=== PATIENT | male | born 1950 | race Caucasian/White ===

== ENCOUNTER → 2017-12-30 17:07 | Outpatient (CLI) | payer MEDICARE, OTHER, SELFPAY ==
[2017-12-30 18:07] LABS: Add Manual Diff / Slide Review NO; Basophils Percent Auto 0.2 % (0-2); Hematocrit 44.8 % (41-53); Lymphocytes Percent Auto 6.5 % (25-40); Mean Corpuscular HGB Conc 33.5 % (30-36); Mean Corpuscular Hemoglobin 31.2 PG (26-34); Mean Corpuscular Volume 93.2 fL (80-100); Monocytes Percent Auto 12.7 % (3-14); Neutrophils Absolute Auto 4000 /uL (3000-5900); Neutrophils Percent Auto 80.6 % (50-75); Platelet Count 221 X10^3/uL (150-400); Red Blood Cell Count 4.81 X10^6/uL (4.5-5.9); Red Cell Distribution Width 14.9 % (11.6-14.8)
[2017-12-30 18:29] LABS: Alanine Aminotransferase 52 IU/L (21-72); Albumin 4.3 g/dL (3.5-5.0); Albumin Globulin Ratio 1.7 (1.0-2.8); Alkaline Phosphatase 117 U/L (38-126); Aspartate Aminotransferase 34 IU/L (17-59); Bilirubin Total 0.6 mg/dL (0.2-1.3); Blood Urea Nitrogen 10 mg/dL (9-20); Calcium 9.2 mg/dL (8.4-10.2); Carbon Dioxide 24 mmol/L (22-32); Chloride 102 mmol/L (98-107); Cholesterol 177 mg/dL (140-199); Estimated Glomerular Filt Rate > 60.0 mL/min (>60); Globulin 2.6 g/dL (1.7-4.1); Glucose 91 mg/dL (80-110); HDL Cholesterol 70 mg/dL (40-60); HEMOLYSIS 15 (0-50); LDL Cholesterol Calculated 86 mg/dL (<100); Potassium 4.2 mmol/L (3.4-5.1); Sodium 140 mmol/L (137-145); Total Protein 6.9 g/dL (6.3-8.2); Triglycerides 104 mg/dL (35-150)
[2017-12-30 18:46] LABS: Free T4, Direct Thyroxine 1.28 ng/dL (0.78-2.19)
[2017-12-30 18:59] LABS: Prostate Specific Antigen Scrn 4.08 ng/mL (0.1-4.0); Thyroid Stimulating Hormone < 0.02 uIU/mL (0.47-4.68)
== END ==
PROVIDERS: PCP Internal Medicine; Visit Provider Internal Medicine
DX: G35 Multiple sclerosis (principal); E78.2 Mixed hyperlipidemia; E03.9 Hypothyroidism, unspecified; Z12.5 Encounter for screening for malignant neoplasm of prostate
CPT/HCPCS: 36415; 80053; 80061; 84439; 84443; 85025; G0103

== ENCOUNTER → 2018-04-21 17:23 | Outpatient (CLI) | payer MEDICARE, OTHER, SELFPAY | PROVIDERS: Family Provider Internal Medicine; PCP Internal Medicine; Visit Provider Internal Medicine | DX: R97.20 Elevated prostate specific antigen [PSA] (principal) | CPT/HCPCS: 36415; 84153 ==

== ENCOUNTER → 2018-07-16 13:19 | Outpatient (CLI) | payer MEDICARE, OTHER, SELFPAY ==
[2018-07-16 14:22] LABS: Appearance Urine UA SL CLOUDY; Bilirubin Urine UA NEGATIVE (NEGATIVE); Color Urine UA YELLOW; Glucose Urine UA NEGATIVE (Negative); Ketones Urine UA NEGATIVE (NEGATIVE); Leukocyte Esterase Urine UA 1+ (NEGATIVE); Nitrite Urine UA POSITIVE (Negative); Occult Blood Urine UA 3+ (Negative); Protein Urine UA 2+ (Negative); Urobilinogen Urine UA 0.2 E.U./dL (0.2); pH Urine UA 8.5 (4.5-8.0)
[2018-07-16 14:46] LABS: RBC Urine 10-30/HPF (0-5/HPF); Triple Phosphate Crystal Urine Moderate; WBC Urine 30-100/HPF (0-5/HPF)
[2018-07-16 14:47] LABS: Bacteria Urine Many (>30); Culture Indicated Urine Specimen Cultured
== END ==
PROVIDERS: Family Provider Internal Medicine; PCP Internal Medicine; Visit Provider Student in an Organized Health Care Education/Training Program
DX: N30.01 Acute cystitis with hematuria (principal)
CPT/HCPCS: 81001; 87077; 87086; 87186

== ENCOUNTER → 2018-07-23 12:21 | Outpatient (CLI) | payer MEDICARE, OTHER, SELFPAY | PROVIDERS: Family Provider Internal Medicine; PCP Internal Medicine; Visit Provider Internal Medicine | DX: N39.0 Urinary tract infection, site not specified (principal) | CPT/HCPCS: 87077; 87086 ==

== ENCOUNTER → 2018-08-11 16:02 | Outpatient (CLI) | payer MEDICARE, OTHER, SELFPAY | PROVIDERS: PCP Internal Medicine; Visit Provider Internal Medicine | DX: N39.0 Urinary tract infection, site not specified (principal) | CPT/HCPCS: 87077; 87086; 87186 ==

== ENCOUNTER → 2018-11-07 13:23 | Outpatient (CLI) | payer MEDICARE, OTHER, SELFPAY ==
[2018-11-07 14:42] LABS: Add Manual Diff / Slide Review NO; Basophils Absolute Auto 0 /uL (0-100); Basophils Percent Auto 0.1 % (0-2); Eosinophils Absolute Auto 0 /uL (0-450); Hematocrit 46.4 % (41-53); Hemoglobin 15.2 g/dL (13.5-17.5); Lymphocytes Absolute Auto 300 /uL (1100-4500); Lymphocytes Percent Auto 8.1 % (25-40); Mean Corpuscular HGB Conc 32.7 % (30-36); Mean Corpuscular Volume 94.6 fL (80-100); Monocytes Absolute Auto 500 /uL (0-900); Monocytes Percent Auto 13.7 % (3-14); Neutrophils Absolute Auto 3100 /uL (1500-7000); Neutrophils Percent Auto 78.1 % (50-75); Platelet Count 196 X10^3/uL (150-400); Red Cell Distribution Width 15.5 % (11.6-14.8); White Blood Cell Count 3.9 X10^3/uL (4.5-11.0)
[2018-11-07 16:08] LABS: Alanine Aminotransferase 74 IU/L (21-72); Albumin 4.3 g/dL (3.5-5.0); Albumin Globulin Ratio 1.4 (1.0-2.8); Alkaline Phosphatase 143 U/L (38-126); Aspartate Aminotransferase 50 IU/L (17-59); Bilirubin Total 0.5 mg/dL (0.2-1.3); Blood Urea Nitrogen 9 mg/dL (9-20); Calcium 9.1 mg/dL (8.4-10.2); Carbon Dioxide 29 mmol/L (22-32); Chloride 100 mmol/L (98-107); Cholesterol 196 mg/dL (140-199); Estimated Glomerular Filt Rate > 60.0 mL/min (>60); Globulin 3.1 g/dL (1.7-4.1); Glucose 81 mg/dL (80-110); HDL Cholesterol 63 mg/dL (40-60); HEMOLYSIS < 15 (0-50); LDL Cholesterol Calculated 111 mg/dL (<100); Potassium 3.7 mmol/L (3.4-5.1); Sodium 140 mmol/L (137-145); Total Protein 7.4 g/dL (6.3-8.2); Triglycerides 109 mg/dL (35-150)
[2018-11-07 16:39] LABS: Prostate Specific Antigen 3.75 ng/mL (0.10-4.00)
[2018-11-07 16:41] LABS: Thyroid Stimulating Hormone < 0.02 uIU/mL (0.47-4.68)
[2018-11-07 16:57] LABS: Vitamin B12 474 pg/mL (239-931)
[2018-11-11 15:26] LABS: Carbamazepine Tegretol Level 11.5 mg/L (4.0-12.0)
== END ==
PROVIDERS: PCP Internal Medicine
DX: G50.0 Trigeminal neuralgia (principal); E03.9 Hypothyroidism, unspecified; E53.8 Deficiency of other specified B group vitamins; E78.2 Mixed hyperlipidemia; R94.5 Abnormal results of liver function studies; R97.20 Elevated prostate specific antigen [PSA]
CPT/HCPCS: 36415; 80053; 80061; 80156; 82607; 84153; 84439; 84443; 85025

== ENCOUNTER → 2019-01-29 11:01 | Outpatient (CLI) | payer MEDICARE, OTHER, SELFPAY ==
[2019-01-29 12:15] LABS: Appearance Urine UA SL CLOUDY; Bilirubin Urine UA NEGATIVE (NEGATIVE); Color Urine UA YELLOW; Glucose Urine UA NEGATIVE (Negative); Ketones Urine UA NEGATIVE (NEGATIVE); Leukocyte Esterase Urine UA 1+ (NEGATIVE); Nitrite Urine UA POSITIVE (Negative); Occult Blood Urine UA NEGATIVE (Negative); Protein Urine UA NEGATIVE (Negative); Specific Gravity Urine UA 1.015 (1.000-1.035); Urobilinogen Urine UA 0.2 E.U./dL (0.2); pH Urine UA 5.5 (4.5-8.0)
[2019-01-29 12:42] LABS: RBC Urine 0-1/HPF (0-5/HPF)
[2019-01-29 12:43] LABS: Amorphous Sediment Urine 2+; Bacteria Urine Many (>30); Culture Indicated Urine Specimen Cultured; Squamous Epithelial Cell Urine 0-1 /HPF (0-5/HPF); WBC Urine 1-5/HPF (0-5/HPF)
== END ==
PROVIDERS: PCP Internal Medicine; Visit Provider Internal Medicine
DX: R82.90 Unspecified abnormal findings in urine (principal); Z87.440 Personal history of urinary (tract) infections
CPT/HCPCS: 81003; 81015; 87077; 87086

== ENCOUNTER → 2019-02-10 15:00 | Outpatient (CLI) | payer MEDICARE, OTHER, SELFPAY | PROVIDERS: PCP Internal Medicine; Visit Provider Internal Medicine | DX: R30.0 Dysuria (principal) | CPT/HCPCS: 87077; 87086 ==

== ENCOUNTER 2019-03-01 14:43 | Observation (INO) | payer MEDICARE, OTHER, SELFPAY ==
[2019-03-01] VITALS (7 sets, daily range): BP systolic 127–185; BP diastolic 58–82; PULSE 78–107; RESP 14–18; TEMP 37.4–37.9; O2SAT 81–100; BMI 30.3
--- NOTE | 2019-03-01 14:52 | DI.RAD.S_ITS ---
PROCEDURE: XR CHEST 1V INDICATIONS: weakness confusion, hypoxia TECHNIQUE: One view of the chest was acquired. COMPARISON: [facility], , CHEST 1 VIEW, 04/25/2016, 13:10. FINDINGS: Surgical changes and devices: None. Lungs and pleura: There are low lung volumes, which may be related to shallow inspiration. Slight increased attenuation at the bilateral lung bases is oriented in a somewhat horizontal fashion. No large area of consolidation is present. No effusion or pneumothorax is appreciated. Mediastinum: Mediastinal contours appear normal. Heart size is normal. Bones and chest wall: No suspicious bony lesions. Overlying soft tissues appear unremarkable. IMPRESSION: Mild basilar atelectasis. No definite pneumonia. Dictated by: Uriel Arellano M.D. on 03/01/2019 at 14:30 Approved by: Uriel Arellano M.D. on 03/01/2019 at 14:31
--- NOTE | 2019-03-01 14:55 | ED_ITS ---
HPI - Altered Mental Status General Chief Complaint: Neuro Symptoms/Deficit Stated Complaint: Altered mental state Time Seen by Provider: 03/01/19 14:51 Source: EMS History of Present Illness HPI narrative: Patient is a 69-year-old male with history of MS presenting with decreasing mental status. He actually is found to be hypoxic he is not typically on oxygen but has a room air sat of 79% with good waveform. He is very slow to respond and warm to touch. He appears to be bed bound. Patient is at bedside now. She states his mental status actually declining yesterday. He normally is awake alert and oriented she is able to communicate with her easily. He texted her yesterday and said he was taking some of his medication. 2 pill bottles were right next to each other she thinks that he may have taken more oxycodone than he normally takes. Today he noticed that he was a little off an extra sleepy. She was unable to wake him up this afternoon.. At which point EMS was called. He is quite somnolent is in very difficult to arouse. He also has a history of subdural hematoma with recurrent bleed. Related Data Home Medications Medication Instructions Recorded Confirmed Gilenya 0.5 mg PO QDAY #0 04/25/16 03/01/19 carbamazepine ER 400 mg 400 mg PO BID 11/04/18 03/01/19 tablet,extended release,12 hr levothyroxine 150 mcg PO QAM 03/01/19 03/01/19 methylphenidate HCl 5 mg PO DAILY 03/01/19 03/01/19 Previous Rx's Medication Instructions Recorded [BACLOFEN INTRATHECAL] #0 03/29/16 liothyronine [Cytomel] 5 mcg PO BID #180 tab 02/28/18 amitriptyline 10 mg PO HS #90 tab 03/03/18 atorvastatin 10 mg tablet 10 mg PO HS #90 tab 07/21/18 venlafaxine ER 75 mg 75 mg PO TID #270 tab 11/07/18 capsule,extended release 24 hr gabapentin 300 mg capsule See Rx Instructions .ROUTE 12/29/18 .COMPLEX #990 cap oxycodone 20 mg tablet 10 - 40 mg PO Q4H PRN #540 tab 12/29/18 Allergies Allergy/AdvReac Type Severity Reaction Status Date / Time ciprofloxacin [CIPROFLOXACIN] Allergy Intermediate diarrhea Verified 03/01/19 15:00 (AFTER ONE TAB?!) codeine [CODEINE] AdvReac Mild MAKES HIM Verified 03/01/19 15:00 ILL morphine [MORPHINE] AdvReac Unknown NAUSEA / Verified 03/01/19 15:00 VOMITING Review of Systems Review of Systems ROS Unobtainable: Unobtainable due to medical condition Exam Initial Vital Signs Initial Vital Signs: Vital Signs Temperature 100.3 F H 03/01/19 14:42 Pulse Rate 86 03/01/19 14:42 Respiratory Rate 14 03/01/19 14:42 Blood Pressure 150/79 H 03/01/19 14:42 Pulse Oximetry 81 L 03/01/19 14:42 Gen.: Decreased mental status arousable to pain only HEENT: Head is atraumatic face symmetric Neck: Supple Lungs: Clear bilaterally no wheezes rales or rhonchi decreased respiratory rate Cardiac: Regular rate and rhythm no murmur Abdomen: Soft multiple scars noted Extremities: Lower legs are swollen feet are edematous no gross bony deformity Neurologic: Arousable to painful stimuli, Scores GCS [place] coma scale eye opening: To pressure [place] coma scale verbal response: Confused Fausto coma scale motor response: Localising [place] coma scale total score: 11 Course Orders Ordered: ED Orders 03/01/19 14:52 XR chest 1V Stat 03/01/19 14:53 EKG-12 Lead Stat 03/01/19 15:30 CT head/brain wo con Stat 03/01/19 15:43 B Type Natriuretic Peptide Stat Complete Blood Count AUTO DIFF Stat Comprehensive Metabolic Panel Stat Lactate (Lactic Acid) Stat Procalcitonin Stat Troponin & CK Cardiac Panel Stat 03/01/19 16:04 Acetaminophen Stat Ammonia (NH3) Stat Blood Culture Stat Ethanol (ETOH) Stat Salicylate Stat 03/01/19 16:11 Urine Drug Screen, Rapid Stat 03/01/19 16:41 Arterial Blood Gas Stat 03/01/19 17:06 CT abdomen pelvis w con Stat CT angio chest PE protocol Stat Discontinued Medications Acetaminophen (Tylenol) 650 mg ME NOW ONE Stop: 03/01/19 15:26 Last Admin: 03/01/19 16:36 Dose: 650 mg Sodium Chloride (Normal Saline 0.9%) 3,300 mls @ 1,100 mls/hr 30 ml/kg infuse over 3 hr (3300 ml) IV NOW ONE Stop: 03/01/19 18:24 Last Infusion: 03/01/19 19:15 Dose: 0 mls/hr Admin: 03/01/19 16:09 Dose: 1,100 mls/hr Naloxone HCl (Narcan) 2 mg IV NOW ONE Stop: 03/01/19 16:57 Last Admin: 03/01/19 17:00 Dose: 2 mg Vital Signs - 8 hr 03/01/19 14:42 03/01/19 16:00 03/01/19 16:30 Temperature 100.3 F H Pulse Rate 86 78 85 Respiratory Rate 14 16 Blood Pressure 150/79 H Blood Pressure [Left Arm] 127/58 L 170/71 H Pulse Oximetry 81 L 100 100 03/01/19 17:48 03/01/19 19:10 Temperature 99.3 F Pulse Rate 92 H 84 Respiratory Rate 17 Blood Pressure 164/82 H Blood Pressure [Left Arm] 185/77 H Pulse Oximetry 92 96 MDM - Altered Mental Status Lab Data Attestation: I reviewed the patient's lab results. Result diagrams: 03/01/19 15:43 03/01/19 15:43 Lab Results 03/01/19 03/01/19 03/01/19 Range/Units 15:43 15:43 15:43 WBC 6.1 (4.5-11.0) X10^3/uL RBC 4.56 (4.5-5.9) X10^6/uL Hgb 14.4 (13.5-17.5) g/dL Hct 43.7 (41-53) % MCV 95.6 (80-100) fL MCH 31.5 (26-34) PG MCHC 32.9 (30-36) % RDW 15.4 H (11.6-14.8) % Plt Count 208 (150-400) X10^3/uL Neut % (Auto) 80.5 H (50-75) % Lymph % (Auto) 5.4 L (25-40) % [place] % (Auto) 13.8 (3-14) % Eos % (Auto) 0.1 L (2-4) % Baso % (Auto) 0.2 (0-2) % Neut # (Auto) 4900 (5837-2121) /uL Lymph # (Auto) 300 L (0905-9111) /uL [place] # (Auto) 800 (0-900) /uL Eos # (Auto) 0 (0-450) /uL Baso # (Auto) 0 (0-100) /uL ABG pH (7.35-7.45) ABG pCO2 (35-45) mmHg ABG pO2 (80-100) mmHg ABG HCO3 (22-26) mmol/L ABG Total CO2 (21-31) mmol/L ABG O2 Saturation (95-100) % ABG Base Excess (-2-2) mmol/L FiO2 Sodium 140 (137-145) mmol/L Potassium 4.2 (3.4-5.1) mmol/L Chloride 104 (98-107) mmol/L Carbon Dioxide 27 (22-32) mmol/L BUN 14 (9-20) mg/dL Creatinine 0.60 L (0.66-1.25) mg/dL Estimated GFR > 60.0 (>60) mL/min BUN/Creatinine Ratio 23.3 H (6-22) Glucose 106 (80-110) mg/dL Lactate (0.7-2.1) mmol/L Calcium 9.2 (8.4-10.2) mg/dL Total Bilirubin 0.7 (0.2-1.3) mg/dL AST 42 (17-59) IU/L ALT 38 (21-72) IU/L Alkaline Phosphatase 112 (38-126) U/L Ammonia (9-30) umol/L Total Creatine Kinase (55-170) U/L CK-MB (CK-2) (<2.37) ng/mL CK-MB (CK-2) Rel Index (1.5-5.0) % Troponin I (0.01-0.034) ng/mL B-Natriuretic Peptide (<100) Total Protein 7.1 (6.3-8.2) g/dL Albumin 4.2 (3.5-5.0) g/dL Globulin 2.9 (1.7-4.1) g/dL Albumin/Globulin Ratio 1.4 (1.0-2.8) Procalcitonin < 0.05 (<0.5) ng/mL Salicylates (<20) mg/dL Urine Opiates Screen (Negative) Ur Oxycodone Screen (Negative) Urine Methadone Screen (Negative) Acetaminophen (10-30) ug/mL Ur Barbiturates Screen (Negative) U Tricyclic Antidepress (Negative) Ur Phencyclidine Scrn (Negative) Ur Amphetamines Screen (Negative) U Methamphetamines Scrn (Negative) Ur MDMA Scrn (Ecstasy) (Negative) U Benzodiazepines Scrn (Negative) Urine Cocaine Screen (Negative) U Marijuana (THC) Screen (Negative) Ethyl Alcohol ( - 10) mg/dL 03/01/19 03/01/19 03/01/19 Range/Units 15:43 15:43 15:43 WBC (4.5-11.0) X10^3/uL RBC (4.5-5.9) X10^6/uL Hgb (13.5-17.5) g/dL Hct (41-53) % MCV (80-100) fL MCH (26-34) PG MCHC (30-36) % RDW (11.6-14.8) % Plt Count (150-400) X10^3/uL Neut % (Auto) (50-75) % Lymph % (Auto) (25-40) % [place] % (Auto) (3-14) % Eos % (Auto) (2-4) % Baso % (Auto) (0-2) % Neut # (Auto) (2844-4341) /uL Lymph # (Auto) (3863-1761) /uL [place] # (Auto) (0-900) /uL Eos # (Auto) (0-450) /uL Baso # (Auto) (0-100) /uL ABG pH (7.35-7.45) ABG pCO2 (35-45) mmHg ABG pO2 (80-100) mmHg ABG HCO3 (22-26) mmol/L ABG Total CO2 (21-31) mmol/L ABG O2 Saturation (95-100) % ABG Base Excess (-2-2) mmol/L FiO2 Sodium (137-145) mmol/L Potassium (3.4-5.1) mmol/L Chloride (98-107) mmol/L Carbon Dioxide (22-32) mmol/L BUN (9-20) mg/dL Creatinine (0.66-1.25) mg/dL Estimated GFR (>60) mL/min BUN/Creatinine Ratio (6-22) Glucose (80-110) mg/dL Lactate 1.2 (0.7-2.1) mmol/L Calcium (8.4-10.2) mg/dL Total Bilirubin (0.2-1.3) mg/dL AST (17-59) IU/L ALT (21-72) IU/L Alkaline Phosphatase (38-126) U/L Ammonia (9-30) umol/L Total Creatine Kinase 141 (55-170) U/L CK-MB (CK-2) 2.64 H (<2.37) ng/mL CK-MB (CK-2) Rel Index 1.9 (1.5-5.0) % Troponin I < 0.012 (0.01-0.034) ng/mL B-Natriuretic Peptide < 100 (<100) Total Protein (6.3-8.2) g/dL Albumin (3.5-5.0) g/dL Globulin (1.7-4.1) g/dL Albumin/Globulin Ratio (1.0-2.8) Procalcitonin (<0.5) ng/mL Salicylates (<20) mg/dL Urine Opiates Screen (Negative) Ur Oxycodone Screen (Negative) Urine Methadone Screen (Negative) Acetaminophen (10-30) ug/mL Ur Barbiturates Screen (Negative) U Tricyclic Antidepress (Negative) Ur Phencyclidine Scrn (Negative) Ur Amphetamines Screen (Negative) U Methamphetamines Scrn (Negative) Ur MDMA Scrn (Ecstasy) (Negative) U Benzodiazepines Scrn (Negative) Urine Cocaine Screen (Negative) U Marijuana (THC) Screen (Negative) Ethyl Alcohol ( - 10) mg/dL 03/01/19 03/01/19 03/01/19 Range/Units 16:04 16:04 16:11 WBC (4.5-11.0) X10^3/uL RBC (4.5-5.9) X10^6/uL Hgb (13.5-17.5) g/dL Hct (41-53) % MCV (80-100) fL MCH (26-34) PG MCHC (30-36) % RDW (11.6-14.8) % Plt Count (150-400) X10^3/uL Neut % (Auto) (50-75) % Lymph % (Auto) (25-40) % [place] % (Auto) (3-14) % Eos % (Auto) (2-4) % Baso % (Auto) (0-2) % Neut # (Auto) (8302-9283) /uL Lymph # (Auto) (6608-4775) /uL [place] # (Auto) (0-900) /uL Eos # (Auto) (0-450) /uL Baso # (Auto) (0-100) /uL ABG pH (7.35-7.45) ABG pCO2 (35-45) mmHg ABG pO2 (80-100) mmHg ABG HCO3 (22-26) mmol/L ABG Total CO2 (21-31) mmol/L ABG O2 Saturation (95-100) % ABG Base Excess (-2-2) mmol/L FiO2 Sodium (137-145) mmol/L Potassium (3.4-5.1) mmol/L Chloride (98-107) mmol/L Carbon Dioxide (22-32) mmol/L BUN (9-20) mg/dL Creatinine (0.66-1.25) mg/dL Estimated GFR (>60) mL/min BUN/Creatinine Ratio (6-22) Glucose (80-110) mg/dL Lactate (0.7-2.1) mmol/L Calcium (8.4-10.2) mg/dL Total Bilirubin (0.2-1.3) mg/dL AST (17-59) IU/L ALT (21-72) IU/L Alkaline Phosphatase (38-126) U/L Ammonia 22.0 (9-30) umol/L Total Creatine Kinase (55-170) U/L CK-MB (CK-2) (<2.37) ng/mL CK-MB (CK-2) Rel Index (1.5-5.0) % Troponin I (0.01-0.034) ng/mL B-Natriuretic Peptide (<100) Total Protein (6.3-8.2) g/dL Albumin (3.5-5.0) g/dL Globulin (1.7-4.1) g/dL Albumin/Globulin Ratio (1.0-2.8) Procalcitonin (<0.5) ng/mL Salicylates < 1.0 (<20) mg/dL Urine Opiates Screen Negative (Negative) Ur Oxycodone Screen Positive H (Negative) Urine Methadone Screen Negative (Negative) Acetaminophen < 10 L (10-30) ug/mL Ur Barbiturates Screen Negative (Negative) U Tricyclic Antidepress Positive H (Negative) Ur Phencyclidine Scrn Negative (Negative) Ur Amphetamines Screen Negative (Negative) U Methamphetamines Scrn Negative (Negative) Ur MDMA Scrn (Ecstasy) Negative (Negative) U Benzodiazepines Scrn Negative (Negative) Urine Cocaine Screen Negative (Negative) U Marijuana (THC) Screen Negative (Negative) Ethyl Alcohol < 10 ( - 10) mg/dL 03/01/19 Range/Units 16:41 WBC (4.5-11.0) X10^3/uL RBC (4.5-5.9) X10^6/uL Hgb (13.5-17.5) g/dL Hct (41-53) % MCV (80-100) fL MCH (26-34) PG MCHC (30-36) % RDW (11.6-14.8) % Plt Count (150-400) X10^3/uL Neut % (Auto) (50-75) % Lymph % (Auto) (25-40) % [place] % (Auto) (3-14) % Eos % (Auto) (2-4) % Baso % (Auto) (0-2) % Neut # (Auto) (1906-7495) /uL Lymph # (Auto) (7264-4944) /uL [place] # (Auto) (0-900) /uL Eos # (Auto) (0-450) /uL Baso # (Auto) (0-100) /uL ABG pH 7.25 L* (7.35-7.45) ABG pCO2 64.7 H* (35-45) mmHg ABG pO2 98 (80-100) mmHg ABG HCO3 29 H (22-26) mmol/L ABG Total CO2 30 (21-31) mmol/L ABG O2 Saturation 96 (95-100) % ABG Base Excess 1.0 (-2-2) mmol/L FiO2 44 Sodium (137-145) mmol/L Potassium (3.4-5.1) mmol/L Chloride (98-107) mmol/L Carbon Dioxide (22-32) mmol/L BUN (9-20) mg/dL Creatinine (0.66-1.25) mg/dL Estimated GFR (>60) mL/min BUN/Creatinine Ratio (6-22) Glucose (80-110) mg/dL Lactate (0.7-2.1) mmol/L Calcium (8.4-10.2) mg/dL Total Bilirubin (0.2-1.3) mg/dL AST (17-59) IU/L ALT (21-72) IU/L Alkaline Phosphatase (38-126) U/L Ammonia (9-30) umol/L Total Creatine Kinase (55-170) U/L CK-MB (CK-2) (<2.37) ng/mL CK-MB (CK-2) Rel Index (1.5-5.0) % Troponin I (0.01-0.034) ng/mL B-Natriuretic Peptide (<100) Total Protein (6.3-8.2) g/dL Albumin (3.5-5.0) g/dL Globulin (1.7-4.1) g/dL Albumin/Globulin Ratio (1.0-2.8) Procalcitonin (<0.5) ng/mL Salicylates (<20) mg/dL Urine Opiates Screen (Negative) Ur Oxycodone Screen (Negative) Urine Methadone Screen (Negative) Acetaminophen (10-30) ug/mL Ur Barbiturates Screen (Negative) U Tricyclic Antidepress (Negative) Ur Phencyclidine Scrn (Negative) Ur Amphetamines Screen (Negative) U Methamphetamines Scrn (Negative) Ur MDMA Scrn (Ecstasy) (Negative) U Benzodiazepines Scrn (Negative) Urine Cocaine Screen (Negative) U Marijuana (THC) Screen (Negative) Ethyl Alcohol ( - 10) mg/dL Urine Dip Bedside Urine Glucose Negative Bedside Urine Bilirubin - Negative Bedside Urine Ketone - Negative Urine Specific Fox 1.015 Bedside Urine Occult Blood - Negative Bedside Urine pH 6.0 Bedside Urine Protein +/- 15 Bedside Urine Urobilinogen - Negative Bedside Urine Nitrite - Negative Bedside Urine Leukocytes - Negative Esterase Imaging Data Chest x-ray: Radiologist's impression: PROCEDURE: XR CHEST 1V INDICATIONS: weakness confusion, hypoxia TECHNIQUE: One view of the chest was acquired. COMPARISON: [facility], CHEST 1 VIEW, 04/25/2016, 13:10. FINDINGS: Surgical changes and devices: None. Lungs and pleura: There are low lung volumes, which may be related to shallow inspiration. Slight increased attenuation at the bilateral lung bases is oriented in a somewhat horizontal fashion. No large area of consolidation is present. No effusion or pneumothorax is appreciated. Mediastinum: Mediastinal contours appear normal. Heart size is normal. Bones and chest wall: No suspicious bony lesions. Overlying soft tissues appear unremarkable. IMPRESSION: Mild basilar atelectasis. No definite pneumonia. Dictated by: Uriel Arellano M.D. on 03/01/2019 at 14:30 CT scan - head: Radiologist's impression: PROCEDURE: CT HEAD/BRAIN WO CON INDICATIONS: altered mental status TECHNIQUE: Noncontrast 4.5 mm thick angled axial sections acquired from the foramen magnum to the vertex, with coronal and sagittal reformats. For radiation dose reduction, the following was used: automated exposure control, adjustment of mA and/or kV according to patient size. COMPARISON: [facility], CT, HEAD WITHOUT CONTRAST, 01/30/2015, 16:51. [facility], MR, BRAIN W&WO CONTRAST, 04/26/2016, 15:10. [facility], CT, HEAD WITHOUT CONTRAST, 04/25/2016, 20:30. [facility], CT, HEAD WITHOUT CONTRAST, 04/25/2016, 13:22. [facility], CT, HEAD WITHOUT CONTRAST, 03/22/2016, 18:41. [facility],, HEAD WITHOUT CONTRAST, 12/26/2012, 19:29. FINDINGS: Image quality: Excellent. CSF spaces: Basal cisterns are patent. The ventricles are symmetric in size and shape. Brain: Within the subdural space, deep to the craniotomy changes, there is a rind of hyperdense material seen that measures 4 mm in thickness. This is similar to 2016. No significant mass effect is seen. There is minimal, stable midline shift of 2 mm. Volume loss encephalomalacia can be seen involving right cerebral hemisphere, particularly involving the anterior temporal lobe. There is cerebral volume loss for age, with resultant ventricular and sulcal prominence. There are periventricular and deep white matter chronic small vessel ischemic changes. There is intracranial internal carotid artery atherosclerosis. Skull and face: Right sided craniotomy changes are seen. Calvarium and visualized facial bones appear intact, without suspicious lesions. Sinuses: Visualized sinuses and mastoids are clear. IMPRESSION: Deep to the right sided craniotomy change, there is a 4 mm rind of hyperdense material seen, which is similar to 2016. Differential diagnosis includes recurrent subdural hemorrhage and stable postoperative change. Please correlate with known patient history. If clinically appropriate, please consider short-term followup noncontrast head CT. Note: Findings and recommendations discussed by telephone with Dr. Ramirez at 4:50 PM [place] time on the day of dictation. Dictated by: Bubba Lozada M.D. on 03/01/2019 at 15:42 CT scan - chest: Radiologist's impression: PROCEDURE: CT ANGIO CHEST PE PROTOCOL INDICATIONS: hypoxia TECHNIQUE: After the administration of intravenous contrast, 2 mm thick sections acquired from the pulmonary apices to the posterior costophrenic angles. 3-dimensional maximum intensity projection (MIP) coronal and sagittal reformats were then acquired through the thorax. For radiation dose reduction, the following was used: automated exposure control, adjustment of mA and/or kV according to patient size. COMPARISON: [facility], CT, CT HEAD/BRAIN WO [facility], 03/01/2019, 16:07. [facility], CT, T-SPINE WITHOUT CONTRAST, 11/09/2014, 14:23. [facility], CT, L-SPINE WITHOUT CONTRAST, 11/09/2014, 14:23. [facility], CT, CT ABDOMEN PELVIS W CON, 03/01/2019, 17:22. FINDINGS: Image quality: Excellent. Pulmonary arteries: Pulmonary arteries are normal in size, and demonstrate no intraluminal filling defects to suggest central pulmonary embolism. Lungs and pleura: Mild dependent enhancing density is seen, which has the appearance of atelectasis. No pleural effusions or pneumothorax. Central and peripheral airways are patent. Mediastinum: Heart size is normal, without pericardial effusion. No mediastinal or hilar adenopathy. Thoracic aorta is normal in caliber and enhancement. Mild dextroconvex scoliotic curvature is seen. Esophagus is normal in caliber, without hiatal hernia. Bones and chest wall: No suspicious bony lesions. Relatively prominent bony degenerative changes are seen. Ribs and thoracic spine appear intact throughout. Thyroid gland is not well-seen on this study. No axillary or supraclavicular adenopathy. A thoracic spine catheter is seen. Abdomen: Gallstones can be seen within the gallbladder. The visualized portions of the upper abdominal structures are otherwise unremarkable for imaging technique. IMPRESSION: Negative for pulmonary embolism. Incidental note is made of: Mild dependent atelectasis Gallstones Thoracic spine pain catheter Relatively prominent bony degenerative change Mild dextroconvex scoliotic curvature Dictated by: Bubba Lozada M.D. on 03/01/2019 at 17:07 CT scan - abdomen: Radiologist's impression: PROCEDURE: CT ABDOMEN PELVIS W CON INDICATIONS: pain TECHNIQUE: After the administration of intravenous contrast, 5 mm thick sections acquired from the diaphragm to the symphysis. 5 mm coronal and sagittal reformats were acquired. For radiation dose reduction, the following was used: automated exposure control, adjustment of mA and/or kV according to patient size. COMPARISON: [facility], CT, L-SPINE WITHOUT CONTRAST, 11/09/2014, 14:23. [facility], CT, CT ANGIO CHEST PE PROTOCOL, 03/01/2019, 17:22. [facility], CT, CT HEAD/BRAIN WO CON, 03/01/2019, 16:07. FINDINGS: Image quality: There is streak artifact seen through the upper abdomen ABDOMEN: Lung bases: Mild dependent atelectasis is seen. Heart size is normal. Solid organs: Liver is normal in size and enhancement. Gallbladder contains gallstones within its lumen. Biliary system is non dilated. Pancreas enhances normally. Spleen is normal in size and enhancement. No adrenal nodules. Kidneys demonstrate normal size and enhancement, without hydronephrosis. Peritoneum and bowel: There is a moderate amount of stool seen within the rectum. Bowel loops demonstrate normal wall thickness and caliber. No free fluid or air. No appendix (either normal or abnormal) is identified on this study. Diverticulosis is seen, without findings of active diverticulitis. Nodes and vessels: No retroperitoneal or mesenteric adenopathy by size criteri a. Aorta and inferior vena cava are normal in size. An IVC filter is seen. Miscellaneous: No ventral hernias. PELVIS: Genitourinary: There are bladder is decompressed by a Camargo catheter. Miscellaneous: Mild bilateral fat containing inguinal hernias are seen. No enlarged inguinal lymph nodes are seen. There is a thoracic spine catheter seen. Bones: No suspicious bony lesions. No vertebral body compression fractures. Mild dextroconvex scoliotic curvature is seen. Relatively prominent bony degenerative changes are seen. IMPRESSION: No definite, acute abnormality is seen. A moderate amount of stool can be seen within the rectum. Incidental note is made of: Thoracic spine catheter Gallstones Dependent atelectasis Diverticulosis is seen, without findings of active diverticulitis. Camargo catheter A fat-containing bilateral inguinal hernias IVC filter Dextroconvex scoliotic curvature Dictated by: Bubba Lozada M.D. on 03/01/2019 at 17:11 ECG Data Attestation: I personally reviewed and interpreted this ECG as follows: Prior ECG tracings: available for review Interpretation: Normal sinus rhythm rate 84 p.r. interval 144 Q-wave noted in lead [address] elevations no T-wave inversion MDM Narrative Medical decision making narrative: Patient very difficult to arouse. Hypoxic requiring a significant amount of oxygen. Head CT does show questionable bleeding versus scar tissue. Imaging was sent down to [facility] were patient's last CT was done Dr. Bojorquez, neurosurgery at [facility] has reviewed today CT and compared to previous. It looks very similar no acute bleeding. Patient was given 2 mg of Narcan and he became more awake, but still needing oxygen. Confused about why he is here. He actually does not have any vomiting or diarrhea. ABG consistent with hypercapnia and possible opiate overdose. Patient initially febrile 100.3 sepsis workup is negative. No pneumonia no uti. Lactic acid within normal limits procalcitonin is negative. At this time only source of decreasing mental status is opiates. The patient still requiring oxygen and will need to be monitored closely. Dr. Olivares updated on patient's symptoms and test results agrees with observation she will come into the patient. Opiod form filled out Discharge Plan Departure Patient Disposition: Admitted as Observation Clinical Impression: Acute metabolic encephalopathy Opioid overdose Qualifiers: Encounter type: initial encounter Injury intent: accidental or unintentional Qualified Code(s): T40.2X1A - Poisoning by other opioids, accidental (unintentional), initial encounter Discharge Date/Time: 03/01/19 19:18 Interventions: ED Discharge Assessment Last Done: 03/01/19 19:10 Admit Date/Time: 03/01/19 18:57 Admit Provider: Joi Olivares
--- NOTE | 2019-03-01 15:30 | DI.CT.S_ITS ---
PROCEDURE: CT HEAD/BRAIN WO CON INDICATIONS: altered mental status TECHNIQUE: Noncontrast 4.5 mm thick angled axial sections acquired from the foramen magnum to the vertex, with coronal and sagittal reformats. For radiation dose reduction, the following was used: automated exposure control, adjustment of mA and/or kV according to patient size. COMPARISON: [facility], CT, HEAD WITHOUT CONTRAST, 01/30/2015, 16:51. [facility], MR, BRAIN W&WO CONTRAST, 04/26/2016, 15:10. [facility], CT, HEAD WITHOUT CONTRAST, 04/25/2016, 20:30. [facility], CT, HEAD WITHOUT CONTRAST, 04/25/2016, 13:22. [facility], CT, HEAD WITHOUT CONTRAST, 03/22/2016, 18:41. [facility],, HEAD WITHOUT CONTRAST, 12/26/2012, 19:29. FINDINGS: Image quality: Excellent. CSF spaces: Basal cisterns are patent. The ventricles are symmetric in size and shape. Brain: Within the subdural space, deep to the craniotomy changes, there is a rind of hyperdense material seen that measures 4 mm in thickness. This is similar to 2016. No significant mass effect is seen. There is minimal, stable midline shift of 2 mm. Volume loss encephalomalacia can be seen involving right cerebral hemisphere, particularly involving the anterior temporal lobe. There is cerebral volume loss for age, with resultant ventricular and sulcal prominence. There are periventricular and deep white matter chronic small vessel ischemic changes. There is intracranial internal carotid artery atherosclerosis. Skull and face: Right sided craniotomy changes are seen. Calvarium and visualized facial bones appear intact, without suspicious lesions. Sinuses: Visualized sinuses and mastoids are clear. IMPRESSION: Deep to the right sided craniotomy change, there is a 4 mm rind of hyperdense material seen, which is similar to 2016. Differential diagnosis includes recurrent subdural hemorrhage and stable postoperative change. Please correlate with known patient history. If clinically appropriate, please consider short-term followup noncontrast head CT. Note: Findings and recommendations discussed by telephone with Dr. Ramirez at 4:50 PM [place] time on the day of dictation. Dictated by: Bubba Lozada M.D. on 03/01/2019 at 15:42 Approved by: Bubba Lozada M.D. on 03/01/2019 at 15:52
[2019-03-01 16:05] LABS: Add Manual Diff / Slide Review NO; Basophils Absolute Auto 0 /uL (0-100); Basophils Percent Auto 0.2 % (0-2); Eosinophils Absolute Auto 0 /uL (0-450); Eosinophils Percent Auto 0.1 % (2-4); Hematocrit 43.7 % (41-53); Hemoglobin 14.4 g/dL (13.5-17.5); Lymphocytes Absolute Auto 300 /uL (1100-4500); Lymphocytes Percent Auto 5.4 % (25-40); Mean Corpuscular HGB Conc 32.9 % (30-36); Mean Corpuscular Hemoglobin 31.5 PG (26-34); Mean Corpuscular Volume 95.6 fL (80-100); Monocytes Absolute Auto 800 /uL (0-900); Monocytes Percent Auto 13.8 % (3-14); Neutrophils Absolute Auto 4900 /uL (1500-7000); Neutrophils Percent Auto 80.5 % (50-75); Platelet Count 208 X10^3/uL (150-400); Red Blood Cell Count 4.56 X10^6/uL (4.5-5.9); Red Cell Distribution Width 15.4 % (11.6-14.8); White Blood Cell Count 6.1 X10^3/uL (4.5-11.0)
[2019-03-01 16:09] LABS: Creatine Kinase 141 U/L (55-170)
[2019-03-01] MEDS: SODIUM CHLORIDE 0.9% 3,300 ML 1100 ML IV (16:09)
[2019-03-01 16:10] LABS: Lactate (Lactic Acid) 1.2 mmol/L (0.7-2.1)
[2019-03-01 16:22] LABS: Troponin I < 0.012 ng/mL (0.01-0.034)
[2019-03-01 16:25] LABS: CKMB % Relative Index 1.9 % (1.5-5.0); Creatine Kinase MB 2.64 ng/mL (<2.37)
[2019-03-01 16:26] LABS: Procalcitonin < 0.05 ng/mL (<0.5)
[2019-03-01 16:28] LABS: Alanine Aminotransferase 38 IU/L (21-72); Albumin 4.2 g/dL (3.5-5.0); Albumin Globulin Ratio 1.4 (1.0-2.8); Alkaline Phosphatase 112 U/L (38-126); Aspartate Aminotransferase 42 IU/L (17-59); BUN Creatinine Ratio 23.3 (6-22); Bilirubin Total 0.7 mg/dL (0.2-1.3); Blood Urea Nitrogen 14 mg/dL (9-20); Calcium 9.2 mg/dL (8.4-10.2); Carbon Dioxide 27 mmol/L (22-32); Chloride 104 mmol/L (98-107); Estimated Glomerular Filt Rate > 60.0 mL/min (>60); Globulin 2.9 g/dL (1.7-4.1); Glucose 106 mg/dL (80-110); HEMOLYSIS 49 (0-50); Sodium 140 mmol/L (137-145); Total Protein 7.1 g/dL (6.3-8.2)
--- NOTE | 2019-03-01 16:28 | PC.NURSE ---
Patient with AMS since last night. states she thought patient was just different because of his medications maybe he took an extra oxycodone. Today patient is resonding with yes to everything he's asked and is not able to do his normal ADL. Pt with hx of MS and states he's not his usual normal. Hx of CVA with craniotomy.
[2019-03-01 16:30] LABS: Potassium 4.2 mmol/L (3.4-5.1)
[2019-03-01 16:32] LABS: B Type Natriuretic Peptide < 100 (<100)
[2019-03-01] MEDS: ACETAMINOPHEN 650 MG SUPP PR (16:36)
[2019-03-01 16:37] LABS: Urine Amphetamines Negative (Negative); Urine Barbiturates Negative (Negative); Urine Benzodiazepines Negative (Negative); Urine Cocaine Negative (Negative); Urine MDMA Negative (Negative); Urine Methadone Negative (Negative); Urine Methamphetamines Negative (Negative); Urine Morphine/Opi cutoff 2000 Negative (Negative); Urine Oxycodone Positive (Negative); Urine Phencyclidine Negative (Negative); Urine Tetrahydrocannabinol Negative (Negative); Urine Tricyclic Antidepressant Positive (Negative)
[2019-03-01 16:57] LABS: Fractionated Inspired Oxygen 44; HCO3 ABG 29 mmol/L (22-26); Oxygen Saturation ABG 96 % (95-100); PCO2 ABG 64.7 mmHg (35-45); PO2 ABG 98 mmHg (80-100); TCO2 ABG 30 mmol/L (21-31)
[2019-03-01 16:58] LABS: pH ABG 7.25 (7.35-7.45)
[2019-03-01] MEDS: NALOXONE 1 MG/ML SYRINGE 2 MG IV (17:00)
--- NOTE | 2019-03-01 17:06 | DI.CT.S_ITS ---
PROCEDURE: CT ANGIO CHEST PE PROTOCOL INDICATIONS: hypoxia TECHNIQUE: After the administration of intravenous contrast, 2 mm thick sections acquired from the pulmonary apices to the posterior costophrenic angles. 3-dimensional maximum intensity projection (MIP) coronal and sagittal reformats were then acquired through the thorax. For radiation dose reduction, the following was used: automated exposure control, adjustment of mA and/or kV according to patient size. COMPARISON: [facility], CT, CT HEAD/BRAIN WO CON, 03/01/2019, 16:07. [facility], CT, T-SPINE WITHOUT CONTRAST, 11/09/2014, 14:23. [facility], CT, L-SPINE WITHOUT CONTRAST, 11/09/2014, 14:23. [facility], CT, CT ABDOMEN PELVIS W CON, 03/01/2019, 17:22. FINDINGS: Image quality: Excellent. Pulmonary arteries: Pulmonary arteries are normal in size, and demonstrate no intraluminal filling defects to suggest central pulmonary embolism. Lungs and pleura: Mild dependent enhancing density is seen, which has the appearance of atelectasis. No pleural effusions or pneumothorax. Central and peripheral airways are patent. Mediastinum: Heart size is normal, without pericardial effusion. No mediastinal or hilar adenopathy. Thoracic aorta is normal in caliber and enhancement. Mild dextroconvex scoliotic curvature is seen. Esophagus is normal in caliber, without hiatal hernia. Bones and chest wall: No suspicious bony lesions. Relatively prominent bony degenerative changes are seen. Ribs and thoracic spine appear intact throughout. Thyroid gland is not well-seen on this study. No axillary or supraclavicular adenopathy. A thoracic spine catheter is seen. Abdomen: Gallstones can be seen within the gallbladder. The visualized portions of the upper abdominal structures are otherwise unremarkable for imaging technique. IMPRESSION: Negative for pulmonary embolism. Incidental note is made of: Mild dependent atelectasis Gallstones Thoracic spine pain catheter Relatively prominent bony degenerative change Mild dextroconvex scoliotic curvature Dictated by: Bubba Lozada M.D. on 03/01/2019 at 17:07 Approved by: Bubba Lozada M.D. on 03/01/2019 at 17:11
--- NOTE | 2019-03-01 17:06 | DI.CT.S_ITS ---
PROCEDURE: CT ABDOMEN PELVIS W CON INDICATIONS: pain TECHNIQUE: After the administration of intravenous contrast, 5 mm thick sections acquired from the diaphragm to the symphysis. 5 mm coronal and sagittal reformats were acquired. For radiation dose reduction, the following was used: automated exposure control, adjustment of mA and/or kV according to patient size. COMPARISON: [facility], CT, L-SPINE WITHOUT CONTRAST, 11/09/2014, 14:23. [facility], CT, CT ANGIO CHEST PE PROTOCOL, 03/01/2019, 17:22. [facility], CT, CT HEAD/BRAIN WO CON, 03/01/2019, 16:07. FINDINGS: Image quality: There is streak artifact seen through the upper abdomen ABDOMEN: Lung bases: Mild dependent atelectasis is seen. Heart size is normal. Solid organs: Liver is normal in size and enhancement. Gallbladder contains gallstones within its lumen. Biliary system is non dilated. Pancreas enhances normally. Spleen is normal in size and enhancement. No adrenal nodules. Kidneys demonstrate normal size and enhancement, without hydronephrosis. Peritoneum and bowel: There is a moderate amount of stool seen within the rectum. Bowel loops demonstrate normal wall thickness and caliber. No free fluid or air. No appendix (either normal or abnormal) is identified on this study. Diverticulosis is seen, without findings of active diverticulitis. Nodes and vessels: No retroperitoneal or mesenteric adenopathy by size criteria. Aorta and inferior vena cava are normal in size. An IVC filter is seen. Miscellaneous: No ventral hernias. PELVIS: Genitourinary: There are bladder is decompressed by a Camargo catheter. Miscellaneous: Mild bilateral fat containing inguinal hernias are seen. No enlarged inguinal lymph nodes are seen. There is a thoracic spine catheter seen. Bones: No suspicious bony lesions. No vertebral body compression fractures. Mild dextroconvex scoliotic curvature is seen. Relatively prominent bony degenerative changes are seen. IMPRESSION: No definite, acute abnormality is seen. A moderate amount of stool can be seen within the rectum. Incidental note is made of: Thoracic spine catheter Gallstones Dependent atelectasis Diverticulosis is seen, without findings of active diverticulitis. Camargo catheter A fat-containing bilateral inguinal hernias IVC filter Dextroconvex scoliotic curvature Dictated by: Bubba Lozada M.D. on 03/01/2019 at 17:11 Approved by: Bubba Lozada M.D. on 03/01/2019 at 17:15
[2019-03-01 17:58] LABS: Acetaminophen < 10 ug/mL (10-30); Ethanol (ETOH) < 10 mg/dL; Salicylate < 1.0 mg/dL (<20)
--- NOTE | 2019-03-01 19:16 | PC.NURSE ---
at time of transfer to floor 1914 total NS infused 2000ml, not 3300 as indicated for this time in emar, discussed this is Jayla OLSON
[2019-03-01] MEDS: GABAPENTIN 300 MG CAPSULE 900 MG PO (20:44)
[2019-03-01] MEDS: VENLAFAXINE ER 75 MG CAP PO (20:45)
[2019-03-01] MEDS: carBAMazepine 200 MG TABLET 400 MG PO (20:45)
--- NOTE | 2019-03-01 20:45 | PM.HP.1 ---
History of Present Illness Date Patient Seen: 03/01/19 Time Patient Seen: 20:45 Chief complaint: Altered mental state Narrative: Patient is a 69-year-old male with progressive MS, paraplegia here tonight with at bedside after being unarousable earlier today at home. He also has a history of a subdural hematoma which has been stable for some time. Had an extensive workup in the emergency department and finally responded to naloxone 2 mg. He is on the floor now and is alert but slower to respond than normal. reports that he is slow at baseline. He is still requiring supplemental oxygen. He had a temperature to 100.3 in the emergency department but has been afebrile since he has been on the floor. He has no acute complaints of pain at this time. He does not feel short of breath. In discussions with it seems possible that he may have taken pain medication yesterday afternoon instead of his afternoon meds. 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) Adenomatous polyp of colon (Chronic 03/14/11) Family history of coronary arteriosclerosis (Chronic) Pulmonary embolism (Resolved) Surgical History S/P insertion of intrathecal pump (Inactive) S/P craniotomy (Inactive) Family History Unknown Family history of coronary arteriosclerosis Social History Smoking Status: Former smoker Family & Social History Family History Unknown Family history of coronary arteriosclerosis Social History: household members spouse,caregiver Prior Living Arrangements House Safety & Behavioral: Feels Safe in Current Yes Environment Been Physically Hurt or No Threatened By a Person Suicidal Ideation Description None Tobacco & Substance use: Smoking Status Former smoker alcohol intake former Meds Home Medications Medication Instructions Recorded Confirmed Type Gilenya 0.5 mg PO 0700 #0 04/25/16 03/01/19 History oxycodone 20 mg tablet 10 - 40 mg PO Q4H PRN #540 tab 12/29/18 03/01/19 Rx [BACLOFEN INTRATHECAL] CONTINUOUS INTRATHECAL INFUSION 03/01/19 History amitriptyline 10 mg PO 1900 03/01/19 03/01/19 History atorvastatin [Lipitor] 10 mg PO 1900 03/01/19 03/01/19 History baclofen 03/01/19 History carbamazepine 400 mg PO 0700,1900 03/01/19 03/01/19 History cholecalciferol (vitamin D3) 1,000 unit PO 1400 03/01/19 03/01/19 History [Vitamin D3] gabapentin 1,200 mg PO 0700,1400 03/01/19 03/01/19 History gabapentin 900 mg PO 1900 03/01/19 03/01/19 History levothyroxine 150 mcg PO 0700 03/01/19 03/01/19 History liothyronine [Cytomel] 5 mcg PO 0700,1900 03/01/19 03/01/19 History methylphenidate HCl 5 mg PO 0700 03/01/19 03/01/19 History venlafaxine [Effexor XR] 75 mg PO 0700,1400,1900 03/01/19 03/01/19 History Allergies Allergy/AdvReac Type Severity Reaction Status Date / Time ciprofloxacin [CIPROFLOXACIN] Allergy Intermediate diarrhea Verified 03/01/19 15:00 (AFTER ONE TAB?!) codeine [CODEINE] AdvReac Mild MAKES HIM Verified 03/01/19 15:00 ILL morphine [MORPHINE] AdvReac Unknown NAUSEA / Verified 03/01/19 15:00 VOMITING Review of Systems Review of Systems All systems reviewed & are unremarkable except as noted in HPI and below Exam Vital Signs (past 8 hours): - 03/01/19 14:42 03/01/19 16:00 03/01/19 16:30 Temperature 100.3 F H Pulse Rate 86 78 85 Respiratory Rate 14 16 Blood Pressure 150/79 H Blood Pressure [Left Arm] 127/58 L 170/71 H Pulse Oximetry 81 L 100 100 03/01/19 17:48 03/01/19 19:10 03/01/19 19:54 Temperature 99.3 F 99.5 F Pulse Rate 92 H 84 107 H Respiratory Rate 17 18 Blood Pressure 164/82 H 144/65 H Blood Pressure [Left Arm] 185/77 H Pulse Oximetry 92 96 94 Oxygen Delivery Method Nasal Cannula Oxygen Flow Rate 2 Narrative Exam Narrative: General: Well-developed, well-nourished, male, no acute distress. Heart: Regular rate and rhythm, no obvious murmurs appreciated Lungs: Clear to auscultation bilaterally, no wheezes, rales or rhonchi Extremities: Warm and well perfused, bilateral 2+ pitting edema to his feet only, he has straps around his ankles with leads to enable him to move his feet on his home Objective Labs Result Diagrams: 03/01/19 15:43 03/01/19 15:43 Labs: Laboratory Results - last 24 hr 03/01/19 03/01/19 03/01/19 15:43 15:43 15:43 WBC 6.1 RBC 4.56 Hgb 14.4 Hct 43.7 MCV 95.6 MCH 31.5 MCHC 32.9 RDW 15.4 H Plt Count 208 Neut % (Auto) 80.5 H Lymph % (Auto) 5.4 L [place] % (Auto) 13.8 Eos % (Auto) 0.1 L Baso % (Auto) 0.2 Neut # (Auto) 4900 Lymph # (Auto) 300 L [place] # (Auto) 800 Eos # (Auto) 0 Baso # (Auto) 0 ABG pH ABG pCO2 ABG pO2 ABG HCO3 ABG Total CO2 ABG O2 Saturation ABG Base Excess FiO2 Sodium 140 Potassium 4.2 Chloride 104 Carbon Dioxide 27 BUN 14 Creatinine 0.60 L Estimated GFR > 60.0 BUN/Creatinine Ratio 23.3 H Glucose 106 Lactate Calcium 9.2 Total Bilirubin 0.7 AST 42 ALT 38 Alkaline Phosphatase 112 Ammonia Total Creatine Kinase CK-MB (CK-2) CK-MB (CK-2) Rel Index Troponin I B-Natriuretic Peptide Total Protein 7.1 Albumin 4.2 Globulin 2.9 Albumin/Globulin Ratio 1.4 Procalcitonin < 0.05 Salicylates Urine Opiates Screen Ur Oxycodone Screen Urine Methadone Screen Acetaminophen Ur Barbiturates Screen U Tricyclic Antidepress Ur Phencyclidine Scrn Ur Amphetamines Screen U Methamphetamines Scrn Ur MDMA Scrn (Ecstasy) U Benzodiazepines Scrn Urine Cocaine Screen U Marijuana (THC) Screen Ethyl Alcohol 03/01/19 03/01/19 03/01/19 15:43 15:43 15:43 WBC RBC Hgb Hct MCV MCH MCHC RDW Plt Count Neut % (Auto) Lymph % (Auto) [place] % (Auto) Eos % (Auto) Baso % (Auto) Neut # (Auto) Lymph # (Auto) [place] # (Auto) Eos # (Auto) Baso # (Auto) ABG pH ABG pCO2 ABG pO2 ABG HCO3 ABG Total CO2 ABG O2 Saturation ABG Base Excess FiO2 Sodium Potassium Chloride Carbon Dioxide BUN Creatinine Estimated GFR BUN/Creatinine Ratio Glucose Lactate 1.2 Calcium Total Bilirubin AST ALT Alkaline Phosphatase Ammonia Total Creatine Kinase 141 CK-MB (CK-2) 2.64 H CK-MB (CK-2) Rel Index 1.9 Troponin I < 0.012 B-Natriuretic Peptide < 100 Total Protein Albumin Globulin Albumin/Globulin Ratio Procalcitonin Salicylates Urine Opiates Screen Ur Oxycodone Screen Urine Methadone Screen Acetaminophen Ur Barbiturates Screen U Tricyclic Antidepress Ur Phencyclidine Scrn Ur Amphetamines Screen U Methamphetamines Scrn Ur MDMA Scrn (Ecstasy) U Benzodiazepines Scrn Urine Cocaine Screen U Marijuana (THC) Screen Ethyl Alcohol 03/01/19 03/01/19 03/01/19 16:04 16:04 16:11 WBC RBC Hgb Hct MCV MCH MCHC RDW Plt Count Neut % (Auto) Lymph % (Auto) [place] % (Auto) Eos % (Auto) Baso % (Auto) Neut # (Auto) Lymph # (Auto) [place] # (Auto) Eos # (Auto) Baso # (Auto) ABG pH ABG pCO2 ABG pO2 ABG HCO3 ABG Total CO2 ABG O2 Saturation ABG Base Excess FiO2 Sodium Potassium Chloride Carbon Dioxide BUN Creatinine Estimated GFR BUN/Creatinine Ratio Glucose Lactate Calcium Total Bilirubin AST ALT Alkaline Phosphatase Ammonia 22.0 Total Creatine Kinase CK-MB (CK-2) CK-MB (CK-2) Rel Index Troponin I B-Natriuretic Peptide Total Protein Albumin Globulin Albumin/Globulin Ratio Procalcitonin Salicylates < 1.0 Urine Opiates Screen Negative Ur Oxycodone Screen Positive H Urine Methadone Screen Negative Acetaminophen < 10 L Ur Barbiturates Screen Negative U Tricyclic Antidepress Positive H Ur Phencyclidine Scrn Negative Ur Amphetamines Screen Negative U Methamphetamines Scrn Negative Ur MDMA Scrn (Ecstasy) Negative U Benzodiazepines Scrn Negative Urine Cocaine Screen Negative U Marijuana (THC) Screen Negative Ethyl Alcohol < 10 03/01/19 16:41 WBC RBC Hgb Hct MCV MCH MCHC RDW Plt Count Neut % (Auto) Lymph % (Auto) [place] % (Auto) Eos % (Auto) Baso % (Auto) Neut # (Auto) Lymph # (Auto) [place] # (Auto) Eos # (Auto) Baso # (Auto) ABG pH 7.25 L* ABG pCO2 64.7 H* ABG pO2 98 ABG HCO3 29 H ABG Total CO2 30 ABG O2 Saturation 96 ABG Base Excess 1.0 FiO2 44 Sodium Potassium Chloride Carbon Dioxide BUN Creatinine Estimated GFR BUN/Creatinine Ratio Glucose Lactate Calcium Total Bilirubin AST ALT Alkaline Phosphatase Ammonia Total Creatine Kinase CK-MB (CK-2) CK-MB (CK-2) Rel Index Troponin I B-Natriuretic Peptide Total Protein Albumin Globulin Albumin/Globulin Ratio Procalcitonin Salicylates Urine Opiates Screen Ur Oxycodone Screen Urine Methadone Screen Acetaminophen Ur Barbiturates Screen U Tricyclic Antidepress Ur Phencyclidine Scrn Ur Amphetamines Screen U Methamphetamines Scrn Ur MDMA Scrn (Ecstasy) U Benzodiazepines Scrn Urine Cocaine Screen U Marijuana (THC) Screen Ethyl Alcohol Assessment & Plan Assessment & Plan narrative: 69-year-old male with acute respiratory failure secondary to metabolic encephalopathy from possible unintentional opiate overdose. -he has a history of a subdural hematoma and his CT scan was reviewed by [facility] showing no changes since his last CT scan there. -negative sepsis workup -responded to naloxone Plan: Continuous pulse ox for respiratory monitoring. Naloxone available should he require additional doses. Continue his home medications of venlafaxine, carbamazepine and gabapentin. will bring in his MS medication to be given tomorrow morning. Consider MRI if he does not continue to improve overnight DVT prophylaxis: not ambulatory at baseline, SCD's Code Statuss: full code Disposition: Anticipate that he will be able to return home with his wants his mental status has cleared totally. Hopefully this will be in the morning. Greater than 70 minutes was spent evaluating the patient on the floor, including examining the patient, discussing clinical course with clinical and nursing staff, reviewing clinical course in the computer, reviewing outpatient clinic notes and emergency department admission notes, preparing documentation and writing orders for management of care, discussing status with family as appropriate, reviewing plans for the next 24 hours with both patient, family and nursing staff as appropriate. Scores [facility] [place] coma scale eye opening: Spontaneous Fausto coma scale verbal response: Confused [place] coma scale motor response: Obey commands [place] coma scale total score: 14
--- NOTE | 2019-03-01 21:21 | PC.NURSE ---
Addendum entered by Susanne Correa R.N. 03/01/19 22:38: 2130 - Pt brought in home med, labeled and tube to pharmacy requesting a.m. dose dispensing. Pt also states that pt only has BM once or twice a week. unsure of last BM. Pt able to take all meds whole with water. Pt , [place]iz[place], requesting call from Dr. Alberts when he rounds in a.m. Communication note left for a.m. RN as well as verbal report to current shift RN. Original Note: 1924 - Pt to room from ER. Transfer to bed via slider board. Pt drowsy with slow verbal responses. Pt with NC 2L, 95%. Denies feeling SOB. Bilateral LE with cuffs around ankles connected with a strap. Pt reports pt uses device to reposition LE. Pt is chronic chair bound with shona life. Pt to bring in home sling. Pt denies pain, however pt reports chronic right knee pain and right facial trigeminal neuralgia. Pt also with a healing blood blister to left 3rd toe. intact. Pt with intrathecal baclofen pump located on the LUQ. Pt assisted with admission question. Dr. Olivares at bedside. Reviewed home meds. Notified only 2L of IVF from sepsis protocol given. Pt oriented to room and routine, needs reinforcement. Call light in reach. Bed alarm on.
[2019-03-02] VITALS (8 sets, daily range): BP systolic 115–158; BP diastolic 71–98; PULSE 71–102; RESP 8–20; TEMP 36.6–37.7; O2SAT 87–97; BMI 30.5
--- NOTE | 2019-03-02 06:41 | PC.NURSE ---
Sleep most of the shift, awake but still very drowsy declined drink to even some water. Will report to day RN.
--- NOTE | 2019-03-02 08:30 | PM.PN.1 ---
Subjective Date Patient Seen: 03/02/19 Time Patient Seen: 08:30 Interval history: Patient's care and admission status discussed with Dr. Olivares This morning he still seems to be a bit altered to me. He can Pedro Luis and seemingly be back to normal self but seems to be a bit slow in his processing if you will. No specific complaints that I can get out of him. I turned off his oxygen and his oxygen saturation remained at 95% it went up on its own and went down some as well. Exam Vital Signs (past 8 hours): - 03/02/19 04:15 03/02/19 07:00 Temperature 97.9 F 99.9 F H Pulse Rate 72 85 Respiratory Rate 18 8 L Blood Pressure 134/79 152/82 H Pulse Oximetry 97 96 Oxygen Delivery Method Nasal Cannula Oxygen Flow Rate 2 Narrative Exam Narrative: Unremarkable Objective Labs Result Diagrams: 03/01/19 15:43 03/01/19 15:43 Labs: Laboratory Results - last 24 hr 03/01/19 03/01/19 03/01/19 15:43 15:43 15:43 WBC 6.1 RBC 4.56 Hgb 14.4 Hct 43.7 MCV 95.6 MCH 31.5 MCHC 32.9 RDW 15.4 H Plt Count 208 Neut % (Auto) 80.5 H Lymph % (Auto) 5.4 L [place] % (Auto) 13.8 Eos % (Auto) 0.1 L Baso % (Auto) 0.2 Neut # (Auto) 4900 Lymph # (Auto) 300 L [place] # (Auto) 800 Eos # (Auto) 0 Baso # (Auto) 0 ABG pH ABG pCO2 ABG pO2 ABG HCO3 ABG Total CO2 ABG O2 Saturation ABG Base Excess FiO2 Sodium 140 Potassium 4.2 Chloride 104 Carbon Dioxide 27 BUN 14 Creatinine 0.60 L Estimated GFR > 60.0 BUN/Creatinine Ratio 23.3 H Glucose 106 Lactate Calcium 9.2 Total Bilirubin 0.7 AST 42 ALT 38 Alkaline Phosphatase 112 Ammonia Total Creatine Kinase CK-MB (CK-2) CK-MB (CK-2) Rel Index Troponin I B-Natriuretic Peptide Total Protein 7.1 Albumin 4.2 Globulin 2.9 Albumin/Globulin Ratio 1.4 Procalcitonin < 0.05 Salicylates Urine Opiates Screen Ur Oxycodone Screen Urine Methadone Screen Acetaminophen Ur Barbiturates Screen U Tricyclic Antidepress Ur Phencyclidine Scrn Ur Amphetamines Screen U Methamphetamines Scrn Ur MDMA Scrn (Ecstasy) U Benzodiazepines Scrn Urine Cocaine Screen U Marijuana (THC) Screen Ethyl Alcohol 03/01/19 03/01/19 03/01/19 15:43 15:43 15:43 WBC RBC Hgb Hct MCV MCH MCHC RDW Plt Count Neut % (Auto) Lymph % (Auto) [place] % (Auto) Eos % (Auto) Baso % (Auto) Neut # (Auto) Lymph # (Auto) [place] # (Auto) Eos # (Auto) Baso # (Auto) ABG pH ABG pCO2 ABG pO2 ABG HCO3 ABG Total CO2 ABG O2 Saturation ABG Base Excess FiO2 Sodium Potassium Chloride Carbon Dioxide BUN Creatinine Estimated GFR BUN/Creatinine Ratio Glucose Lactate 1.2 Calcium Total Bilirubin AST ALT Alkaline Phosphatase Ammonia Total Creatine Kinase 141 CK-MB (CK-2) 2.64 H CK-MB (CK-2) Rel Index 1.9 Troponin I < 0.012 B-Natriuretic Peptide < 100 Total Protein Albumin Globulin Albumin/Globulin Ratio Procalcitonin Salicylates Urine Opiates Screen Ur Oxycodone Screen Urine Methadone Screen Acetaminophen Ur Barbiturates Screen U Tricyclic Antidepress Ur Phencyclidine Scrn Ur Amphetamines Screen U Methamphetamines Scrn Ur MDMA Scrn (Ecstasy) U Benzodiazepines Scrn Urine Cocaine Screen U Marijuana (THC) Screen Ethyl Alcohol 03/01/19 03/01/19 03/01/19 16:04 16:04 16:11 WBC RBC Hgb Hct MCV MCH MCHC RDW Plt Count Neut % (Auto) Lymph % (Auto) [place] % (Auto) Eos % (Auto) Baso % (Auto) Neut # (Auto) Lymph # (Auto) [place] # (Auto) Eos # (Auto) Baso # (Auto) ABG pH ABG pCO2 ABG pO2 ABG HCO3 ABG Total CO2 ABG O2 Saturation ABG Base Excess FiO2 Sodium Potassium Chloride Carbon Dioxide BUN Creatinine Estimated GFR BUN/Creatinine Ratio Glucose Lactate Calcium Total Bilirubin AST ALT Alkaline Phosphatase Ammonia 22.0 Total Creatine Kinase CK-MB (CK-2) CK-MB (CK-2) Rel Index Troponin I B-Natriuretic Peptide Total Protein Albumin Globulin Albumin/Globulin Ratio Procalcitonin Salicylates < 1.0 Urine Opiates Screen Negative Ur Oxycodone Screen Positive H Urine Methadone Screen Negative Acetaminophen < 10 L Ur Barbiturates Screen Negative U Tricyclic Antidepress Positive H Ur Phencyclidine Scrn Negative Ur Amphetamines Screen Negative U Methamphetamines Scrn Negative Ur MDMA Scrn (Ecstasy) Negative U Benzodiazepines Scrn Negative Urine Cocaine Screen Negative U Marijuana (THC) Screen Negative Ethyl Alcohol < 10 03/01/19 16:41 WBC RBC Hgb Hct MCV MCH MCHC RDW Plt Count Neut % (Auto) Lymph % (Auto) [place] % (Auto) Eos % (Auto) Baso % (Auto) Neut # (Auto) Lymph # (Auto) [place] # (Auto) Eos # (Auto) Baso # (Auto) ABG pH 7.25 L* ABG pCO2 64.7 H* ABG pO2 98 ABG HCO3 29 H ABG Total CO2 30 ABG O2 Saturation 96 ABG Base Excess 1.0 FiO2 44 Sodium Potassium Chloride Carbon Dioxide BUN Creatinine Estimated GFR BUN/Creatinine Ratio Glucose Lactate Calcium Total Bilirubin AST ALT Alkaline Phosphatase Ammonia Total Creatine Kinase CK-MB (CK-2) CK-MB (CK-2) Rel Index Troponin I B-Natriuretic Peptide Total Protein Albumin Globulin Albumin/Globulin Ratio Procalcitonin Salicylates Urine Opiates Screen Ur Oxycodone Screen Urine Methadone Screen Acetaminophen Ur Barbiturates Screen U Tricyclic Antidepress Ur Phencyclidine Scrn Ur Amphetamines Screen U Methamphetamines Scrn Ur MDMA Scrn (Ecstasy) U Benzodiazepines Scrn Urine Cocaine Screen U Marijuana (THC) Screen Ethyl Alcohol Assessment & Plan Assessment & Plan narrative: 1. Altered mental status-at this point medication expansion seems to be the most likely culprit. Patient almost certainly took excessive doses of oxycodone and his dosing is relatively high. However I would expect it to be wearing off for have worn off by now. Patient has multiple other medications that could have had an impact including his venlafaxine, his Tegretol, his gabapentin, even perhaps his tricyclic antidepressant. Patient also uses Ritalin is not had that yet this morning perhaps as part of what I am seeing. At this point no clear evidence of an infectious etiology. No focal findings on neuro exam either upon admission or this morning to suggest a new MILITARY SOURCE OPERATIONS OFFICER event. Imaging of the head seems stable Therefore continue to monitor. His oxygenation appears to be normal at this point. He does not appear to be hypoxic any longer. That was almost certainly related to relative hypopnea secondary to his opiate overdose. 2. Patient's other medical problems including his multiple sclerosis is hypothyroidism his chronic paraplegic status his trigeminal neuralgia etc all appear to be stable. Continue usual medications but holding off on any MILITARY SOURCE OPERATIONS OFFICER affecting medications such as this tricyclic antidepressant and his oxycodone. Continue with his other meds including his Ritalin. Hopefully patient's baseline will reimburse over the next several hours and it will be appropriate to send him home Note: Greater than 45 minutes was spent evaluating the patient on the floor, including examining the patient, discussing clinical course with clinical and nursing staff, reviewing clinical course in the computer, preparing documentation and writing orders for continued management of care, discussing status with family as appropriate, reviewing plans for the next 24 hours with both patient/family and nursing staff as appropriate.
--- NOTE | 2019-03-02 08:34 | P.PN_ITS ---
Subjective Date Patient Seen: 03/02/19 Time Patient Seen: 08:30 Interval history: Patient's care and admission status discussed with Dr. Olivares This morning he still seems to be a bit altered to me. He can Pedro Luis and seemingly be back to normal self but seems to be a bit slow in his processing if you will. No specific complaints that I can get out of him. I turned off his oxygen and his oxygen saturation remained at 95% it went up on its own and went down some as well. Exam Vital Signs (past 8 hours): - 03/02/19 04:15 03/02/19 07:00 Temperature 97.9 F 99.9 F H Pulse Rate 72 85 Respiratory Rate 18 8 L Blood Pressure 134/79 152/82 H Pulse Oximetry 97 96 Oxygen Delivery Method Nasal Cannula Oxygen Flow Rate 2 Narrative Exam Narrative: Unremarkable Objective Labs Result Diagrams: 03/01/19 15:43 03/01/19 15:43 Labs: Laboratory Results - last 24 hr 03/01/19 03/01/19 03/01/19 15:43 15:43 15:43 WBC 6.1 RBC 4.56 Hgb 14.4 Hct 43.7 MCV 95.6 MCH 31.5 MCHC 32.9 RDW 15.4 H Plt Count 208 Neut % (Auto) 80.5 H Lymph % (Auto) 5.4 L [place] % (Auto) 13.8 Eos % (Auto) 0.1 L Baso % (Auto) 0.2 Neut # (Auto) 4900 Lymph # (Auto) 300 L [place] # (Auto) 800 Eos # (Auto) 0 Baso # (Auto) 0 ABG pH ABG pCO2 ABG pO2 ABG HCO3 ABG Total CO2 ABG O2 Saturation ABG Base Excess FiO2 Sodium 140 Potassium 4.2 Chloride 104 Carbon Dioxide 27 BUN 14 Creatinine 0.60 L Estimated GFR > 60.0 BUN/Creatinine Ratio 23.3 H Glucose 106 Lactate Calcium 9.2 Total Bilirubin 0.7 AST 42 ALT 38 Alkaline Phosphatase 112 Ammonia Total Creatine Kinase CK-MB (CK-2) CK-MB (CK-2) Rel Index Troponin I B-Natriuretic Peptide Total Protein 7.1 Albumin 4.2 Globulin 2.9 Albumin/Globulin Ratio 1.4 Procalcitonin < 0.05 Salicylates Urine Opiates Screen Ur Oxycodone Screen Urine Methadone Screen Acetaminophen Ur Barbiturates Screen U Tricyclic Antidepress Ur Phencyclidine Scrn Ur Amphetamines Screen U Methamphetamines Scrn Ur MDMA Scrn (Ecstasy) U Benzodiazepines Scrn Urine Cocaine Screen U Marijuana (THC) Screen Ethyl Alcohol 03/01/19 03/01/19 03/01/19 15:43 15:43 15:43 WBC RBC Hgb Hct MCV MCH MCHC RDW Plt Count Neut % (Auto) Lymph % (Auto) [place] % (Auto) Eos % (Auto) Baso % (Auto) Neut # (Auto) Lymph # (Auto) [place] # (Auto) Eos # (Auto) Baso # (Auto) ABG pH ABG pCO2 ABG pO2 ABG HCO3 ABG Total CO2 ABG O2 Saturation ABG Base Excess FiO2 Sodium Potassium Chloride Carbon Dioxide BUN Creatinine Estimated GFR BUN/Creatinine Ratio Glucose Lactate 1.2 Calcium Total Bilirubin AST ALT Alkaline Phosphatase Ammonia Total Creatine Kinase 141 CK-MB (CK-2) 2.64 H CK-MB (CK-2) Rel Index 1.9 Troponin I < 0.012 B-Natriuretic Peptide < 100 Total Protein Albumin Globulin Albumin/Globulin Ratio Procalcitonin Salicylates Urine Opiates Screen Ur Oxycodone Screen Urine Methadone Screen Acetaminophen Ur Barbiturates Screen U Tricyclic Antidepress Ur Phencyclidine Scrn Ur Amphetamines Screen U Methamphetamines Scrn Ur MDMA Scrn (Ecstasy) U Benzodiazepines Scrn Urine Cocaine Screen U Marijuana (THC) Screen Ethyl Alcohol 03/01/19 03/01/19 03/01/19 16:04 16:04 16:11 WBC RBC Hgb Hct MCV MCH MCHC RDW Plt Count Neut % (Auto) Lymph % (Auto) [place] % (Auto) Eos % (Auto) Baso % (Auto) Neut # (Auto) Lymph # (Auto) [place] # (Auto) Eos # (Auto) Baso # (Auto) ABG pH ABG pCO2 ABG pO2 ABG HCO3 ABG Total CO2 ABG O2 Saturation ABG Base Excess FiO2 Sodium Potassium Chloride Carbon Dioxide BUN Creatinine Estimated GFR BUN/Creatinine Ratio Glucose Lactate Calcium Total Bilirubin AST ALT Alkaline Phosphatase Ammonia 22.0 Total Creatine Kinase CK-MB (CK-2) CK-MB (CK-2) Rel Index Troponin I B-Natriuretic Peptide Total Protein Albumin Globulin Albumin/Globulin Ratio Procalcitonin Salicylates < 1.0 Urine Opiates Screen Negative Ur Oxycodone Screen Positive H Urine Methadone Screen Negative Acetaminophen < 10 L Ur Barbiturates Screen Negative U Tricyclic Antidepress Positive H Ur Phencyclidine Scrn Negative Ur Amphetamines Screen Negative U Methamphetamines Scrn Negative Ur MDMA Scrn (Ecstasy) Negative U Benzodiazepines Scrn Negative Urine Cocaine Screen Negative U Marijuana (THC) Screen Negative Ethyl Alcohol < 10 03/01/19 16:41 WBC RBC Hgb Hct MCV MCH MCHC RDW Plt Count Neut % (Auto) Lymph % (Auto) [place] % (Auto) Eos % (Auto) Baso % (Auto) Neut # (Auto) Lymph # (Auto) [place] # (Auto) Eos # (Auto) Baso # (Auto) ABG pH 7.25 L* ABG pCO2 64.7 H* ABG pO2 98 ABG HCO3 29 H ABG Total CO2 30 ABG O2 Saturation 96 ABG Base Excess 1.0 FiO2 44 Sodium Potassium Chloride Carbon Dioxide BUN Creatinine Estimated GFR BUN/Creatinine Ratio Glucose Lactate Calcium Total Bilirubin AST ALT Alkaline Phosphatase Ammonia Total Creatine Kinase CK-MB (CK-2) CK-MB (CK-2) Rel Index Troponin I B-Natriuretic Peptide Total Protein Albumin Globulin Albumin/Globulin Ratio Procalcitonin Salicylates Urine Opiates Screen Ur Oxycodone Screen Urine Methadone Screen Acetaminophen Ur Barbiturates Screen U Tricyclic Antidepress Ur Phencyclidine Scrn Ur Amphetamines Screen U Methamphetamines Scrn Ur MDMA Scrn (Ecstasy) U Benzodiazepines Scrn Urine Cocaine Screen U Marijuana (THC) Screen Ethyl Alcohol Assessment & Plan Assessment & Plan narrative: 1. Altered mental status-at this point medication expansion seems to be the most likely culprit. Patient almost certainly took excessive doses of oxycodone and his dosing is relatively high. However I would expect it to be wearing off for have worn off by now. Patient has multiple other medications that could have had an impact including his venlafaxine, his Tegretol, his gabapentin, even perhaps his tricyclic antidepressant. Patient also uses Ritalin is not had that yet this morning perhaps as part of what I am seeing. At this point no clear evidence of an infectious etiology. No focal findings on neuro exam either upon admission or this morning to suggest a new IRRIGATIONIST event. Imaging of the head seems stable Therefore continue to monitor. His oxygenation appears to be normal at this point. He does not appear to be hypoxic any longer. That was almost certainly related to relative hypopnea secondary to his opiate overdose. 2. Patient's other medical problems including his multiple sclerosis is hypothyroidism his chronic paraplegic status his trigeminal neuralgia etc all appear to be stable. Continue usual medications but holding off on any IRRIGATIONIST affecting medications such as this tricyclic antidepressant and his oxycodone. Continue with his other meds including his Ritalin. Hopefully patient's baseline will reimburse over the next several hours and it will be appropriate to send him home Note: Greater than 45 minutes was spent evaluating the patient on the floor, including examining the patient, discussing clinical course with clinical and nursing staff, reviewing clinical course in the computer, preparing documentation and writing orders for continued management of care, discussing status with family as appropriate, reviewing plans for the next 24 hours with both patient/family and nursing staff as appropriate.
[2019-03-02] MEDS: FINGOLIMOD 0.5 MG 0.5 EACH PO (08:45)
[2019-03-02] MEDS: carBAMazepine 200 MG TABLET 400 MG PO (08:45)
[2019-03-02] MEDS: LIOTHYRONINE 5 MCG TABLET PO (08:46)
[2019-03-02] MEDS: LEVOTHYROXINE 150 MCG TABLET PO (08:46)
[2019-03-02] MEDS: VENLAFAXINE ER 75 MG CAP PO ×2 (08:47→14:08)
[2019-03-02] MEDS: GABAPENTIN 600 MG TABLET 1200 MG PO ×2 (08:53→14:08)
[2019-03-02] MEDS: METHYLPHENIDATE 5 MG TABLET PO (08:54)
[2019-03-02] MEDS: SODIUM CHLORIDE 0.9% FLUSH 10 ML IV (08:54)
--- NOTE | 2019-03-02 09:57 | PC.NURSE ---
Addendum entered by Sanam Jovel R.N. 03/02/19 14:04: UA - contacted re bacteria in urine, he has reviewed and he will be over later afternoon to see pt/spouse. Addendum entered by Sanam Jovel R.N. 03/02/19 13:28: RESP - pt able to use IS to 1000 when cued, RA trial during lunch, maintaining 92-94%. Addendum entered by Sanam Jovel R.N. 03/02/19 11:13: NEURO - speech pattern does remain delayed, clear, pt repeats statement several times, cam follow basic directions with cues, repositioned. Pt req that the scd be turned off as they were bothering his legs. Original Note: AM NOTE - pt eyes are open, does not focus well when addressed, does respond to voice, speech is clear, delayed and pt searches for words, linnea pedal edema, 2l96%, ra trial mid 80's and RT replaced at 1l w/IS instruction, spouse arrives and pt becomes more alert and responds to her questions, still delayed and slow speech pattern, states not hungry, spouse did assist with breakfast and ate some, moans at times, meds admin w/water, pt positioned for comfort and towel neck roll placed, farr w/conc urine.
[2019-03-02 09:59] LABS: Appearance Urine UA SL CLOUDY; Bilirubin Urine UA NEGATIVE (NEGATIVE); Color Urine UA YELLOW; Glucose Urine UA NEGATIVE (Negative); Ketones Urine UA 2+ (NEGATIVE); Leukocyte Esterase Urine UA TRACE (NEGATIVE); Nitrite Urine UA NEGATIVE (Negative); Occult Blood Urine UA 3+ (Negative); Protein Urine UA 1+ (Negative); Urobilinogen Urine UA 0.2 E.U./dL (0.2)
[2019-03-02 10:23] LABS: Bacteria Urine Many (>30); Mucus Urine 1+ (Negative); RBC Urine 10-30/HPF (0-5/HPF); Squamous Epithelial Cell Urine 0-1 /HPF (0-5/HPF); WBC Urine 10-30/HPF (0-5/HPF)
[2019-03-02 10:24] LABS: Culture Indicated Urine Specimen Cultured
--- NOTE | 2019-03-02 11:00 | DIET.PN ---
Dietary Progress Note Assessment: 69y M c progressive MS, paraplegia, suspected unintentional overmedication referred to nutrition re: MNA 10 (at risk for malnutrition). Met c pt and spouse at bedside. Spouse recently got new 9-5 job, working out new home routine as pt home alone from 9am-1pm when emergency medical dispatcher visits. Usual Day: wakes 7am c alarm to take meds c water, waits 1 hr (per thyroid med) before breakfast B: 2 oatmeal craisin cookies c coffee L: hb egg, deli meat, pro bars, snacks D: home made, eats c - grass fed burgers c veg or salad, yoruba Discussed having cooler bag near pt during day to increase variety of food options- focus on PRO and healthy fats to reduce inflammation HT: 182.8cm WT: 102kg (125% IBW) BMI: 30.5 Nutrition Diagnosis: undesirable food choices r/t immobility while works during day aeb reliance on packaged snack bars, BMI 30.5, moves c shona at home. Interventions: chronic constipation (bm 1-2x/w) likely r/t neurological and reduced mobility Discussed adequate PRO and inclusion of healthy fats to support health, moderating refined carbs r/t BMI 30.5 c paraplegia Recc ONS Ensure Enlive 1x/d c breakfast until appetite increases, current POs at 25%. EERs: 2,000kcal, 100g PRO (1g/kg), 3L fluids Monitoring/Evaluations: I&Os
[2019-03-02] MEDS: CHOLECALCIFEROL (VITAMIN D3) 1,000 UNIT TABLET 1000 UNIT PO (14:08)
--- NOTE | 2019-03-02 14:10 | CM.DANOTE ---
DCP/Assessment: Reviewed chart. Patient is a 69yr old male admitted to [facility] with altered mental status. Primary payor is 1)Medicare 2)[employer]. PCP is Dr. Alberts. Met with patient and spouse/Marizol at bedside explained role. Patient is bed bound at baseline. Patient with h/o progressive MS and paraplegia. It is anticipated that patient went into acute respiratory failure from possible unintentional opiate overdose. Patient asked by [facility] if overdose was intentional? Patient adamantly denies suicide ideation. Patient reports that he may have taken his medications twice? Actual overdose explanation given by patient unclear? Spouse reports that she is primary caregiver however, she does leave the residence to work and leaves patient's medications out for him to take at certain times. Patient has caregivers 2x per week through [employer]. Spouse reports that they help get patient in/out of bed and provide her with respite time. Patient's residence was built in 1999 and is completely handicapped assessable. Spouse confirms that she believes that this was a accidental overdose. Spouse comfortable taking patient home and does not anticipate any d/c planning needs. Spouse can transport via w/c van but most likely will need assistance from [facility] staff. P: Anticipate home when stable. CM team to follow closely for needs. Patient hopes to d/c home today. ROBIN Tavares
--- NOTE | 2019-03-02 17:10 | P.DS_ITS ---
History of Present Illness Date Patient Seen: 03/02/19 Time Patient Seen: 17:11 Chief complaint: Altered mental state Narrative: Patient is a 69-year-old male with progressive MS, paraplegia here tonight with at bedside after being unarousable earlier today at home. He also has a history of a subdural hematoma which has been stable for some time. Had an extensive workup in the emergency department and finally responded to naloxone 2 mg. He is on the floor now and is alert but slower to respond than normal. reports that he is slow at baseline. He is still requiring supple mental oxygen. He had a temperature to 100.3 in the emergency department but has been afebrile since he has been on the floor. He has no acute complaints of pain at this time. He does not feel short of breath. In discussions with it seems possible that he may have taken pain medication yesterday afternoon instead of his afternoon meds. {From Dr. Olivares's H&P} Discharge Providers Date of admission: 03/01/19 18:57 Discharge Date: 03/02/19 Primary care physician: Bala Alberts MD Consults: 03/01/19 20:02 Consult to Dietitian, Adult Routine Comment: Reason For Exam: Assessed as high risk 03/01/19 20:20 Consult to Dietitian, Adult Routine Comment: Reason For Exam: assess at high risk Discharge provider: Bala Alberts MD Summary Discharge Diagnosis: 1. Metabolic encephalopathy due to medication mismanagement 2. Hypopnea with hypoxia, resolved 3. Opiate overdose, inadvertent 4. Multiple sclerosis 5. Acquired hypothyroidism 6. Paraplegia due to multiple sclerosis Hospital Course: Patient was admitted to the hospital after extensive workup in the emergency department. He was found to be minimally hypoxic and with an altered mental status. This fell from his history and lack of findings in the ER workup that the most likely etiology for his presenting symptoms and problems were some medication mismanagement home specifically a significantly increased single dose of oxycodone. Patient was monitored in the hospital were slowly over the course of several hours (12-20) patient improved went back to baseline. His mild hypoxia also resolved at time of discharge she was saturating 98% on room air Patient was awake and alert just prior to discharge asking appropriate questions and talking about his presentation and events of the night before in the [facility] Patient's other medical problems were stable not specifically addressed other than continuing his usual treatments and medications Status at Discharge Cognitive/behavioral status at discharge: at baseline, oriented Functional status at discharge: wheelchair bound Overall status at discharge: patient is back to baseline Time Spent with Patient Greater than 30 minutes Exam Vital Signs (past 8 hours): - 03/02/19 09:20 03/02/19 09:25 03/02/19 11:00 Temperature 99.4 F Pulse Rate 98 H Respiratory Rate 10 L Blood Pressure 153/85 H Pulse Oximetry 87 L 94 95 03/02/19 13:30 03/02/19 15:45 Temperature 99.4 F Pulse Rate 102 H Respiratory Rate 18 Blood Pressure 158/98 H Pulse Oximetry 94 94 Oxygen Delivery Method Room Air Oxygen Flow Rate 1 Objective Labs Result Diagrams: 03/01/19 15:43 03/01/19 15:43 Labs: Laboratory Results - last 24 hr 03/01/19 03/02/19 16:04 09:45 Urine Color Yellow Urine Appearance Sl cloudy Urine pH 5.0 Ur Specific [place] 1.020 Urine Protein 1+ H Urine Glucose (UA) Negative Urine Ketones 2+ H Urine Occult Blood 3+ H Urine Nitrate Negative Urine Bilirubin Negative Urine Urobilinogen 0.2 Ur Leukocyte Esterase Trace H Urine RBC 10-30/hpf H Urine WBC 10-30/hpf H Ur Squamous Epith Cells 0-1 /hpf Urine Bacteria Many (>30) H Urine Mucus 1+ H Ur Culture Indicated? Specimen cultured Salicylates < 1.0 Acetaminophen < 10 L Ethyl Alcohol < 10 Discharge Plan Discharge Plan Patient Disposition: Home Discharge Med Rec/Prescriptions Prescriptions: Continued Gilenya 0.5 MG capsule 0.5 mg PO 0700 Qty: 0 RF: 0 oxycodone 20 mg tablet 10 - 40 mg PO Q4H PRN (Reason: pain) Qty: 540 RF: 0 methylphenidate HCl 5 mg tablet 5 mg PO 0700 RF: 0 levothyroxine 150 mcg tablet 150 mcg PO 0700 RF: 0 carbamazepine 200 mg Tablet 400 mg PO 0700,1900 RF: 0 gabapentin 300 mg Capsule 1,200 mg PO 0700,1400 RF: 0 gabapentin 300 mg Capsule 900 mg PO 1900 RF: 0 baclofen 1 dose PO PRN PRN (Reason: if intrathecal pump fails) RF: 0 venlafaxine [Effexor XR] 75 mg capsule,extended release 24hr 75 mg PO 0700,1400,1900 RF: 0 atorvastatin [Lipitor] 10 mg tablet 10 mg PO 1900 RF: 0 liothyronine [Cytomel] 5 mcg tablet 5 mcg PO 0700,1900 RF: 0 amitriptyline 10 mg tablet 10 mg PO 1900 RF: 0 [BACLOFEN INTRATHECAL] 1 dose continuous intrathecal infusion DAILY RF: 0 cholecalciferol (vitamin D3) [Vitamin D3] 1,000 unit Capsule 1,000 unit PO 1400 RF: 0 Follow up/Referrals: Bala Alberts MD [Primary Care Provider] - 2 Weeks Provider Discharge Instructions Diet: Diet as Tolerated Discharge Data Primary Care Provider: Bala Alberts Attending Provider: Bala Alberts Admit Date/Time: 03/01/19 18:57
== END 2019-03-02 18:00 | disposition home or self-care (01) ==
LOC: ED 18:55 → AC 18:59
PROVIDERS: Admitting Provider Family Medicine; Emergency Provider Emergency Medicine; PCP Internal Medicine; Visit Provider Internal Medicine
DX: T40.2X1A Poisoning by other opioids, accidental (unintentional), initial encounter (principal); G92 Toxic encephalopathy; G35 Multiple sclerosis; G82.20 Paraplegia, unspecified; R40.2352 Coma scale, best motor response, localizes pain, at arrival to emergency department; R40.2122 Coma scale, eyes open, to pain, at arrival to emergency department; R40.2242 Coma scale, best verbal response, confused conversation, at arrival to emergency department; R09.02 Hypoxemia; G50.0 Trigeminal neuralgia; S06.5X9D Traumatic subdural hemorrhage with loss of consciousness of unspecified duration, subsequent encounter; Z99.3 Dependence on wheelchair; Y92.9 Unspecified place or not applicable
CPT/HCPCS: 36415; 36591; 36600; 70450; 71045; 71275; 74177; 80053; 80305; 80320; 80329; 81001; 81003; 82140; 82550; 82553; 82805; 83605; 83880; 84145; 84484; 85025; 87040; 87086; 93005; 94762; 96361; 96374; 99217; 99220; 99284; 99285; G0378; G0480; J2310; Q9967

== ENCOUNTER → 2019-05-20 16:08 | Outpatient (CLI) | payer MEDICARE, OTHER, SELFPAY ==
[2019-03-01 20:08] VITALS: BMI 30.3
[2019-05-20 17:19] LABS: Add Manual Diff / Slide Review NO; Basophils Absolute Auto 0 /uL (0-100); Basophils Percent Auto 0.1 % (0-2); Eosinophils Absolute Auto 0 /uL (0-450); Hematocrit 45.5 % (41-53); Hemoglobin 15.2 g/dL (13.5-17.5); Lymphocytes Absolute Auto 400 /uL (1100-4500); Lymphocytes Percent Auto 11.1 % (25-40); Mean Corpuscular HGB Conc 33.5 % (30-36); Mean Corpuscular Hemoglobin 32.2 PG (26-34); Mean Corpuscular Volume 96.2 fL (80-100); Monocytes Absolute Auto 600 /uL (0-900); Monocytes Percent Auto 16.6 % (3-14); Neutrophils Absolute Auto 2400 /uL (1500-7000); Neutrophils Percent Auto 72.2 % (50-75); Platelet Count 208 X10^3/uL (150-400); Red Blood Cell Count 4.73 X10^6/uL (4.5-5.9); Red Cell Distribution Width 15.3 % (11.6-14.8); White Blood Cell Count 3.4 X10^3/uL (4.5-11.0)
[2019-05-20 17:34] LABS: Alanine Aminotransferase 37 IU/L (<50); Albumin 4.6 g/dL (3.5-5.0); Albumin Globulin Ratio 1.5 (1.0-2.8); Alkaline Phosphatase 140 U/L (38-126); Aspartate Aminotransferase 38 IU/L (17-59); Bilirubin Total 0.5 mg/dL (0.2-1.3); Bilirubin Unconjugated 0.3 mg/dL (0.0-1.1); Blood Urea Nitrogen 15 mg/dL (9-20); Calcium 9.4 mg/dL (8.4-10.2); Carbon Dioxide 31 mmol/L (22-32); Chloride 101 mmol/L (98-107); Estimated Glomerular Filt Rate > 60.0 mL/min (>60); Globulin 3.1 g/dL (1.7-4.1); Glucose 89 mg/dL (80-110); HEMOLYSIS < 15 (0-50); Potassium 4.2 mmol/L (3.4-5.1); Sodium 141 mmol/L (137-145); Total Protein 7.7 g/dL (6.3-8.2)
[2019-05-20 19:23] LABS: Appearance Urine UA CLOUDY; Bilirubin Urine UA NEGATIVE (NEGATIVE); Color Urine UA YELLOW; Glucose Urine UA NEGATIVE (Negative); Ketones Urine UA NEGATIVE (NEGATIVE); Leukocyte Esterase Urine UA 1+ (NEGATIVE); Nitrite Urine UA NEGATIVE (Negative); Occult Blood Urine UA NEGATIVE (Negative); Protein Urine UA NEGATIVE (Negative); Specific Gravity Urine UA 1.025 (1.000-1.035); Urobilinogen Urine UA 0.2 E.U./dL (0.2); pH Urine UA 5.5 (4.5-8.0)
[2019-05-20 20:14] LABS: RBC Urine 0-1/HPF (0-5/HPF); Squamous Epithelial Cell Urine 0-1 /HPF (0-5/HPF); WBC Urine 5-10/HPF (0-5/HPF)
[2019-05-20 20:15] LABS: Amorphous Sediment Urine 3+; Bacteria Urine Few (2-10); Culture Indicated Urine Specimen Cultured
== END ==
PROVIDERS: Family Provider Internal Medicine; PCP Internal Medicine; Visit Provider Nurse Practitioner Adult Health
DX: G35 Multiple sclerosis (principal); R30.0 Dysuria
CPT/HCPCS: 36415; 80053; 80076; 81003; 81015; 85025; 87077; 87086; 87185; 87186

== ENCOUNTER → 2020-03-02 15:45 | Outpatient (CLI) | payer MEDICARE, OTHER, SELFPAY ==
[2019-03-01 20:08] VITALS: BMI 30.3
[2020-03-02 17:02] LABS: Add Manual Diff / Slide Review NO; Basophils Absolute Auto 0 /uL (0-100); Basophils Percent Auto 0.2 % (0-2); Eosinophils Absolute Auto 0 /uL (0-450); Hematocrit 44.7 % (41-53); Lymphocytes Absolute Auto 300 /uL (1100-4500); Lymphocytes Percent Auto 10.2 % (25-40); Mean Corpuscular HGB Conc 33.5 % (30-36); Mean Corpuscular Hemoglobin 32.2 PG (26-34); Mean Corpuscular Volume 96.2 fL (80-100); Monocytes Absolute Auto 500 /uL (0-900); Monocytes Percent Auto 16.1 % (3-14); Neutrophils Absolute Auto 2200 /uL (1500-7000); Neutrophils Percent Auto 73.5 % (50-75); Platelet Count 233 X10^3/uL (150-400); Red Blood Cell Count 4.65 X10^6/uL (4.5-5.9); Red Cell Distribution Width 15.6 % (11.6-14.8)
[2020-03-02 17:25] LABS: Alanine Aminotransferase 35 IU/L (<50); Albumin 4.2 g/dL (3.5-5.0); Albumin Globulin Ratio 1.4 (1.0-2.8); Alkaline Phosphatase 115 U/L (38-126); Aspartate Aminotransferase 33 IU/L (17-59); BUN Creatinine Ratio 20.5 (6-22); Bilirubin Total 0.5 mg/dL (0.2-1.3); Blood Urea Nitrogen 9 mg/dL (9-20); Calcium 9.4 mg/dL (8.4-10.2); Carbon Dioxide 28 mmol/L (22-32); Chloride 102 mmol/L (98-107); Estimated Glomerular Filt Rate > 60.0 mL/min (>60); Globulin 2.9 g/dL (1.7-4.1); Glucose 91 mg/dL (80-110); HEMOLYSIS < 15 (0-50); Potassium 4.3 mmol/L (3.4-5.1); Sodium 138 mmol/L (137-145); Total Protein 7.1 g/dL (6.3-8.2)
[2020-03-02 18:27] LABS: Thyroid Stimulating Hormone < 0.015 uIU/mL (0.47-4.68)
== END ==
PROVIDERS: Family Provider Internal Medicine; PCP Internal Medicine; Referring Provider Internal Medicine; Visit Provider Internal Medicine
DX: E03.9 Hypothyroidism, unspecified (principal); G50.0 Trigeminal neuralgia; I10 Essential (primary) hypertension
CPT/HCPCS: 36415; 80053; 84439; 84443; 85025

== ENCOUNTER → 2020-07-15 16:06 | Outpatient (CLI) | payer MEDICARE, OTHER, SELFPAY ==
[2019-03-01 20:08] VITALS: BMI 30.3
[2020-07-15 16:30] LABS: RBC Urine None Seen (0-5/HPF)
[2020-07-15 18:07] LABS: Appearance Urine UA CLOUDY; Bilirubin Urine UA NEGATIVE (NEGATIVE); Color Urine UA YELLOW; Glucose Urine UA NEGATIVE (Negative); Ketones Urine UA NEGATIVE (NEGATIVE); Leukocyte Esterase Urine UA 2+ (NEGATIVE); Nitrite Urine UA POSITIVE (Negative); Occult Blood Urine UA NEGATIVE (Negative); Protein Urine UA NEGATIVE (Negative); Specific Gravity Urine UA 1.015 (1.000-1.035); Urobilinogen Urine UA 0.2 E.U./dL (0.2); pH Urine UA 6.5 (4.5-8.0)
[2020-07-15 18:27] LABS: Bacteria Urine Many (>30); Culture Indicated Urine Specimen Cultured; WBC Urine 5-10/HPF (0-5/HPF)
== END ==
PROVIDERS: Family Provider Internal Medicine; PCP Internal Medicine; Referring Provider Internal Medicine; Visit Provider Internal Medicine
DX: R30.0 Dysuria (principal)
CPT/HCPCS: 81001; 87086

== ENCOUNTER → 2020-08-11 14:23 | Outpatient (CLI) | payer MEDICARE, OTHER, SELFPAY ==
[2019-03-01 20:08] VITALS: BMI 30.3
== END ==
PROVIDERS: Family Provider Internal Medicine; PCP Internal Medicine; Referring Provider Internal Medicine; Visit Provider Internal Medicine
DX: N39.0 Urinary tract infection, site not specified (principal)
CPT/HCPCS: 87086

== ENCOUNTER 2020-08-28 00:37 | Emergency (ER) | payer MEDICARE, OTHER, SELFPAY ==
[2019-03-01 20:08] VITALS: BMI 30.3
[2020-08-28] VITALS (26 sets, daily range): BP systolic 108–179; BP diastolic 57–81; PULSE 54–69; RESP 10–27; TEMP 36.4; O2SAT 91–99; BMI 25.5
--- NOTE | 2020-08-28 01:11 | DI.CT.S_ITS ---
PROCEDURE: CT HEAD/BRAIN WO CON INDICATIONS: ? increased weakness L leg, hx MS, hx of subdural TECHNIQUE: Noncontrast 4.5 mm thick angled axial sections acquired from the foramen magnum to the vertex, with coronal and sagittal reformats. For radiation dose reduction, the following was used: automated exposure control, adjustment of mA and/or kV according to patient size. COMPARISON: [facility], CR, XR CHEST 1V, 08/28/2020, 1:19. [facility], CT, CT HEAD/BRAIN WO CON, 03/01/2019, 16:07. FINDINGS: Image quality: Excellent. CSF spaces: Basal cisterns are patent. No extra-axial fluid collections. The ventricles are symmetric in size and shape. Brain: Right temporal lobe encephalomalacia is seen, as before. No intracranial bleeds or masses. There is cerebral volume loss for age, with resultant ventricular and sulcal prominence. There are periventricular and deep white matter chronic small vessel ischemic changes. There is intracranial internal carotid artery atherosclerosis. Skull and face: Right craniotomy changes are seen. Stable hyperdensity is seen just deep to the craniotomy change, which is attributed to postsurgical change. Calvarium and visualized facial bones appear intact, without suspicious lesions. Sinuses: Visualized sinuses and mastoids are clear. IMPRESSION: No acute intracranial hemorrhage is seen. Hyperdense material can be seen deep to the craniotomy change, which is stable compared to the prior. Prior right craniotomy changes. Stable right temporal lobe encephalomalacia. Note: This case (including differences between this final report and the preliminary report) discussed by telephone with Dr. Mcclellan at 7:04 a.m. [place] time on August 28, 2020. Dictated by: Bubba Lozada M.D. on 08/28/2020 at 7:01 Approved by: Bubba Lozada M.D. on 08/28/2020 at 7:06
--- NOTE | 2020-08-28 01:11 | ED_ITS ---
HPI - Weakness General Chief complaint: Weakness Stated complaint: Left side weakness Time Seen by Provider: 08/28/20 00:53 Source: patient, family () and EMS Mode of arrival: EMS History of Present Illness HPI Narrative: This is a 70-year-old male with history of MS who comes to the emergency department with increased left-sided weakness according to patient's . Patient can tell me his name, he is able to give some details but is repetitive at times. noticed new weakness in his left upper extremity in the last 24 hours as well as some cognitive decrease. She realized he has been repetitive, he also has had decreased hearing which she states he normally has some mild but is significantly worse last 24 hours. He has some difficulty using his upper extremity on the left side but it is his stronger side in comparison to his right and she has noticed that he has had trouble using spoons or forks to eat food as well as get the food or when he is drinking fluids he is missing his mouth which is atypical. He does not have use of his lower extremities. He is not currently on any anticoagulants although she states that he did receive an aspirin today for headache, but does not take any anticoagulants regularly. He has had a recent UTI and was completing a course of amoxicillin. He has had some increased urinary incontinence over the last several weeks. Patient does have a history of subdural hematoma in 2013 while he was taking Coumadin. Patient has not had any recent trauma or falls. Related Data Home Medications Medication Instructions Recorded Confirmed Gilenya 0.5 mg PO 0700 #0 04/25/16 07/14/20 [BACLOFEN INTRATHECAL] 1 dose CONTINUOUS INTRATHECAL 03/01/19 07/14/20 INFUSION DAILY cholecalciferol (vitamin D3) 25 2,000 unit PO BID cap 06/15/19 07/14/20 mcg (1,000 unit) capsule d-mannose 500 ea PO BID g 07/14/20 07/14/20 Previous Rx's Medication Instructions Recorded lidocaine 5 % topical patch 1 patch TOP DAILY #30 each 07/07/19 baclofen 10 mg tablet 10 mg PO TID PRN #30 tab 10/14/19 oxycodone 20 mg tablet 10 - 40 mg PO Q4H PRN #540 tab 01/21/20 amitriptyline 10 mg tablet See Rx Instructions .ROUTE 03/17/20 .COMPLEX #90 tablet carbamazepine 200 mg tablet 600 mg PO 0700,1900 #360 tab 03/17/20 levothyroxine 150 mcg tablet 150 mcg PO 0700 #90 tab 03/17/20 liothyronine 5 mcg tablet 5 mcg PO 0700,1900 #180 tab 03/17/20 venlafaxine 75 mg capsule,extended 75 mg PO TID #270 cap 04/07/20 release 24 hr methylphenidate HCl 5 mg tablet 5 mg PO 0700 #30 tab 07/07/20 amlodipine 10 mg tablet 10 mg PO DAILY #90 tab 07/14/20 atorvastatin 10 mg tablet 10 mg PO DAILY #90 tab 07/14/20 gabapentin 300 mg capsule See Rx Instructions .ROUTE 07/14/20 .COMPLEX #990 cap amoxicillin 250 mg capsule 250 mg PO TID #30 cap 08/12/20 Allergies Allergy/AdvReac Type Severity Reaction Status Date / Time ciprofloxacin [CIPROFLOXACIN] Allergy Intermediate diarrhea Verified 08/11/19 15:43 (AFTER ONE TAB?!) codeine [CODEINE] AdvReac Mild MAKES HIM Verified 08/11/19 15:43 ILL morphine [MORPHINE] AdvReac Unknown NAUSEA / Verified 08/11/19 15:43 VOMITING Review of Systems Review of Systems ROS Unobtainable: All systems reviewed & are unremarkable except as noted in HPI and below Patient History Medical History Abnormal liver function tests (05/19/15) Acquired hypothyroidism (07/14/13) Adenomatous polyp of colon (03/14/11) Elevated PSA (~12/2017) Essential hypertension (~06/15/19) Family history of coronary arteriosclerosis [place] filter in place (05/22/13) 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) Mixed hyperlipidemia (03/14/11) Multiple sclerosis (04/22/15) Paraplegia Pulmonary embolism Trigeminal neuralgia (03/14/11) Venous stasis (03/14/11) Vitamin B 12 deficiency Surgical History S/P craniotomy S/P insertion of intrathecal pump Status post gamma knife treatment (04/06/20) Family History Unknown Family history of coronary arteriosclerosis Social History household members: spouse and caregiver Smoking Status: Former smoker alcohol intake: former Smoking Status: Former smoker Exam Narrative Exam Narrative: GEN: Obese, pale male, alert and oriented to self, patient is aware he is at the hospital but does seem confused about some of the particulars of his current situation and able to answer others appropriately, patient appears to be in mild distress. HEENT: Atraumatic, pupils are equal round reactive to light, extraocular movements are intact, nares are clear, TMs are clear with no fluid, there is no conjunctival pallor. Throat is clear without any exudates, erythema, tonsillar enlargement or uvular deviation, no facial droop appreciated. HEART: Regular rate and rhythm without murmur, clicks, rubs. Pulses are equal in upper extremities LUNGS:Lungs clear to auscultation, no wheezes, rales, crackles, chest moves symmetrically, no tachypnea. ABD:bowel sounds normal, soft the exception of scar tissue that is midline lower abdomen, non-tender, no guarding, rebound, rigidity, no masses noted, no hepatosplenomegaly :No CVA tenderness MSCL: Non-tender, patient does not have movement or use of his bilateral lower extremities no deformity or changes appreciated. Patient's upper extremities he has some movement on the left, minimal opening closing of the hand, patient has minimal movement on the right and does not open or close his hand for me. NEURO:CN 2-12 intact, patient is unable to perform heel-nunes. SKIN: No rash, erythema or petechiae appreciated. Initial Vital Signs Initial Vital Signs: Vital Signs Pulse Rate 68 08/28/20 00:54 Blood Pressure 162/76 H 08/28/20 00:54 Pulse Oximetry 95 08/28/20 00:54 Scores GCS Fausto coma scale eye opening: Spontaneous [place] coma scale verbal response: Confused [place] coma scale motor response: Obey commands Fausto coma scale total score: 14 Course Orders Ordered: ED Orders 08/28/20 01:11 CT head/brain wo con Stat XR chest 1V Stat Urinalysis and Microscopic Stat Urine Drug Screen, Rapid Stat EKG-12 Lead Stat 08/28/20 02:00 Complete Blood Count AUTO DIFF Stat Comprehensive Metabolic Panel Stat Partial Thromboplastin Time Stat Prothrombin Time INR Stat Thyroid Stimulating Hormone Stat Troponin & CK Cardiac Panel Stat 08/28/20 04:44 COVID19 Stat Sodium Chloride (Normal Saline 0.9%) 1,000 mls @ 150 mls/hr IV CONT TSERING Last Admin: 08/28/20 02:14 Dose: 150 mls/hr Documented by: ANNABELLE Discontinued Medications Labetalol HCl (Labetalol 20 Mg/4 Ml Syringe) 5 mg IV NOW ONE Stop: 08/28/20 06:48 Last Admin: 08/28/20 06:51 Dose: 5 mg Documented by: Reevaluation(s) Reevaluation #1: Patient and updated at bedside. Patient is understandably upset with his current diagnosis but has not had changes in mentation since arrival. Time: 04:44 Consultations Consultation #1: Dr. Avelar at [facility] accepts for transfer to [facility] ER. Time: 04:37 Vital Signs Vital signs: Vital Signs - 8 hr 08/28/20 00:54 08/28/20 01:00 08/28/20 01:01 Temperature Pulse Rate 68 69 68 Respiratory Rate Blood Pressure 162/76 H 140/70 Pulse Oximetry 95 95 96 08/28/20 01:12 08/28/20 01:30 08/28/20 02:01 Temperature 97.5 F L Pulse Rate 68 65 64 Respiratory Rate 17 18 Blood Pressure 162/76 H 151/68 H 126/62 Pulse Oximetry 95 95 93 08/28/20 02:31 08/28/20 02:46 08/28/20 03:00 Temperature Pulse Rate 63 63 59 L Respiratory Rate 16 12 Blood Pressure 164/73 H 158/72 H 140/69 Pulse Oximetry 97 98 99 08/28/20 03:30 08/28/20 04:00 08/28/20 04:30 Temperature Pulse Rate 57 L 55 L 56 L Respiratory Rate 12 10 L 10 L Blood Pressure 119/62 108/57 L 113/62 Pulse Oximetry 98 98 99 08/28/20 05:01 08/28/20 05:31 08/28/20 06:00 Temperature Pulse Rate 67 68 66 Respiratory Rate 20 22 27 H Blood Pressure 162/74 H 177/81 H 179/78 H Pulse Oximetry 91 95 93 08/28/20 06:31 Temperature Pulse Rate 65 Respiratory Rate 18 Blood Pressure 161/67 H Pulse Oximetry 94 MDM - Weakness Lab Data Attestation: I reviewed the patient's lab results. Result diagrams: 08/28/20 02:00 08/28/20 02:00 Labs: Lab Results 08/28/20 08/28/20 08/28/20 Range/Units 02:00 02:00 02:00 WBC 4.2 L (4.5-11.0) X10^3/uL RBC 3.79 L (4.5-5.9) X10^6/uL Hgb 12.1 L (13.5-17.5) g/dL Hct 36.9 L (41-53) % MCV 97.3 (80-100) fL MCH 31.9 (26-34) PG MCHC 32.8 (30-36) % RDW 15.3 H (11.6-14.8) % Plt Count 202 (150-400) X10^3/uL Neut % (Auto) 74.4 (50-75) % Lymph % (Auto) 6.2 L (25-40) % [place] % (Auto) 19.2 H (3-14) % Eos % (Auto) 0.0 L (2-4) % Baso % (Auto) 0.2 (0-2) % Neut # (Auto) 3200 (0997-4320) /uL Lymph # (Auto) 300 L (5048-4145) /uL [place] # (Auto) 800 (0-900) /uL Eos # (Auto) 0 (0-450) /uL Baso # (Auto) 0 (0-100) /uL PT 10.3 (10.1-12.7) SECONDS INR 0.9 (0.9-1.3) APTT 36 (26.4-36.2) SECONDS Sodium 142 (137-145) mmol/L Potassium 3.1 L (3.4-5.1) mmol/L Chloride 105 (98-107) mmol/L Carbon Dioxide 35 H (22-32) mmol/L BUN 28 H (9-20) mg/dL Creatinine 1.25 (0.66-1.25) mg/dL Estimated GFR 57.3 L (>60) mL/min BUN/Creatinine Ratio 22.4 H (6-22) Glucose 95 (80-110) mg/dL Calcium 8.3 L (8.4-10.2) mg/dL Total Bilirubin 0.3 (0.2-1.3) mg/dL AST 51 (17-59) IU/L ALT 49 (<50) IU/L Alkaline Phosphatase 133 H (38-126) U/L Total Creatine Kinase 76 (55-170) U/L CK-MB (CK-2) TNP CK-MB (CK-2) Rel Index TNP Troponin I < 0.012 (0.01-0.034) ng/mL Total Protein 6.3 (6.3-8.2) g/dL Albumin 3.6 (3.5-5.0) g/dL Globulin 2.7 (1.7-4.1) g/dL Albumin/Globulin Ratio 1.3 (1.0-2.8) TSH (0.47-4.68) uIU/mL SARS-CoV-2 (PCR) (Negative) 08/28/20 08/28/20 Range/Units 02:00 04:44 WBC (4.5-11.0) X10^3/uL RBC (4.5-5.9) X10^6/uL Hgb (13.5-17.5) g/dL Hct (41-53) % MCV (80-100) fL MCH (26-34) PG MCHC (30-36) % RDW (11.6-14.8) % Plt Count (150-400) X10^3/uL Neut % (Auto) (50-75) % Lymph % (Auto) (25-40) % [place] % (Auto) (3-14) % Eos % (Auto) (2-4) % Baso % (Auto) (0-2) % Neut # (Auto) (1065-3174) /uL Lymph # (Auto) (6741-3219) /uL [place] # (Auto) (0-900) /uL Eos # (Auto) (0-450) /uL Baso # (Auto) (0-100) /uL PT (10.1-12.7) SECONDS INR (0.9-1.3) APTT (26.4-36.2) SECONDS Sodium (137-145) mmol/L Potassium (3.4-5.1) mmol/L Chloride (98-107) mmol/L Carbon Dioxide (22-32) mmol/L BUN (9-20) mg/dL Creatinine (0.66-1.25) mg/dL Estimated GFR (>60) mL/min BUN/Creatinine Ratio (6-22) Glucose (80-110) mg/dL Calcium (8.4-10.2) mg/dL Total Bilirubin (0.2-1.3) mg/dL AST (17-59) IU/L ALT (<50) IU/L Alkaline Phosphatase (38-126) U/L Total Creatine Kinase (55-170) U/L CK-MB (CK-2) CK-MB (CK-2) Rel Index Troponin I (0.01-0.034) ng/mL Total Protein (6.3-8.2) g/dL Albumin (3.5-5.0) g/dL Globulin (1.7-4.1) g/dL Albumin/Globulin Ratio (1.0-2.8) TSH < 0.015 L (0.47-4.68) uIU/mL SARS-CoV-2 (PCR) Negative (Negative) Imaging Data CT scan - head: Radiologist Impression: Small right acute subdural hematoma without mass effect that is 5 mm in thickness with previous right craniotomy. Mild atrophy with nonspecific white matter changes. No hydrocephalus or mass effect. Encephalomalacia in the right temporal lobe. Chest x-ray: Radiologist Impression: Small area of atelectasis or mild consolidation medial left lung. ECG Data Attestation: I personally reviewed and interpreted this ECG as follows: Prior ECG tracings: available for review Interpretation: Sinus rhythm incomplete right bundle branch. Nonspecific T-wave changes. Ventricular rate of 66 P are 196 QRS of 106 and QTC of 448. Patient has prior EKG from 03/22/2016 which appears similar in 3 and AVF but different in lateral leads. MDM Narrative Medical decision making narrative: This is a 70-year-old male who comes in with new weakness in his left upper extremity appreciated by his in the last 24 hours. She is also appreciated some cognitive changes with repetitive answers, decrease in hearing as well as some mild confusion. Patient has a prior history of spontaneous subdural bleed while on Coumadin. He is no longer regularly anticoagulated. He did receive an aspirin today. Patient's head CT does show a small right subdural and although patient's neurologic exam is difficult to fully obtain according to his he does have a significant change in his extremity use. She states that they would pursue aggressive interventions including craniotomy if this was felt to be appropriate. Spoke with Dr. Avelar the accepting physician at [facility] who accepts for transfer. Initially plan to airlift but secondary to weather and safety changed to ALS ground. Patient pressure has been moving upwards to 160's range. Given dose of Labetolol 5mg IV and recheck BP. Patient has not had any major changes otherwise in department. Signed out to Dr. Mcclellan while awaiting transport. Critical Care Time Critical Care Time Critical Care Time: Yes Total Critical Care Time: 90 Attestation: The high probability of a clinically significant, sudden or life threatening deterioration of the [neurologic, cardiac] system(s) required my full and direct attention, intervention and personal management. The aggregate critical care time was [90] minutes. This time is in addition to time spent performing reported procedures but includes the following: [x] Data Review and interpretation [x] Patient assessment and monitoring of vital signs [x] Documentation [x] Medication orders and management Discharge Plan Departure Patient Disposition: [facility] Clinical Impression: Acute subdural hematoma, Acute left-sided weakness Prescriptions: No Action Gilenya 0.5 MG capsule 0.5 mg PO 0700 Qty: 0 RF: 0 lidocaine 5 % adhesive patch,medicated 1 patch TOP DAILY Qty: 30 RF: 0 baclofen 10 mg tablet 10 mg PO TID PRN (Reason: muscle spasm) Qty: 30 RF: 0 venlafaxine 75 mg capsule,extended release 24hr 75 mg PO TID Qty: 270 RF: 3 methylphenidate HCl 5 mg tablet 5 mg PO 0700 Qty: 30 RF: 0 amoxicillin 250 mg capsule 250 mg PO TID Qty: 30 RF: 0 levothyroxine 150 mcg tablet 150 mcg PO 0700 Qty: 90 RF: 3 carbamazepine 200 mg tablet 600 mg PO 0700,1900 Qty: 360 RF: 3 liothyronine [Cytomel] 5 mcg tablet 5 mcg PO 0700,1900 Qty: 180 RF: 3 amitriptyline 10 mg tablet See Rx Instructions .ROUTE .COMPLEX Qty: 90 RF: 3 oxycodone 20 mg tablet 10 - 40 mg PO Q4H PRN (Reason: pain) Qty: 540 RF: 0 atorvastatin [Lipitor] 10 mg tablet 10 mg PO DAILY Qty: 90 RF: 3 gabapentin 300 mg capsule See Rx Instructions .ROUTE .COMPLEX Qty: 990 RF: 3 amlodipine 10 mg tablet 10 mg PO DAILY Qty: 90 RF: 3 d-mannose Powder 500 ea PO BID RF: 0 [BACLOFEN INTRATHECAL] 1 dose continuous intrathecal infusion DAILY RF: 0 cholecalciferol (vitamin D3) [Vitamin D3] 1,000 unit capsule 2,000 unit PO BID RF: 0 Referrals: Bala Alberts MD [Primary Care Provider] -
--- NOTE | 2020-08-28 01:11 | DI.RAD.S_ITS ---
PROCEDURE: XR CHEST 1V INDICATIONS: weakness TECHNIQUE: One view of the chest was acquired. COMPARISON: [facility], CT, CT ANGIO CHEST PE PROTOCOL, 03/01/2019, 17:22. [facility], CT, CT HEAD/BRAIN WO CON, 08/28/2020, 2:30. [facility], CR, XR CHEST 1V, 03/01/2019, 14:58. FINDINGS: Surgical changes and devices: None. Lungs and pleura: An incomplete inspiratory result is noted, causing a crowded appearance to the lung markings. Minimal streaky consolidation can be seen at the left lung base. No pneumothorax or significant pleural effusions are seen. Elevation of the right hemidiaphragm can be seen. Mediastinum: Mediastinal contours appear normal. Heart size is normal. Bones and chest wall: No suspicious bony lesions. Mild dextroconvex scoliotic curvature is seen. Age-appropriate bony degenerative changes are seen. Overlying soft tissues appear unremarkable. IMPRESSION: Presumed atelectasis is seen at the left lung base. Differential diagnosis includes minimal/early infiltrate, yet this is considered to be less likely. Note: No significant discrepancy from the preliminary report. Dictated by: Bubba Lozada M.D. on 08/28/2020 at 7:11 Approved by: Bubba Lozada M.D. on 08/28/2020 at 7:12
[2020-08-28 02:07] LABS: Add Manual Diff / Slide Review NO; Basophils Absolute Auto 0 /uL (0-100); Basophils Percent Auto 0.2 % (0-2); Eosinophils Absolute Auto 0 /uL (0-450); Hematocrit 36.9 % (41-53); Hemoglobin 12.1 g/dL (13.5-17.5); Lymphocytes Absolute Auto 300 /uL (1100-4500); Lymphocytes Percent Auto 6.2 % (25-40); Mean Corpuscular HGB Conc 32.8 % (30-36); Mean Corpuscular Hemoglobin 31.9 PG (26-34); Mean Corpuscular Volume 97.3 fL (80-100); Monocytes Absolute Auto 800 /uL (0-900); Monocytes Percent Auto 19.2 % (3-14); Neutrophils Absolute Auto 3200 /uL (1500-7000); Neutrophils Percent Auto 74.4 % (50-75); Platelet Count 202 X10^3/uL (150-400); Red Blood Cell Count 3.79 X10^6/uL (4.5-5.9); Red Cell Distribution Width 15.3 % (11.6-14.8); White Blood Cell Count 4.2 X10^3/uL (4.5-11.0)
[2020-08-28] MEDS: SODIUM CHLORIDE 0.9% 1,000 ML 150 ML IV (02:14)
[2020-08-28 02:15] LABS: INR 0.9 (0.9-1.3); Prothrombin Time 10.3 SECONDS (10.1-12.7)
[2020-08-28 02:18] LABS: PTT Partial Thromboplastin Tim 36 SECONDS (26.4-36.2)
[2020-08-28 02:19] LABS: Alanine Aminotransferase 49 IU/L (<50); Albumin 3.6 g/dL (3.5-5.0); Albumin Globulin Ratio 1.3 (1.0-2.8); Alkaline Phosphatase 133 U/L (38-126); Aspartate Aminotransferase 51 IU/L (17-59); BUN Creatinine Ratio 22.4 (6-22); Bilirubin Total 0.3 mg/dL (0.2-1.3); Blood Urea Nitrogen 28 mg/dL (9-20); Calcium 8.3 mg/dL (8.4-10.2); Carbon Dioxide 35 mmol/L (22-32); Chloride 105 mmol/L (98-107); Creatine Kinase 76 U/L (55-170); Estimated Glomerular Filt Rate 57.3 mL/min (>60); Globulin 2.7 g/dL (1.7-4.1); Glucose 95 mg/dL (80-110); HEMOLYSIS < 15 (0-50); Potassium 3.1 mmol/L (3.4-5.1); Sodium 142 mmol/L (137-145); Total Protein 6.3 g/dL (6.3-8.2)
[2020-08-28 02:30] LABS: Troponin I < 0.012 ng/mL (0.01-0.034)
[2020-08-28 02:55] LABS: Thyroid Stimulating Hormone < 0.015 uIU/mL (0.47-4.68)
[2020-08-28 05:12] LABS: COVID19 -Nasal RAPID Negative (Negative)
[2020-08-28] MEDS: LABETALOL 20 MG/4 ML SYRINGE 5 MG IV (06:51)
--- NOTE | 2020-08-28 07:23 | PC.NURSE ---
Patients went home to get his specific medication Gilenya, and walked in the room and gave him his morning meds with some water on her own. This morning at 0700 he took: 600mg carbamazepine, Gilenya 0.5mg, gabapentin 900mg, levothyroxine 150mcg, liothyronine 5mcg, venlafaxine 75mg
== END 2020-08-28 14:04 | disposition short-term general hospital (02) ==
PROVIDERS: Emergency Provider Emergency Medicine; Family Provider Internal Medicine; PCP Internal Medicine
DX: I62.01 Nontraumatic acute subdural hemorrhage (principal); R53.1 Weakness; G35 Multiple sclerosis; R32 Unspecified urinary incontinence; E66.9 Obesity, unspecified; Z68.25 Body mass index [BMI] 25.0-25.9, adult; Z20.822 Contact with and (suspected) exposure to COVID-19
CPT/HCPCS: 36415; 70450; 71045; 80053; 82550; 84443; 84484; 85025; 85610; 85730; 87635; 93005; 93010; 96361; 96374; 99283; 99291; 99292; C9803

== ENCOUNTER → 2020-10-03 11:46 | Outpatient (CLI) | payer MEDICARE, OTHER, SELFPAY ==
[2020-10-03 10:50] VITALS: BMI 30.3
== END ==
PROVIDERS: Family Provider Internal Medicine; PCP Internal Medicine; Visit Provider Specialist
DX: N39.0 Urinary tract infection, site not specified (principal); R33.9 Retention of urine, unspecified
CPT/HCPCS: 51702; 51798; 87077; 87086; 87186

== ENCOUNTER → 2020-10-24 14:45 | Outpatient (ROUT) | payer MEDICARE, OTHER, SELFPAY ==
[2020-10-03 10:50] VITALS: BMI 30.3
[2020-10-24 14:47] LABS: Bacteria Urine None Seen; RBC Urine None Seen (0-5/HPF)
[2020-10-24 15:02] LABS: Appearance Urine UA CLEAR; Bilirubin Urine UA NEGATIVE (NEGATIVE); Color Urine UA YELLOW; Glucose Urine UA NEGATIVE (Negative); Ketones Urine UA NEGATIVE (NEGATIVE); Leukocyte Esterase Urine UA 2+ (NEGATIVE); Nitrite Urine UA NEGATIVE (Negative); Occult Blood Urine UA 3+ (Negative); Protein Urine UA NEGATIVE (Negative); Specific Gravity Urine UA <=1.005 (1.000-1.035); Urobilinogen Urine UA 0.2 E.U./dL (0.2); pH Urine UA 6.5 (4.5-8.0)
[2020-10-24 15:12] LABS: Culture Indicated Urine Cult Not Indicated; Squamous Epithelial Cell Urine 5-10 /HPF (0-5/HPF); WBC Urine 5-10/HPF (0-5/HPF)
== END ==
PROVIDERS: Family Provider Internal Medicine; PCP Internal Medicine; Visit Provider Specialist
DX: N39.0 Urinary tract infection, site not specified (principal)
CPT/HCPCS: 81001

== ENCOUNTER → 2020-10-26 16:19 | Outpatient (CLI) | payer MEDICARE, OTHER, SELFPAY ==
[2020-10-03 10:50] VITALS: BMI 30.3
[2020-10-26 17:22] LABS: BUN Creatinine Ratio 11.9 (6-22); Blood Urea Nitrogen 5 mg/dL (9-20); Calcium 7.3 mg/dL (8.4-10.2); Carbon Dioxide 28 mmol/L (22-32); Chloride 101 mmol/L (98-107); Estimated Glomerular Filt Rate > 60.0 mL/min (>60); Glucose 84 mg/dL (80-110); HEMOLYSIS < 15 (0-50); Sodium 138 mmol/L (137-145)
[2020-10-26 17:37] LABS: Potassium 5.4 mmol/L (3.4-5.1)
[2020-10-26 17:58] LABS: Free T4, Direct Thyroxine 1.27 ng/dL (0.78-2.19)
[2020-10-26 18:16] LABS: Thyroid Stimulating Hormone < 0.015 uIU/mL (0.47-4.68)
== END ==
PROVIDERS: Family Provider Internal Medicine; PCP Internal Medicine; Referring Provider Internal Medicine; Visit Provider Internal Medicine
DX: E03.9 Hypothyroidism, unspecified (principal); I10 Essential (primary) hypertension
CPT/HCPCS: 36415; 80048; 84439; 84443

== ENCOUNTER → 2020-11-15 15:00 | Outpatient (ROUT) | payer MEDICARE, OTHER, SELFPAY ==
[2020-10-03 10:50] VITALS: BMI 30.3
[2020-11-15 15:02] LABS: Bacteria Urine None Seen; WBC Urine None Seen (0-5/HPF)
[2020-11-15 16:36] LABS: Appearance Urine UA Clear; Color Urine UA PINK; Protein Urine UA 3+ (Negative); pH Urine UA 7.5 (4.5-8.0)
[2020-11-15 16:37] LABS: Bilirubin Urine UA NEGATIVE (NEGATIVE); Glucose Urine UA TRACE g/dL (Negative); Ketones Urine UA NEGATIVE (NEGATIVE); Leukocyte Esterase Urine UA NEGATIVE (NEGATIVE); Nitrite Urine UA NEGATIVE (Negative); Occult Blood Urine UA 3+ (Negative); Urobilinogen Urine UA 0.2 E.U./dL (0.2)
[2020-11-15 16:38] LABS: RBC Urine 30-100/HPF (0-5/HPF)
[2020-11-15 16:39] LABS: Culture Indicated Urine Cult Not Indicated
== END ==
PROVIDERS: Specialist; Family Provider Internal Medicine; PCP Internal Medicine; Visit Provider Internal Medicine
DX: N39.0 Urinary tract infection, site not specified (principal)
CPT/HCPCS: 81001

== ENCOUNTER → 2020-12-06 13:09 | Outpatient (ROUT) | payer MEDICARE, OTHER, SELFPAY ==
[2020-10-03 10:50] VITALS: BMI 30.3
[2020-12-06 13:29] LABS: Appearance Urine UA SL CLOUDY; Bilirubin Urine UA NEGATIVE (NEGATIVE); Color Urine UA YELLOW; Glucose Urine UA NEGATIVE (Negative); Ketones Urine UA NEGATIVE (NEGATIVE); Leukocyte Esterase Urine UA TRACE (NEGATIVE); Nitrite Urine UA NEGATIVE (Negative); Occult Blood Urine UA 3+ (Negative); Protein Urine UA 3+ (Negative); Urobilinogen Urine UA 0.2 E.U./dL (0.2); pH Urine UA 7.5 (4.5-8.0)
[2020-12-06 13:37] LABS: RBC Urine 10-30/HPF (0-5/HPF); WBC Urine 5-10/HPF (0-5/HPF)
[2020-12-06 13:38] LABS: Amorphous Sediment Urine 1+; Bacteria Urine Moderate (10-30); Culture Indicated Urine Specimen Cultured; Mucus Urine 1+ (Negative); Squamous Epithelial Cell Urine 1-5 /HPF (0-5/HPF)
== END ==
PROVIDERS: Family Provider Internal Medicine; PCP Internal Medicine; Visit Provider Specialist
DX: N39.0 Urinary tract infection, site not specified (principal)
CPT/HCPCS: 81001; 87077; 87086; 87186

== ENCOUNTER → 2020-12-26 13:20 | Outpatient (CLI) | payer MEDICARE, OTHER, SELFPAY ==
[2020-10-03 10:50] VITALS: BMI 30.3
[2020-12-26 15:37] LABS: Hematocrit 44.6 % (41-53); Hemoglobin 14.6 g/dL (13.5-17.5); Mean Corpuscular HGB Conc 32.7 % (30-36); Mean Corpuscular Hemoglobin 31.2 PG (26-34); Mean Corpuscular Volume 95.2 fL (80-100); Platelet Count 204 X10^3/uL (150-400); Red Blood Cell Count 4.68 X10^6/uL (4.5-5.9); White Blood Cell Count 3.7 X10^3/uL (4.5-11.0)
[2020-12-26 16:26] LABS: HEMOLYSIS 18 (0-50); Iron 89 ug/dL (49-181)
[2020-12-26 16:31] LABS: Alanine Aminotransferase 52 IU/L (<50); Albumin 4.1 g/dL (3.5-5.0); Albumin Globulin Ratio 1.4 (1.0-2.8); Alkaline Phosphatase 114 U/L (38-126); Aspartate Aminotransferase 49 IU/L (17-59); BUN Creatinine Ratio 22.5 (6-22); Bilirubin Total 0.4 mg/dL (0.2-1.3); Blood Urea Nitrogen 9 mg/dL (9-20); Calcium 9.3 mg/dL (8.4-10.2); Carbon Dioxide 26 mmol/L (22-32); Chloride 102 mmol/L (98-107); Estimated Glomerular Filt Rate > 60.0 mL/min (>60); Glucose 84 mg/dL (80-110); HEMOLYSIS 17 (0-50); Potassium 3.7 mmol/L (3.4-5.1); Sodium 137 mmol/L (137-145); Total Protein 7.1 g/dL (6.3-8.2)
[2020-12-26 16:37] LABS: Percent Iron Saturation 40 % (20-50); Total Iron Binding Capacity 224 ug/dL (261-462); Transferrin 189 mg/dL (206-381)
[2020-12-26 16:42] LABS: Vitamin D 25 Hydroxy (D3) 59.2 ng/mL (30.0-100.0)
[2020-12-26 16:43] LABS: Free T3, Triiodothyronine Free 5.08 pg/mL (2.77-5.27); Free T4, Direct Thyroxine 0.98 ng/dL (0.78-2.19)
[2020-12-26 17:06] LABS: Thyroid Stimulating Hormone < 0.015 uIU/mL (0.47-4.68)
[2020-12-26 17:14] LABS: Vitamin B12 494 pg/mL (239-931)
== END ==
PROVIDERS: Family Provider Internal Medicine; PCP Internal Medicine; Referring Provider Internal Medicine; Visit Provider Internal Medicine
DX: E53.8 Deficiency of other specified B group vitamins (principal); L65.9 Nonscarring hair loss, unspecified; E03.9 Hypothyroidism, unspecified
CPT/HCPCS: 36415; 80053; 82306; 82607; 83540; 83550; 84439; 84443; 84481; 85027

== ENCOUNTER → 2020-12-27 13:59 | Outpatient (ROUT) | payer MEDICARE, OTHER, SELFPAY ==
[2020-10-03 10:50] VITALS: BMI 30.3
[2020-12-27 14:07] LABS: Appearance Urine UA CLEAR; Bilirubin Urine UA NEGATIVE (NEGATIVE); Color Urine UA YELLOW; Glucose Urine UA NEGATIVE (Negative); Ketones Urine UA NEGATIVE (NEGATIVE); Leukocyte Esterase Urine UA 3+ (NEGATIVE); Nitrite Urine UA POSITIVE (Negative); Occult Blood Urine UA 1+ (Negative); Protein Urine UA TRACE (Negative); Urobilinogen Urine UA 0.2 E.U./dL (0.2)
[2020-12-27 14:12] LABS: Bacteria Urine Many (>30); Culture Indicated Urine Specimen Cultured; RBC Urine 1-5/HPF (0-5/HPF); WBC Urine 5-10/HPF (0-5/HPF)
== END ==
PROVIDERS: Family Provider Internal Medicine; PCP Internal Medicine; Visit Provider Specialist
DX: N39.0 Urinary tract infection, site not specified (principal)
CPT/HCPCS: 81001; 87077; 87086; 87186

== ENCOUNTER → 2021-01-17 15:03 | Outpatient (ROUT) | payer MEDICARE, OTHER, SELFPAY ==
[2020-10-03 10:50] VITALS: BMI 30.3
[2021-01-17 15:05] LABS: Bacteria Urine None Seen
[2021-01-17 15:12] LABS: Appearance Urine UA CLEAR; Bilirubin Urine UA NEGATIVE (NEGATIVE); Color Urine UA YELLOW; Glucose Urine UA NEGATIVE (Negative); Ketones Urine UA NEGATIVE (NEGATIVE); Leukocyte Esterase Urine UA 1+ (NEGATIVE); Nitrite Urine UA POSITIVE (Negative); Occult Blood Urine UA 2+ (Negative); Protein Urine UA 3+ (Negative); Specific Gravity Urine UA 1.015 (1.000-1.035); Urobilinogen Urine UA 0.2 E.U./dL (0.2); pH Urine UA 7.5 (4.5-8.0)
[2021-01-17 15:25] LABS: RBC Urine 1-5/HPF (0-5/HPF); Squamous Epithelial Cell Urine 0-1 /HPF (0-5/HPF); WBC Urine 5-10/HPF (0-5/HPF)
== END ==
PROVIDERS: Family Provider Internal Medicine; PCP Internal Medicine; Visit Provider Specialist
DX: N39.0 Urinary tract infection, site not specified (principal)
CPT/HCPCS: 81001; 87077; 87086; 87186

== ENCOUNTER → 2021-02-14 14:05 | Outpatient (ROUT) | payer MEDICARE, OTHER, SELFPAY ==
[2020-10-03 10:50] VITALS: BMI 30.3
[2021-02-14 14:29] LABS: Bilirubin Urine UA NEGATIVE (NEGATIVE); Color Urine UA YELLOW; Glucose Urine UA NEGATIVE (Negative); Ketones Urine UA NEGATIVE (NEGATIVE); Leukocyte Esterase Urine UA 2+ (NEGATIVE); Nitrite Urine UA POSITIVE (Negative); Occult Blood Urine UA 1+ (Negative); Protein Urine UA NEGATIVE (Negative); Urobilinogen Urine UA 0.2 E.U./dL (0.2); pH Urine UA 7.5 (4.5-8.0)
[2021-02-14 14:39] LABS: Appearance Urine UA Slightly Cloudy; RBC Urine 1-5/HPF (0-5/HPF); WBC Urine 5-10/HPF (0-5/HPF)
[2021-02-14 14:40] LABS: Amorphous Sediment Urine 1+; Bacteria Urine Moderate (10-30); Squamous Epithelial Cell Urine 0-1 /HPF (0-5/HPF)
== END ==
PROVIDERS: Family Provider Internal Medicine; PCP Internal Medicine; Visit Provider Specialist
DX: R82.90 Unspecified abnormal findings in urine (principal)
CPT/HCPCS: 81001; 87077; 87086; 87186

== ENCOUNTER 2021-02-17 03:11 | Emergency (ER) | payer MEDICARE, OTHER, SELFPAY ==
[2020-10-03 10:50] VITALS: BMI 30.3
[2021-02-17] VITALS (10 sets, daily range): BP systolic 134–161; BP diastolic 66–74; PULSE 85–93; RESP 16–21; TEMP 38.8–40; O2SAT 96–100
--- NOTE | 2021-02-17 03:21 | DI.CT.S_ITS ---
PROCEDURE: CT HEAD/BRAIN WO CON INDICATIONS: altered, unresponsive TECHNIQUE: Noncontrast 4.5 mm thick angled axial sections acquired from the foramen magnum to the vertex, with coronal and sagittal reformats. For radiation dose reduction, the following was used: automated exposure control, adjustment of mA and/or kV according to patient size. COMPARISON: [facility], CT, CT HEAD/BRAIN WO CON, 08/28/2020, 2:30. [facility], CT, CT HEAD/BRAIN WO CON, 03/01/2019, 16:07. MR, BRAIN W&WO CONTRAST, 04/26/2016, 15:10. [facility], CT, HEAD WITHOUT CONTRAST, 04/25/2016, 20:30. CT, HEAD WITHOUT CONTRAST, 04/25/2016, 13:22. FINDINGS: Image quality: Excellent. CSF spaces: Basal cisterns are patent. No extra-axial fluid collections. The ventricles are symmetric in size and shape. Brain: Encephalomalacia the anterior-lateral right frontal lobe is stable. Hyperdense material deep to right craniotomy postsurgical changes is stable compared to prior examinations. No intracranial bleeds or masses. There is cerebral volume loss for age, with resultant ventricular and sulcal prominence. There are periventricular and deep white matter chronic small vessel ischemic changes. There is intracranial internal carotid artery atherosclerosis. Skull and face: Prior right parietal-occipital craniotomy stable in appearance. The visualized facial bones appear intact, without suspicious lesions. Sinuses: Visualized sinuses and mastoids are clear. IMPRESSION: Hyperdense material deep to right parietal craniotomy postsurgical changes is stable compared to prior examinations. Given stability finding is consistent with postsurgical change and not subdural hematoma. No acute intracranial disease process. Dictated by: Faith Collazo MD, PhD on 02/17/2021 at 7:06 Approved by: Faith Collazo MD, PhD on 02/17/2021 at 7:10
--- NOTE | 2021-02-17 03:26 | ED_ITS ---
HPI - Altered Mental Status General Chief Complaint: Fever Stated Complaint: Altered mental status Time Seen by Provider: 02/17/21 03:12 History of Present Illness HPI narrative: 71-year-old male former smoker wound with history of hypertension, hyperlipidemia, multiple sclerosis, prior CVA and a recently diagnosed urinary tract infection presents by EMS with chief complaint of unresponsiveness, fever and weakness. The patient is unresponsive and history comes from the paramedics. There was no report of trauma. Old charts viewed and patient is full code Related Data Home Medications Medication Instructions Recorded Confirmed fingolimod 0.5 mg capsule (Gilenya) 0.5 mg PO 0700 #0 04/25/16 12/22/20 [BACLOFEN INTRATHECAL] 1 dose CONTINUOUS INTRATHECAL 03/01/19 12/22/20 INFUSION DAILY cholecalciferol (vitamin D3) 25 2,000 unit PO BID cap 06/15/19 12/22/20 mcg (1,000 unit) capsule (Vitamin D3) Previous Rx's Medication Instructions Recorded baclofen 10 mg tablet 10 mg PO TID PRN #30 tab 10/14/19 oxycodone 20 mg tablet 10 - 40 mg PO Q4H PRN #540 tab 01/21/20 amitriptyline 10 mg tablet See Rx Instructions .ROUTE 03/17/20 .COMPLEX #90 tablet venlafaxine 75 mg capsule,extended 75 mg PO TID #270 cap 04/07/20 release 24 hr amlodipine 10 mg tablet 10 mg PO DAILY #90 tab 07/14/20 atorvastatin 10 mg tablet (Lipitor) 10 mg PO DAILY #90 tab 07/14/20 levothyroxine 125 mcg tablet 125 mcg PO DAILY #90 tab 10/06/20 carbamazepine 200 mg tablet 600 mg PO 0700,1900 #360 tab 11/08/20 gabapentin 300 mg capsule See Rx Instructions PO TID #990 cap 11/24/20 cyanocobalamin (vitamin B-12) 1,000 mcg IM QMONTH #1 ea 12/22/20 1,000 mcg/mL injection kit liothyronine 5 mcg tablet (Cytomel) 5 mcg PO 0700,1900 #180 tab 01/02/21 methylphenidate HCl 5 mg tablet 5 mg PO 1900 #90 tab 01/16/21 sulfamethoxazole 800 1 tab PO Q12H 3 Days #6 tab 02/15/21 mg-trimethoprim 160 mg tablet (Bactrim DS) lidocaine HCl 2 % mucosal jelly in 1 applic TOPICAL .PRN #125 ml 02/16/21 applicator Allergies Allergy/AdvReac Type Severity Reaction Status Date / Time ciprofloxacin [CIPROFLOXACIN] Allergy Intermediate diarrhea Verified 09/30/20 09:32 (AFTER ONE TAB?!) codeine [CODEINE] AdvReac Mild MAKES HIM Verified 09/30/20 09:32 ILL morphine [MORPHINE] AdvReac Unknown NAUSEA / Verified 09/30/20 09:32 VOMITING Review of Systems Review of Systems ROS Unobtainable: Unobtainable due to mental status/LOC Patient History Medical History Abnormal liver function tests (05/19/15) Acquired hypothyroidism (07/14/13) Adenomatous polyp of colon (03/14/11) Anemia Depression Elevated PSA (~12/2017) Essential hypertension (~06/15/19) Family history of coronary arteriosclerosis [place] filter in place (05/22/13) 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) Mixed hyperlipidemia (03/14/11) Multiple sclerosis (04/22/15) Paraplegia Presence of vena cava filter Pulmonary embolism Trigeminal neuralgia (03/14/11) Urinary retention Venous stasis (03/14/11) Vitamin B 12 deficiency Surgical History History of ankle surgery History of circumcision History of vasectomy S/P craniotomy S/P insertion of intrathecal pump Status post gamma knife treatment (04/06/20) Family History Unknown Family history of coronary arteriosclerosis Grandfather Cancer Coronary artery disease Mother Cancer Coronary artery disease Hearing impairment Thyroid disorder Father Coronary artery disease Diabetes mellitus Brother Coronary artery disease Daughter Migraines Social History marital status: number of children: 2 household members: spouse and caregiver occupational status: disabled Smoking Status: Former smoker Tobacco: How many years used: 40 alcohol intake: former caffeine: Yes Smoking Status: Former smoker Substance Use Type: does not use Exam Narrative Exam Narrative: GENERAL: [71] year old patient appears stated age. Well- developed patient, ill appearing, unresponsive HEAD: Atraumatic. Normocephalic. EYES: Pupils equal round and reactive. horizontal nystagmus. No scleral icterus. No injection or drainage. ENT: Nose without bleeding, purulent drainage. Throat without erythema, tonsillar hypertrophy or exudate. Airway patent. NECK: Trachea midline. Non tender CARDIOVASCULAR: Regular rate and rhythm without murmurs, gallops, or rubs. RESPIRATORY: Clear to auscultation. Breath sounds equal bilaterally. No wheezes, rales, or rhonchi. GASTROINTESTINAL: Abdomen soft, non-tender, nondistended. EXTREMITIES: Bilateral lower extremity pitting edema.. BACK: Nontender without deformity or crepitance. No flank tenderness. NEURO: AOx3. SKIN: No rash or erythema of visible areas Initial Vital Signs Initial Vital Signs: Vital Signs Pulse Rate 89 02/17/21 03:47 Pulse Oximetry 97 02/17/21 03:47 Procedures Intubation Time out performed: Yes sedative: Ketamine paralytic: Rocuronium Mg Given: 100 Laryngoscope: other (Glidescope) Assist Device Used: other ET Tube Size: 8 ET Tube Uncuffed: No Tube Secured Depth (cm): 22 Tube Secured Location: teeth Tube Placement Confirmation: Visualized tube passing through cords, Equal breath sounds bilaterally, No breath sounds over epigastrium, Confirmation by capnometry and Chest Xray Course Orders Ordered: ED Orders 02/17/21 03:20 EKG-12 Lead Stat 02/17/21 03:21 CT head/brain wo con Stat 02/17/21 03:40 Acetaminophen Stat Blood Culture Stat COVID19 -Nasal swab/Pre-Proc Stat Complete Blood Count AUTO DIFF Stat Comprehensive Metabolic Panel Stat Ethanol (ETOH) Stat Lactate (Lactic Acid) Stat Prolactin Stat Prothrombin Time INR Stat Respiratory Panel (Film Array) Stat Salicylate Stat Thyroid Stimulating Hormone Stat Troponin & CK Cardiac Panel Stat 02/17/21 04:05 Urinalysis and Microscopic Stat Urine Drug Screen, Rapid Stat 02/17/21 05:04 XR chest 1V Stat Sodium Chloride (Normal Saline 0.9%) 1,000 mls @ 150 mls/hr IV CONT TSERING Last Admin: 02/17/21 04:26 Dose: 150 mls/hr Documented by: HGUBERN Discontinued Medications Acetaminophen (Ofirmev) 1,000 mg in 100 mls @ 400 mls/hr IV NOW ONE Stop: 02/17/21 04:07 Last Infusion: 02/17/21 04:26 Dose: 0 mls/hr Documented by: Admin: 02/17/21 04:08 Dose: 400 mls/hr Documented by: LEWIS Piperacillin Sod/Tazobactam (Sod 4.5 gm/ Sodium Chloride) 100 mls @ 200 mls/hr IV NOW ONE Stop: 02/17/21 04:07 Last Admin: 02/17/21 04:25 Dose: 200 mls/hr Documented by: LEWIS Ketamine HCl (Ketamine 500 Mg/5 Ml Inj) 100 mg IV NOW ONE Stop: 02/17/21 04:54 Rocuronium [place] (Rocuronium 50 Mg/5 Ml Inj) 100 mg IV NOW ONE Stop: 02/17/21 04:55 Consultations Consultation #1: call to [facility], images pushed, [facility] called upon receipt of Head CT Vital Signs Vital signs: Vital Signs - 8 hr 02/17/21 03:47 02/17/21 03:51 02/17/21 04:00 Temperature 104.0 F H 104.0 F H Pulse Rate 89 89 86 Respiratory Rate 21 Blood Pressure 160/68 H 160/72 H Pulse Oximetry 97 96 98 02/17/21 04:15 02/17/21 04:30 02/17/21 05:00 Temperature 103.8 F H 103.3 F H 102.2 F H Pulse Rate 87 85 89 Respiratory Rate 18 Blood Pressure 154/66 H Pulse Oximetry 97 96 100 02/17/21 05:01 02/17/21 05:06 02/17/21 05:15 Temperature 102.0 F H 102.0 F H Pulse Rate 93 H 85 88 Respiratory Rate 18 18 16 Blood Pressure 134/68 161/74 H Pulse Oximetry 99 100 100 02/17/21 05:30 Temperature 101.8 F H Pulse Rate Respiratory Rate Blood Pressure Pulse Oximetry 98 MDM - Altered Mental Status Lab Data Result diagrams: 02/17/21 03:40 02/17/21 03:40 Labs: Lab Results 02/17/21 02/17/21 02/17/21 Range/Units 03:40 03:40 03:40 WBC 5.7 (4.5-11.0) X10^3/uL RBC 4.40 L (4.5-5.9) X10^6/uL Hgb 13.7 (13.5-17.5) g/dL Hct 41.6 (41-53) % MCV 94.5 (80-100) fL MCH 31.1 (26-34) PG MCHC 32.9 (30-36) % RDW 16.0 H (11.6-14.8) % Plt Count 131 L (150-400) X10^3/uL Neut % (Auto) Not Reportable Lymph % (Auto) Not Reportable [place] % (Auto) Not Reportable Eos % (Auto) Not Reportable Baso % (Auto) Not Reportable Lymph # (Auto) Not Reportable [place] # (Auto) Not Reportable Baso # (Auto) Not Reportable PT (10.1-12.7) SECONDS INR (0.9-1.3) Sodium 132 L (137-145) mmol/L Potassium 3.7 (3.4-5.1) mmol/L Chloride 99 (98-107) mmol/L Carbon Dioxide 27 (22-32) mmol/L BUN 9 (9-20) mg/dL Creatinine 0.43 L (0.66-1.25) mg/dL Estimated GFR > 60.0 (>60) mL/min BUN/Creatinine Ratio 20.9 (6-22) Glucose 105 (80-110) mg/dL Lactate (0.7-2.1) mmol/L Calcium 9.1 (8.4-10.2) mg/dL Total Bilirubin 0.8 (0.2-1.3) mg/dL AST 42 (17-59) IU/L ALT 42 (<50) IU/L Alkaline Phosphatase 120 (38-126) U/L Total Creatine Kinase 72 (55-170) U/L CK-MB (CK-2) TNP CK-MB (CK-2) Rel Index TNP Troponin I < 0.012 (0.01-0.034) ng/mL Total Protein 6.8 (6.3-8.2) g/dL Albumin 3.6 (3.5-5.0) g/dL Globulin 3.2 (1.7-4.1) g/dL Albumin/Globulin Ratio 1.1 (1.0-2.8) TSH (0.47-4.68) uIU/mL Prolactin 5.5 (3.7-17.9) ng/mL Urine Color Urine Appearance Urine pH (4.5-8.0) Ur Specific [place] (1.000-1.035) Urine Protein (Negative) Urine Glucose (UA) (Negative) g/dL Urine Ketones (NEGATIVE) Urine Occult Blood (Negative) Urine Nitrate (Negative) Urine Bilirubin (NEGATIVE) Urine Urobilinogen (0.2) E.U./dL Ur Leukocyte Esterase (NEGATIVE) Urine RBC (0-5/HPF) Urine WBC (0-5/HPF) Urine Bacteria (None) Ur Culture Indicated? Salicylates < 1.0 (<20) mg/dL U Opiates 300ng/mL cut (Negative) Ur Oxycodone Screen (Negative) Urine Methadone Screen (Negative) Acetaminophen < 10 L (10-30) ug/mL Ur Barbiturates Screen (Negative) U Tricyclic Antidepress (Negative) Ur Phencyclidine Scrn (Negative) Ur Amphetamines Screen (Negative) U Methamphetamines Scrn (Negative) Ur MDMA Scrn (Ecstasy) (Negative) U Benzodiazepines Scrn (Negative) Urine Cocaine Screen (Negative) U Marijuana (THC) Screen (Negative) Ethyl Alcohol < 10 ( - 10) mg/dL Chlamy pneumoniae PCR (Not Detect) Adenovirus (PCR) (Not Detect) B. pertussis DNA (PCR) (Not Detecte) B.parapertussis DNA PCR (Not Detecte) Coronavirus OC43 (PCR) (Not Detect) Coronavirus HKU1 (PCR) (Not Detect) Coronavirus 229E (PCR) (Not Detect) SARS-CoV-2 (PCR) (Negative) Coronavirus NL63 (PCR) (Not Detect) Human Metapneumovir PCR (Not Detect) Influenza Type A (PCR) (Not Detect) Influenza Type B (PCR) (Not Detect) M. pneumoniae (PCR) (Not Detect) Parainfluenza 1 (PCR) (Not Detect) Parainfluenza 2 (PCR) (Not Detect) Parainfluenza 3 (PCR) (Not Detect) Parainfluenza 4 (PCR) (Not Detect) RSV (PCR) (Not Detect) Entero/Rhino (PCR) (Not Detect) 02/17/21 02/17/21 02/17/21 Range/Units 03:40 03:40 03:40 WBC (4.5-11.0) X10^3/uL RBC (4.5-5.9) X10^6/uL Hgb (13.5-17.5) g/dL Hct (41-53) % MCV (80-100) fL MCH (26-34) PG MCHC (30-36) % RDW (11.6-14.8) % Plt Count (150-400) X10^3/uL Neut % (Auto) Lymph % (Auto) [place] % (Auto) Eos % (Auto) Baso % (Auto) Lymph # (Auto) [place] # (Auto) Baso # (Auto) PT 13.0 H (10.1-12.7) SECONDS INR 1.2 (0.9-1.3) Sodium (137-145) mmol/L Potassium (3.4-5.1) mmol/L Chloride (98-107) mmol/L Carbon Dioxide (22-32) mmol/L BUN (9-20) mg/dL Creatinine (0.66-1.25) mg/dL Estimated GFR (>60) mL/min BUN/Creatinine Ratio (6-22) Glucose (80-110) mg/dL Lactate 1.4 (0.7-2.1) mmol/L Calcium (8.4-10.2) mg/dL Total Bilirubin (0.2-1.3) mg/dL AST (17-59) IU/L ALT (<50) IU/L Alkaline Phosphatase (38-126) U/L Total Creatine Kinase (55-170) U/L CK-MB (CK-2) CK-MB (CK-2) Rel Index Troponin I (0.01-0.034) ng/mL Total Protein (6.3-8.2) g/dL Albumin (3.5-5.0) g/dL Globulin (1.7-4.1) g/dL Albumin/Globulin Ratio (1.0-2.8) TSH < 0.015 L (0.47-4.68) uIU/mL Prolactin (3.7-17.9) ng/mL Urine Color Urine Appearance Urine pH (4.5-8.0) Ur Specific [place] (1.000-1.035) Urine Protein (Negative) Urine Glucose (UA) (Negative) g/dL Urine Ketones (NEGATIVE) Urine Occult Blood (Negative) Urine Nitrate (Negative) Urine Bilirubin (NEGATIVE) Urine Urobilinogen (0.2) E.U./dL Ur Leukocyte Esterase (NEGATIVE) Urine RBC (0-5/HPF) Urine WBC (0-5/HPF) Urine Bacteria (None) Ur Culture Indicated? Salicylates (<20) mg/dL U Opiates 300ng/mL cut (Negative) Ur Oxycodone Screen (Negative) Urine Methadone Screen (Negative) Acetaminophen (10-30) ug/mL Ur Barbiturates Screen (Negative) U Tricyclic Antidepress (Negative) Ur Phencyclidine Scrn (Negative) Ur Amphetamines Screen (Negative) U Methamphetamines Scrn (Negative) Ur MDMA Scrn (Ecstasy) (Negative) U Benzodiazepines Scrn (Negative) Urine Cocaine Screen (Negative) U Marijuana (THC) Screen (Negative) Ethyl Alcohol ( - 10) mg/dL Chlamy pneumoniae PCR (Not Detect) Adenovirus (PCR) (Not Detect) B. pertussis DNA (PCR) (Not Detecte) B.parapertussis DNA PCR (Not Detecte) Coronavirus OC43 (PCR) (Not Detect) Coronavirus HKU1 (PCR) (Not Detect) Coronavirus 229E (PCR) (Not Detect) SARS-CoV-2 (PCR) (Negative) Coronavirus NL63 (PCR) (Not Detect) Human Metapneumovir PCR (Not Detect) Influenza Type A (PCR) (Not Detect) Influenza Type B (PCR) (Not Detect) M. pneumoniae (PCR) (Not Detect) Parainfluenza 1 (PCR) (Not Detect) Parainfluenza 2 (PCR) (Not Detect) Parainfluenza 3 (PCR) (Not Detect) Parainfluenza 4 (PCR) (Not Detect) RSV (PCR) (Not Detect) Entero/Rhino (PCR) (Not Detect) 02/17/21 02/17/21 02/17/21 Range/Units 03:40 03:40 04:05 WBC (4.5-11.0) X10^3/uL RBC (4.5-5.9) X10^6/uL Hgb (13.5-17.5) g/dL Hct (41-53) % MCV (80-100) fL MCH (26-34) PG MCHC (30-36) % RDW (11.6-14.8) % Plt Count (150-400) X10^3/uL Neut % (Auto) Lymph % (Auto) [place] % (Auto) Eos % (Auto) Baso % (Auto) Lymph # (Auto) [place] # (Auto) Baso # (Auto) PT (10.1-12.7) SECONDS INR (0.9-1.3) Sodium (137-145) mmol/L Potassium (3.4-5.1) mmol/L Chloride (98-107) mmol/L Carbon Dioxide (22-32) mmol/L BUN (9-20) mg/dL Creatinine (0.66-1.25) mg/dL Estimated GFR (>60) mL/min BUN/Creatinine Ratio (6-22) Glucose (80-110) mg/dL Lactate (0.7-2.1) mmol/L Calcium (8.4-10.2) mg/dL Total Bilirubin (0.2-1.3) mg/dL AST (17-59) IU/L ALT (<50) IU/L Alkaline Phosphatase (38-126) U/L Total Creatine Kinase (55-170) U/L CK-MB (CK-2) CK-MB (CK-2) Rel Index Troponin I (0.01-0.034) ng/mL Total Protein (6.3-8.2) g/dL Albumin (3.5-5.0) g/dL Globulin (1.7-4.1) g/dL Albumin/Globulin Ratio (1.0-2.8) TSH (0.47-4.68) uIU/mL Prolactin (3.7-17.9) ng/mL Urine Color Yellow Urine Appearance Clear Urine pH 6.5 (4.5-8.0) Ur Specific [place] <=1.005 (1.000-1.035) Urine Protein Negative (Negative) Urine Glucose (UA) Negative (Negative) g/dL Urine Ketones Negative (NEGATIVE) Urine Occult Blood 3+ H (Negative) Urine Nitrate Negative (Negative) Urine Bilirubin Negative (NEGATIVE) Urine Urobilinogen 1.0 (0.2) E.U./dL Ur Leukocyte Esterase Negative (NEGATIVE) Urine RBC 10-30/hpf H (0-5/HPF) Urine WBC None seen (0-5/HPF) Urine Bacteria None seen (None) Ur Culture Indicated? Cult not indicated Salicylates (<20) mg/dL U Opiates 300ng/mL cut (Negative) Ur Oxycodone Screen (Negative) Urine Methadone Screen (Negative) Acetaminophen (10-30) ug/mL Ur Barbiturates Screen (Negative) U Tricyclic Antidepress (Negative) Ur Phencyclidine Scrn (Negative) Ur Amphetamines Screen (Negative) U Methamphetamines Scrn (Negative) Ur MDMA Scrn (Ecstasy) (Negative) U Benzodiazepines Scrn (Negative) Urine Cocaine Screen (Negative) U Marijuana (THC) Screen (Negative) Ethyl Alcohol ( - 10) mg/dL Chlamy pneumoniae PCR Not detected (Not Detect) Adenovirus (PCR) Not detected (Not Detect) B. pertussis DNA (PCR) Not detected (Not Detecte) B.parapertussis DNA PCR Not detected (Not Detecte) Coronavirus OC43 (PCR) Not detected (Not Detect) Coronavirus HKU1 (PCR) Not detected (Not Detect) Coronavirus 229E (PCR) Not detected (Not Detect) SARS-CoV-2 (PCR) Negative Not detected (Negative) Coronavirus NL63 (PCR) Not detected (Not Detect) Human Metapneumovir PCR Not detected (Not Detect) Influenza Type A (PCR) Not detected (Not Detect) Influenza Type B (PCR) Not detected (Not Detect) M. pneumoniae (PCR) Not detected (Not Detect) Parainfluenza 1 (PCR) Not detected (Not Detect) Parainfluenza 2 (PCR) Not detected (Not Detect) Parainfluenza 3 (PCR) Not detected (Not Detect) Parainfluenza 4 (PCR) Not detected (Not Detect) RSV (PCR) Not detected (Not Detect) Entero/Rhino (PCR) Not detected (Not Detect) 02/17/21 Range/Units 04:05 WBC (4.5-11.0) X10^3/uL RBC (4.5-5.9) X10^6/uL Hgb (13.5-17.5) g/dL Hct (41-53) % MCV (80-100) fL MCH (26-34) PG MCHC (30-36) % RDW (11.6-14.8) % Plt Count (150-400) X10^3/uL Neut % (Auto) Lymph % (Auto) [place] % (Auto) Eos % (Auto) Baso % (Auto) Lymph # (Auto) [place] # (Auto) Baso # (Auto) PT (10.1-12.7) SECONDS INR (0.9-1.3) Sodium (137-145) mmol/L Potassium (3.4-5.1) mmol/L Chloride (98-107) mmol/L Carbon Dioxide (22-32) mmol/L BUN (9-20) mg/dL Creatinine (0.66-1.25) mg/dL Estimated GFR (>60) mL/min BUN/Creatinine Ratio (6-22) Glucose (80-110) mg/dL Lactate (0.7-2.1) mmol/L Calcium (8.4-10.2) mg/dL Total Bilirubin (0.2-1.3) mg/dL AST (17-59) IU/L ALT (<50) IU/L Alkaline Phosphatase (38-126) U/L Total Creatine Kinase (55-170) U/L CK-MB (CK-2) CK-MB (CK-2) Rel Index Troponin I (0.01-0.034) ng/mL Total Protein (6.3-8.2) g/dL Albumin (3.5-5.0) g/dL Globulin (1.7-4.1) g/dL Albumin/Globulin Ratio (1.0-2.8) TSH (0.47-4.68) uIU/mL Prolactin (3.7-17.9) ng/mL Urine Color Urine Appearance Urine pH (4.5-8.0) Ur Specific [place] (1.000-1.035) Urine Protein (Negative) Urine Glucose (UA) (Negative) g/dL Urine Ketones (NEGATIVE) Urine Occult Blood (Negative) Urine Nitrate (Negative) Urine Bilirubin (NEGATIVE) Urine Urobilinogen (0.2) E.U./dL Ur Leukocyte Esterase (NEGATIVE) Urine RBC (0-5/HPF) Urine WBC (0-5/HPF) Urine Bacteria (None) Ur Culture Indicated? Salicylates (<20) mg/dL U Opiates 300ng/mL cut Negative (Negative) Ur Oxycodone Screen Negative (Negative) Urine Methadone Screen Negative (Negative) Acetaminophen (10-30) ug/mL Ur Barbiturates Screen Negative (Negative) U Tricyclic Antidepress Positive H (Negative) Ur Phencyclidine Scrn Negative (Negative) Ur Amphetamines Screen Negative (Negative) U Methamphetamines Scrn Negative (Negative) Ur MDMA Scrn (Ecstasy) Negative (Negative) U Benzodiazepines Scrn Negative (Negative) Urine Cocaine Screen Negative (Negative) U Marijuana (THC) Screen Negative (Negative) Ethyl Alcohol ( - 10) mg/dL Chlamy pneumoniae PCR (Not Detect) Adenovirus (PCR) (Not Detect) B. pertussis DNA (PCR) (Not Detecte) B.parapertussis DNA PCR (Not Detecte) Coronavirus OC43 (PCR) (Not Detect) Coronavirus HKU1 (PCR) (Not Detect) Coronavirus 229E (PCR) (Not Detect) SARS-CoV-2 (PCR) (Negative) Coronavirus NL63 (PCR) (Not Detect) Human Metapneumovir PCR (Not Detect) Influenza Type A (PCR) (Not Detect) Influenza Type B (PCR) (Not Detect) M. pneumoniae (PCR) (Not Detect) Parainfluenza 1 (PCR) (Not Detect) Parainfluenza 2 (PCR) (Not Detect) Parainfluenza 3 (PCR) (Not Detect) Parainfluenza 4 (PCR) (Not Detect) RSV (PCR) (Not Detect) Entero/Rhino (PCR) (Not Detect) Imaging Data CT scan - head: Radiologist's Impression: Acute right subdural hematoma with 2 mm of midline shift to the left MDM Narrative Medical decision making narrative: Patient with declining respiratory status, patient intubated for protection of airway for transport. Patient intubated easily, first pass Much of the story is consistent with metabolic encephalopathy secondary to sepsis. White blood cell count or elevated lactate. Post intubation CXR would suggest we could advance the tube 1-2cm Critical Care Time Critical Care Time Attestation: The high probability of a clinically significant, sudden or life threatening deterioration of the [Neuro/CV] system(s) required my full and direct attention, intervention and personal management. The aggregate critical care time was [35] minutes. This time is in addition to time spent performing reported procedures but includes the following: [x] Data Review and interpretation [x] Patient assessment and monitoring of vital signs [x] Documentation [x] Medication orders and management Discharge Plan Departure Patient Disposition: [facility] Clinical Impression: Acute subdural hematoma Respiratory failure Qualifiers: Chronicity: acute Respiratory failure complication: unspecified whether with hypoxia or hypercapnia Qualified Code(s): J96.00 - Acute respiratory failure, unspecified whether with hypoxia or hypercapnia Prescriptions: No Action Gilenya 0.5 MG capsule 0.5 mg PO 0700 Qty: 0 RF: 0 baclofen 10 mg tablet 10 mg PO TID PRN (Reason: muscle spasm) Qty: 30 RF: 0 venlafaxine 75 mg capsule,extended release 24hr 75 mg PO TID Qty: 270 RF: 3 carbamazepine 200 mg tablet 600 mg PO 0700,1900 Qty: 360 RF: 3 liothyronine [Cytomel] 5 mcg tablet 5 mcg PO 0700,1900 Qty: 180 RF: 3 methylphenidate HCl 5 mg tablet 5 mg PO 1900 Qty: 90 RF: 0 sulfamethoxazole-trimethoprim [Bactrim DS] 800-160 mg tablet 1 tab PO Q12H 3 Days Qty: 6 RF: 0 lidocaine HCl 2 % jelly in applicator 1 applic topical .PRN Qty: 125 RF: 1 amitriptyline 10 mg tablet See Rx Instructions .ROUTE .COMPLEX Qty: 90 RF: 3 gabapentin 300 mg capsule See Rx Instructions PO TID Qty: 990 RF: 3 oxycodone 20 mg tablet 10 - 40 mg PO Q4H PRN (Reason: pain) Qty: 540 RF: 0 atorvastatin [Lipitor] 10 mg tablet 10 mg PO DAILY Qty: 90 RF: 3 amlodipine 10 mg tablet 10 mg PO DAILY Qty: 90 RF: 3 levothyroxine 125 mcg tablet 125 mcg PO DAILY Qty: 90 RF: 3 cyanocobalamin (vitamin B-12) 1,000 mcg/mL kit 1,000 mcg IM QMONTH Qty: 1 RF: 12 [BACLOFEN INTRATHECAL] 1 dose continuous intrathecal infusion DAILY RF: 0 cholecalciferol (vitamin D3) [Vitamin D3] 1,000 unit capsule 2,000 unit PO BID RF: 0 Referrals: Bala Alberts MD [Primary Care Provider] -
[2021-02-17 04:08] LABS: Hematocrit 41.6 % (41-53); Hemoglobin 13.7 g/dL (13.5-17.5); Mean Corpuscular HGB Conc 32.9 % (30-36); Mean Corpuscular Hemoglobin 31.1 PG (26-34); Mean Corpuscular Volume 94.5 fL (80-100); Platelet Count 131 X10^3/uL (150-400); White Blood Cell Count 5.7 X10^3/uL (4.5-11.0)
[2021-02-17] MEDS: ACETAMINOPHEN IV 1,000 MG/100 ML VIAL 400 MG IV (04:08)
[2021-02-17 04:09] LABS: Add Manual Diff / Slide Review YES
[2021-02-17 04:17] LABS: COVID19 -Nasal RAPID Negative (Negative); INR 1.2 (0.9-1.3)
[2021-02-17 04:18] LABS: Lactate (Lactic Acid) 1.4 mmol/L (0.7-2.1)
[2021-02-17 04:19] LABS: Acetaminophen < 10 ug/mL (10-30); Alanine Aminotransferase 42 IU/L (<50); Albumin 3.6 g/dL (3.5-5.0); Albumin Globulin Ratio 1.1 (1.0-2.8); Alkaline Phosphatase 120 U/L (38-126); Aspartate Aminotransferase 42 IU/L (17-59); BUN Creatinine Ratio 20.9 (6-22); Bilirubin Total 0.8 mg/dL (0.2-1.3); Blood Urea Nitrogen 9 mg/dL (9-20); Calcium 9.1 mg/dL (8.4-10.2); Carbon Dioxide 27 mmol/L (22-32); Chloride 99 mmol/L (98-107); Creatine Kinase 72 U/L (55-170); Estimated Glomerular Filt Rate > 60.0 mL/min (>60); Ethanol (ETOH) < 10 mg/dL; Globulin 3.2 g/dL (1.7-4.1); Glucose 105 mg/dL (80-110); HEMOLYSIS < 15 (0-50); Potassium 3.7 mmol/L (3.4-5.1); Salicylate < 1.0 mg/dL (<20); Sodium 132 mmol/L (137-145); Total Protein 6.8 g/dL (6.3-8.2)
[2021-02-17] MEDS: PIPERACILLIN/TAZO 4.5 GM in SODIUM CHLORIDE 0.9% 100 ML 200 ML IV (04:25)
[2021-02-17] MEDS: SODIUM CHLORIDE 0.9% 1,000 ML 150 ML IV (04:26)
[2021-02-17 04:30] LABS: Troponin I < 0.012 ng/mL (0.01-0.034)
[2021-02-17 04:35] LABS: Prolactin 5.5 ng/mL (3.7-17.9)
[2021-02-17] MEDS: KETAMINE 500 MG/5 ML INJ 100 MG IV (04:43)
[2021-02-17] MEDS: ROCURONIUM 100 MG/10 ML VIAL IV (04:44)
[2021-02-17 04:59] LABS: Adenovirus Not Detected (Not Detect); Coronavirus 229E Not Detected (Not Detect); SARS- CoV-2 Not Detected (Not Detecte)
[2021-02-17 05:00] LABS: B. parapertussis Not Detected (Not Detecte); Bordetella pertussis Not Detected (Not Detecte); Chlamydophila pneumoniae Not Detected (Not Detect); Coronavirus HKU1 Not Detected (Not Detect); Coronavirus NL 63 Not Detected (Not Detect); Coronavirus OC43 Not Detected (Not Detect); Human Metapneumovirus Not Detected (Not Detect); Human Rhinovirus/Enterovirus Not Detected (Not Detect); Influenza A Not Detected (Not Detect); Influenza B Not Detected (Not Detect); Mycoplasma pneumoniae Not Detected (Not Detect); Parainfluenza Virus 1 Not Detected (Not Detect); Parainfluenza Virus 2 Not Detected (Not Detect); Parainfluenza Virus 3 Not Detected (Not Detect); Parainfluenza Virus 4 Not Detected (Not Detect); Respiratory Syncytial Virus Not Detected (Not Detect)
[2021-02-17 05:01] LABS: Thyroid Stimulating Hormone < 0.015 uIU/mL (0.47-4.68)
--- NOTE | 2021-02-17 05:04 | DI.RAD.S_ITS ---
PROCEDURE: XR CHEST 1V INDICATIONS: post intubation TECHNIQUE: One view of the chest was acquired. COMPARISON: Merged With [facility], CR, XR CHEST 1V, 08/28/2020, 1:19. FINDINGS: Surgical changes and devices: ET tube 5.0 centimeters superior to the swapna. Lungs and pleura: Streaky opacities noted in the right lung base likely represents atelectasis. No pleural effusions or pneumothorax. Mediastinum: Mediastinal contours appear normal. Heart size is normal. Bones and chest wall: No suspicious bony lesions. Overlying soft tissues appear unremarkable. IMPRESSION: ET tube 5.0 centimeters superior to the swapna. Dictated by: Faith Collazo MD, PhD on 02/17/2021 at 9:08 Approved by: Faith Collazo MD, PhD on 02/17/2021 at 9:08
[2021-02-17 05:14] LABS: Bacteria Urine None Seen; WBC Urine None Seen (0-5/HPF)
[2021-02-17 05:15] LABS: Appearance Urine UA CLEAR; Bilirubin Urine UA NEGATIVE (NEGATIVE); Color Urine UA YELLOW; Glucose Urine UA NEGATIVE (Negative); Ketones Urine UA NEGATIVE (NEGATIVE); Leukocyte Esterase Urine UA NEGATIVE (NEGATIVE); Nitrite Urine UA NEGATIVE (Negative); Occult Blood Urine UA 3+ (Negative); Protein Urine UA NEGATIVE (Negative); Specific Gravity Urine UA <=1.005 (1.000-1.035); pH Urine UA 6.5 (4.5-8.0)
[2021-02-17 05:22] LABS: Ur Creatinine 20 (Normal)
[2021-02-17 05:23] LABS: UR Morphine/Opiate cutoff 300 Negative (Negative); Ur Specific Gravity <1.005 (Normal); Urine Amphetamines Negative (Negative); Urine Barbiturates Negative (Negative); Urine Benzodiazepines Negative (Negative); Urine Cocaine Negative (Negative); Urine MDMA Negative (Negative); Urine Methadone Negative (Negative); Urine Methamphetamines Negative (Negative); Urine Oxycodone Negative (Negative); Urine Phencyclidine Negative (Negative); Urine Tetrahydrocannabinol Negative (Negative); Urine Tricyclic Antidepressant Positive (Negative); Urine pH 6.5 (Normal)
--- NOTE | 2021-02-17 05:23 | RT ---
Patient intubated for airway protection and transport. 8.0 tube secured initially at 24 at top teeth. Tube just at clavicle and inserted 2 cm to 26 at top teeth per md orders. Set on vent at rate of 18, vt 500, FIO2 100% and PEEP of 5. EtCO2 running 28-30. SPO2 99%. Transport team arrived and report given.
[2021-02-17 05:47] LABS: Culture Indicated Urine Cult Not Indicated; RBC Urine 10-30/HPF (0-5/HPF)
--- NOTE | 2021-02-17 06:49 | PC.NURSE ---
Removed previous catheter and blood immediately started coming out of the meatus.
[2021-02-17 07:02] LABS: Neutrophils Absolute Manual 5073 /uL (3000-5900); Total Cells Counted 100
[2021-02-17 07:06] LABS: Anisocytosis 1+
== END 2021-02-17 05:45 | disposition short-term general hospital (02) ==
PROVIDERS: Emergency Provider Emergency Medicine; Family Provider Internal Medicine; PCP Internal Medicine
DX: S06.5X9A Traumatic subdural hemorrhage with loss of consciousness of unspecified duration, initial encounter (principal); J96.00 Acute respiratory failure, unspecified whether with hypoxia or hypercapnia; R50.9 Fever, unspecified; Z20.822 Contact with and (suspected) exposure to COVID-19
CPT/HCPCS: 31500; 36415; 51702; 70450; 71045; 80053; 80305; 80320; 80329; 81001; 82550; 83605; 84146; 84443; 84484; 85007; 85025; 85610; 87040; 87633; 87635; 94002; 94799; 96365; 96367; 96375; 99285; 99291; 99292; C9803; G0480; J0131; J2543

== ENCOUNTER → 2021-02-21 16:24 | Outpatient (ROUT) | payer MEDICARE, OTHER, SELFPAY ==
[2020-10-03 10:50] VITALS: BMI 30.3
[2021-02-17 05:01] VITALS: PULSE 93; RESP 18; O2SAT 99
[2021-02-21 16:28] LABS: Bacteria Urine None Seen
[2021-02-21 16:33] LABS: Appearance Urine UA CLEAR; Bilirubin Urine UA NEGATIVE (NEGATIVE); Color Urine UA YELLOW; Glucose Urine UA NEGATIVE (Negative); Ketones Urine UA NEGATIVE (NEGATIVE); Leukocyte Esterase Urine UA NEGATIVE (NEGATIVE); Nitrite Urine UA NEGATIVE (Negative); Occult Blood Urine UA 1+ (Negative); Protein Urine UA TRACE (Negative); Urobilinogen Urine UA 0.2 E.U./dL (0.2); pH Urine UA 6.5 (4.5-8.0)
[2021-02-21 16:42] LABS: Culture Indicated Urine Cult Not Indicated; Mucus Urine 1+ (Negative); RBC Urine 1-5/HPF (0-5/HPF); Squamous Epithelial Cell Urine 0-1 /HPF (0-5/HPF); WBC Urine 0-1/HPF (0-5/HPF)
== END ==
PROVIDERS: Family Provider Internal Medicine; PCP Internal Medicine; Visit Provider Specialist
DX: N39.0 Urinary tract infection, site not specified (principal)
CPT/HCPCS: 81001

== ENCOUNTER → 2021-03-14 11:08 | Outpatient (ROUT) | payer MEDICARE, OTHER, SELFPAY ==
[2020-10-03 10:50] VITALS: BMI 30.3
[2021-02-17 05:01] VITALS: PULSE 93; RESP 18; O2SAT 99
[2021-03-14 11:27] LABS: Appearance Urine UA SL CLOUDY; Bilirubin Urine UA NEGATIVE (NEGATIVE); Color Urine UA YELLOW; Glucose Urine UA NEGATIVE (Negative); Ketones Urine UA NEGATIVE (NEGATIVE); Leukocyte Esterase Urine UA 2+ (NEGATIVE); Nitrite Urine UA POSITIVE (Negative); Occult Blood Urine UA 1+ (Negative); Protein Urine UA TRACE (Negative); Specific Gravity Urine UA 1.015 (1.000-1.035); Urobilinogen Urine UA 0.2 E.U./dL (0.2); pH Urine UA 5.5 (4.5-8.0)
[2021-03-14 11:35] LABS: Amorphous Sediment Urine 1+; Bacteria Urine Moderate (10-30); Culture Indicated Urine Specimen Cultured; RBC Urine 10-30/HPF (0-5/HPF); Squamous Epithelial Cell Urine 1-5 /HPF (0-5/HPF); WBC Urine 10-30/HPF (0-5/HPF)
== END ==
PROVIDERS: Family Provider Internal Medicine; PCP Internal Medicine; Visit Provider Specialist
DX: N39.0 Urinary tract infection, site not specified (principal)
CPT/HCPCS: 81001; 87077; 87086; 87186

== ENCOUNTER → 2021-04-04 16:53 | Outpatient (ROUT) | payer MEDICARE, OTHER, SELFPAY ==
[2020-10-03 10:50] VITALS: BMI 30.3
[2021-02-17 05:01] VITALS: PULSE 93; RESP 18; O2SAT 99
[2021-04-04 17:40] LABS: Appearance Urine UA CLEAR; Bilirubin Urine UA NEGATIVE (NEGATIVE); Color Urine UA YELLOW; Glucose Urine UA NEGATIVE (Negative); Ketones Urine UA NEGATIVE (NEGATIVE); Leukocyte Esterase Urine UA 1+ (NEGATIVE); Nitrite Urine UA NEGATIVE (Negative); Occult Blood Urine UA NEGATIVE (Negative); Protein Urine UA NEGATIVE (Negative); Specific Gravity Urine UA <=1.005 (1.000-1.035); Urobilinogen Urine UA 0.2 E.U./dL (0.2); pH Urine UA 7.5 (4.5-8.0)
[2021-04-04 17:50] LABS: Bacteria Urine Few (2-10); Culture Indicated Urine Specimen Cultured; RBC Urine None Seen (0-5/HPF); Squamous Epithelial Cell Urine 0-1 /HPF (0-5/HPF); WBC Urine 1-5/HPF (0-5/HPF)
== END ==
PROVIDERS: Family Provider Internal Medicine; PCP Internal Medicine; Visit Provider Specialist
DX: N39.0 Urinary tract infection, site not specified (principal)
CPT/HCPCS: 81001; 87077; 87086; 87186

== ENCOUNTER → 2021-04-25 12:17 | Outpatient (ROUT) | payer MEDICARE, OTHER, SELFPAY ==
[2020-10-03 10:50] VITALS: BMI 30.3
[2021-02-17 05:01] VITALS: PULSE 93; RESP 18; O2SAT 99
[2021-04-25 12:32] LABS: Appearance Urine UA CLOUDY; Bilirubin Urine UA NEGATIVE (NEGATIVE); Color Urine UA YELLOW; Glucose Urine UA NEGATIVE (Negative); Ketones Urine UA NEGATIVE (NEGATIVE); Leukocyte Esterase Urine UA 3+ (NEGATIVE); Nitrite Urine UA POSITIVE (Negative); Occult Blood Urine UA 2+ (Negative); Protein Urine UA NEGATIVE (Negative); Urobilinogen Urine UA 0.2 E.U./dL (0.2)
[2021-04-25 12:47] LABS: Amorphous Sediment Urine 2+; Bacteria Urine Many (>30); Culture Indicated Urine Specimen Cultured; RBC Urine 1-5/HPF (0-5/HPF); Squamous Epithelial Cell Urine 1-5 /HPF (0-5/HPF); WBC Urine 10-30/HPF (0-5/HPF)
== END ==
PROVIDERS: Family Provider Internal Medicine; PCP Internal Medicine; Visit Provider Specialist
DX: N39.0 Urinary tract infection, site not specified (principal)
CPT/HCPCS: 81001; 87077; 87086; 87186

== ENCOUNTER → 2021-05-16 12:42 | Outpatient (ROUT) | payer MEDICARE, OTHER, SELFPAY ==
[2020-10-03 10:50] VITALS: BMI 30.3
[2021-02-17 05:01] VITALS: PULSE 93; RESP 18; O2SAT 99
[2021-05-16 12:57] LABS: Appearance Urine UA CLEAR; Bilirubin Urine UA NEGATIVE (NEGATIVE); Color Urine UA YELLOW; Glucose Urine UA NEGATIVE (Negative); Ketones Urine UA NEGATIVE (NEGATIVE); Leukocyte Esterase Urine UA 2+ (NEGATIVE); Nitrite Urine UA NEGATIVE (Negative); Occult Blood Urine UA TRACE-INTACT (Negative); Protein Urine UA NEGATIVE (Negative); Urobilinogen Urine UA 0.2 E.U./dL (0.2); pH Urine UA 7.5 (4.5-8.0)
[2021-05-16 13:17] LABS: Bacteria Urine Moderate (10-30); Culture Indicated Urine Specimen Cultured; RBC Urine 0-1/HPF (0-5/HPF); Renal Epithelial Cells Urine 1-5/HPF (0-1/HPF); Squamous Epithelial Cell Urine 1-5 /HPF (0-5/HPF); Transitional Epi Cells Urine 1-5/HPF (0-5/HPF); WBC Urine 10-30/HPF (0-5/HPF)
== END ==
PROVIDERS: Family Provider Internal Medicine; PCP Internal Medicine; Visit Provider Specialist
DX: N39.0 Urinary tract infection, site not specified (principal)
CPT/HCPCS: 81001; 87086

== ENCOUNTER → 2021-06-06 13:13 | Outpatient (ROUT) | payer MEDICARE, OTHER, SELFPAY ==
[2020-10-03 10:50] VITALS: BMI 30.3
[2021-02-17 05:01] VITALS: PULSE 93; RESP 18; O2SAT 99
[2021-06-06 13:22] LABS: Appearance Urine UA CLEAR; Bilirubin Urine UA NEGATIVE (NEGATIVE); Color Urine UA YELLOW; Glucose Urine UA NEGATIVE (Negative); Ketones Urine UA NEGATIVE (NEGATIVE); Leukocyte Esterase Urine UA 2+ (NEGATIVE); Nitrite Urine UA NEGATIVE (Negative); Occult Blood Urine UA TRACE-INTACT (Negative); Protein Urine UA NEGATIVE (Negative); Specific Gravity Urine UA <=1.005 (1.000-1.035); Urobilinogen Urine UA 0.2 E.U./dL (0.2)
[2021-06-06 13:30] LABS: RBC Urine None Seen (0-5/HPF)
[2021-06-06 13:31] LABS: Bacteria Urine None Seen; Culture Indicated Urine Specimen Cultured; WBC Urine 5-10/HPF (0-5/HPF)
== END ==
PROVIDERS: Family Provider Internal Medicine; PCP Internal Medicine; Visit Provider Specialist
DX: N39.0 Urinary tract infection, site not specified (principal)
CPT/HCPCS: 81001; 87077; 87086; 87186

== ENCOUNTER → 2021-06-27 13:49 | Outpatient (ROUT) | payer MEDICARE, OTHER, SELFPAY ==
[2020-10-03 10:50] VITALS: BMI 30.3
[2021-02-17 05:01] VITALS: PULSE 93; RESP 18; O2SAT 99
[2021-06-27 13:55] LABS: Appearance Urine UA CLEAR; Bilirubin Urine UA NEGATIVE (NEGATIVE); Color Urine UA YELLOW; Glucose Urine UA NEGATIVE (Negative); Ketones Urine UA NEGATIVE (NEGATIVE); Leukocyte Esterase Urine UA 2+ (NEGATIVE); Nitrite Urine UA NEGATIVE (Negative); Occult Blood Urine UA 3+ (Negative); Protein Urine UA NEGATIVE (Negative); Urobilinogen Urine UA 0.2 E.U./dL (0.2); pH Urine UA 7.5 (4.5-8.0)
[2021-06-27 14:03] LABS: Bacteria Urine None Seen; Culture Indicated Urine Specimen Cultured; RBC Urine 5-10/HPF (0-5/HPF); WBC Urine 5-10/HPF (0-5/HPF)
== END ==
PROVIDERS: Family Provider Internal Medicine; PCP Internal Medicine; Visit Provider Specialist
DX: N39.0 Urinary tract infection, site not specified (principal)
CPT/HCPCS: 81001; 87077; 87086; 87185; 87186

== ENCOUNTER → 2021-07-18 13:17 | Outpatient (ROUT) | payer MEDICARE, OTHER, SELFPAY ==
[2020-10-03 10:50] VITALS: BMI 30.3
[2021-02-17 05:01] VITALS: PULSE 93; RESP 18; O2SAT 99
[2021-07-18 13:23] LABS: Appearance Urine UA CLEAR; Bilirubin Urine UA NEGATIVE (NEGATIVE); Color Urine UA YELLOW; Glucose Urine UA NEGATIVE (Negative); Ketones Urine UA NEGATIVE (NEGATIVE); Leukocyte Esterase Urine UA 2+ (NEGATIVE); Nitrite Urine UA POSITIVE (Negative); Occult Blood Urine UA TRACE-LYSED (Negative); Protein Urine UA NEGATIVE (Negative); Specific Gravity Urine UA <=1.005 (1.000-1.035); Urobilinogen Urine UA 0.2 E.U./dL (0.2); pH Urine UA 6.5 (4.5-8.0)
[2021-07-18 13:38] LABS: Bacteria Urine Many (>30); RBC Urine 0-1/HPF (0-5/HPF); Squamous Epithelial Cell Urine 0-1 /HPF (0-5/HPF); WBC Urine 10-30/HPF (0-5/HPF)
[2021-07-18 13:39] LABS: Culture Indicated Urine Specimen Cultured
== END ==
PROVIDERS: Family Provider Internal Medicine; PCP Internal Medicine; Visit Provider Specialist
DX: N39.0 Urinary tract infection, site not specified (principal)
CPT/HCPCS: 81001; 87077; 87086; 87186

== ENCOUNTER → 2021-08-09 13:10 | Outpatient (ROUT) | payer MEDICARE, OTHER, SELFPAY ==
[2020-10-03 10:50] VITALS: BMI 30.3
[2021-02-17 05:01] VITALS: PULSE 93; RESP 18; O2SAT 99
[2021-08-09 14:26] LABS: Appearance Urine UA CLEAR; Bilirubin Urine UA NEGATIVE (NEGATIVE); Color Urine UA YELLOW; Glucose Urine UA NEGATIVE (Negative); Ketones Urine UA TRACE (NEGATIVE); Leukocyte Esterase Urine UA 1+ (NEGATIVE); Nitrite Urine UA POSITIVE (Negative); Occult Blood Urine UA 3+ (Negative); Protein Urine UA NEGATIVE (Negative); Urobilinogen Urine UA 0.2 E.U./dL (0.2)
[2021-08-09 15:27] LABS: Bacteria Urine Moderate (10-30); Culture Indicated Urine Specimen Cultured; RBC Urine 10-30/HPF (0-5/HPF); Squamous Epithelial Cell Urine 0-1 /HPF (0-5/HPF); WBC Urine 10-30/HPF (0-5/HPF)
== END ==
PROVIDERS: Family Provider Internal Medicine; PCP Internal Medicine; Visit Provider Specialist
DX: N39.0 Urinary tract infection, site not specified (principal)
CPT/HCPCS: 81001; 87077; 87086; 87186

== ENCOUNTER → 2021-08-15 14:34 | Outpatient (ROUT) | payer MEDICARE, OTHER, SELFPAY ==
[2020-10-03 10:50] VITALS: BMI 30.3
[2021-02-17 05:01] VITALS: PULSE 93; RESP 18; O2SAT 99
[2021-08-15 14:49] LABS: Appearance Urine UA CLOUDY; Bilirubin Urine UA NEGATIVE (NEGATIVE); Color Urine UA YELLOW; Glucose Urine UA NEGATIVE (Negative); Ketones Urine UA NEGATIVE (NEGATIVE); Leukocyte Esterase Urine UA 3+ (NEGATIVE); Nitrite Urine UA POSITIVE (Negative); Occult Blood Urine UA 3+ (Negative); Protein Urine UA 1+ (Negative); Specific Gravity Urine UA <=1.005 (1.000-1.035)
[2021-08-15 15:01] LABS: Bacteria Urine Many (>30); RBC Urine 1-5/HPF (0-5/HPF); Squamous Epithelial Cell Urine 1-5 /HPF (0-5/HPF); WBC Urine 30-100/HPF (0-5/HPF)
[2021-08-15 15:02] LABS: Culture Indicated Urine Specimen Cultured
== END ==
PROVIDERS: Family Provider Internal Medicine; PCP Internal Medicine; Visit Provider Specialist
DX: N39.0 Urinary tract infection, site not specified (principal)
CPT/HCPCS: 81001; 87077; 87086; 87186

== ENCOUNTER → 2021-09-05 12:26 | Outpatient (ROUT) | payer MEDICARE, OTHER, SELFPAY ==
[2020-10-03 10:50] VITALS: BMI 30.3
[2021-02-17 05:01] VITALS: PULSE 93; RESP 18; O2SAT 99
[2021-09-05 12:53] LABS: Appearance Urine UA SL CLOUDY; Bilirubin Urine UA NEGATIVE (NEGATIVE); Color Urine UA YELLOW; Glucose Urine UA NEGATIVE (Negative); Ketones Urine UA NEGATIVE (NEGATIVE); Leukocyte Esterase Urine UA 1+ (NEGATIVE); Nitrite Urine UA POSITIVE (Negative); Occult Blood Urine UA 3+ (Negative); Protein Urine UA 2+ (Negative)
[2021-09-05 13:15] LABS: Amorphous Sediment Urine 1+; Bacteria Urine Many (>30); Mucus Urine 2+ (Negative); RBC Urine 5-10/HPF (0-5/HPF); Squamous Epithelial Cell Urine 1-5 /HPF (0-5/HPF); WBC Urine 10-30/HPF (0-5/HPF)
[2021-09-05 13:16] LABS: Culture Indicated Urine Specimen Cultured
== END ==
PROVIDERS: Family Provider Internal Medicine; PCP Internal Medicine; Visit Provider Specialist
DX: N39.0 Urinary tract infection, site not specified (principal)
CPT/HCPCS: 81001; 87077; 87086; 87186

== ENCOUNTER → 2021-10-03 13:56 | Outpatient (ROUT) | payer MEDICARE, OTHER, SELFPAY ==
[2020-10-03 10:50] VITALS: BMI 30.3
[2021-02-17 05:01] VITALS: PULSE 93; RESP 18; O2SAT 99
[2021-10-03 14:04] LABS: Appearance Urine UA SL CLOUDY; Bilirubin Urine UA NEGATIVE (NEGATIVE); Color Urine UA RED; Glucose Urine UA NEGATIVE (Negative); Ketones Urine UA NEGATIVE (NEGATIVE); Leukocyte Esterase Urine UA 3+ (NEGATIVE); Nitrite Urine UA POSITIVE (Negative); Occult Blood Urine UA 3+ (Negative); Protein Urine UA 1+ (Negative); Specific Gravity Urine UA <=1.005 (1.000-1.035); Urobilinogen Urine UA 0.2 E.U./dL (0.2)
[2021-10-03 14:08] LABS: Bacteria Urine Moderate (10-30); Culture Indicated Urine Specimen Cultured; RBC Urine >100/HPF (0-5/HPF); Squamous Epithelial Cell Urine 1-5 /HPF (0-5/HPF); WBC Urine >100/HPF (0-5/HPF)
== END ==
PROVIDERS: Family Provider Internal Medicine; PCP Internal Medicine; Visit Provider Specialist
DX: N39.0 Urinary tract infection, site not specified (principal)
CPT/HCPCS: 81001; 87077; 87086; 87186

== ENCOUNTER → 2021-10-24 12:22 | Outpatient (ROUT) | payer MEDICARE, OTHER, SELFPAY ==
[2020-10-03 10:50] VITALS: BMI 30.3
[2021-02-17 05:01] VITALS: PULSE 93; RESP 18; O2SAT 99
== END ==
PROVIDERS: Family Provider Internal Medicine; PCP Internal Medicine; Visit Provider Specialist
DX: N39.0 Urinary tract infection, site not specified (principal)
CPT/HCPCS: 87077; 87086; 87186

== ENCOUNTER → 2021-11-14 13:15 | Outpatient (ROUT) | payer MEDICARE, OTHER, SELFPAY ==
[2020-10-03 10:50] VITALS: BMI 30.3
[2021-02-17 05:01] VITALS: PULSE 93; RESP 18; O2SAT 99
== END ==
PROVIDERS: Family Provider Internal Medicine; PCP Internal Medicine; Visit Provider Specialist
DX: N39.0 Urinary tract infection, site not specified (principal)
CPT/HCPCS: 87077; 87086; 87186

== ENCOUNTER → 2021-12-05 13:16 | Outpatient (ROUT) | payer MEDICARE, OTHER, SELFPAY ==
[2020-10-03 10:50] VITALS: BMI 30.3
[2021-02-17 05:01] VITALS: PULSE 93; RESP 18; O2SAT 99
== END ==
PROVIDERS: Family Provider Internal Medicine; PCP Internal Medicine; Visit Provider Specialist
DX: N39.0 Urinary tract infection, site not specified (principal)
CPT/HCPCS: 87077; 87086; 87186

== ENCOUNTER → 2021-12-26 13:24 | Outpatient (ROUT) | payer MEDICARE, OTHER, SELFPAY ==
[2020-10-03 10:50] VITALS: BMI 30.3
[2021-02-17 05:01] VITALS: PULSE 93; RESP 18; O2SAT 99
== END ==
PROVIDERS: Family Provider Internal Medicine; PCP Internal Medicine; Visit Provider Specialist
DX: N39.0 Urinary tract infection, site not specified (principal)
CPT/HCPCS: 87077; 87086; 87186

== ENCOUNTER → 2022-01-16 13:21 | Outpatient (ROUT) | payer MEDICARE, OTHER, SELFPAY ==
[2020-10-03 10:50] VITALS: BMI 30.3
[2021-02-17 05:01] VITALS: PULSE 93; RESP 18; O2SAT 99
== END ==
PROVIDERS: Family Provider Internal Medicine; PCP Internal Medicine; Visit Provider Specialist
DX: N39.0 Urinary tract infection, site not specified (principal)
CPT/HCPCS: 87077; 87086; 87186

== ENCOUNTER → 2022-02-06 13:09 | Outpatient (ROUT) | payer MEDICARE, OTHER, SELFPAY ==
[2020-10-03 10:50] VITALS: BMI 30.3
[2021-02-17 05:01] VITALS: PULSE 93; RESP 18; O2SAT 99
== END ==
PROVIDERS: Family Provider Internal Medicine; PCP Internal Medicine; Visit Provider Specialist
DX: N39.0 Urinary tract infection, site not specified (principal)
CPT/HCPCS: 87077; 87086; 87186

== ENCOUNTER → 2022-02-22 14:34 | Outpatient (CLI) | payer MEDICARE, OTHER, SELFPAY ==
[2020-10-03 10:50] VITALS: BMI 30.3
[2021-02-17 05:01] VITALS: PULSE 93; RESP 18; O2SAT 99
--- NOTE | 2022-02-22 14:38 | DI.RAD.S_ITS ---
PROCEDURE: XR KNEE RT 1TO2V INDICATIONS: R knee injury TECHNIQUE: 2 views of the knee were acquired. COMPARISON: [facility] [place], CR, XR KNEE 1 OR 2VW LT, 11/04/2015, 15:55. FINDINGS: Bones: No fractures or dislocations. No suspicious bony lesions. Mild tricompartmental knee joint space narrowing with periarticular osteophyte formation. Bones appear diffusely demineralized and have a somewhat mottled appearance. Soft tissues: Moderate joint effusion. No suspicious soft tissue calcifications. IMPRESSION: 1. No fracture or dislocation. 2. Tricompartmental knee joint degeneration. 3. The bones appear demineralized and have a mottled appearance. This is a nonspecific finding and could be secondary to pronounced demineralization however other etiologies such as metastatic disease, myeloma, or primary bone neoplasm are also possible. Note that the appearance is similar to the contralateral knee imaged in 2016. Dictated by: Jony Ji [facility] Interpreted: Ryan Alonso MD on 02/23/2022 at 15:20 Transcribed by: BROOKS on 02/23/2022 at 15:22 Approved by: Ryan Alonso M.D. on 02/23/2022 at 22:23
[2022-02-22 18:20] LABS: Alanine Aminotransferase 59 IU/L (<50); Albumin 4.2 g/dL (3.5-5.0); Albumin Globulin Ratio 1.5 (1.0-2.8); Alkaline Phosphatase 198 U/L (38-126); Aspartate Aminotransferase 55 IU/L (17-59); BUN Creatinine Ratio 12.8 (6-22); Bilirubin Total 0.5 mg/dL (0.2-1.3); Blood Urea Nitrogen 6 mg/dL (9-20); Calcium 9.2 mg/dL (8.4-10.2); Carbon Dioxide 29 mmol/L (22-32); Chloride 101 mmol/L (98-107); Estimated Glomerular Filt Rate > 60 mL/min (>60); Globulin 2.8 g/dL (1.7-4.1); Glucose 81 mg/dL (80-110); HEMOLYSIS < 15 (0-50); Potassium 4.1 mmol/L (3.4-5.1); Sodium 137 mmol/L (137-145)
[2022-02-22 18:35] LABS: Free T4, Direct Thyroxine 1.38 ng/dL (0.78-2.19)
[2022-02-22 18:55] LABS: Thyroid Stimulating Hormone < 0.015 uIU/mL (0.47-4.68)
== END ==
PROVIDERS: Family Provider Internal Medicine; PCP Internal Medicine; Referring Provider Internal Medicine; Visit Provider Internal Medicine
DX: M25.561 Pain in right knee (principal); E03.9 Hypothyroidism, unspecified; E78.2 Mixed hyperlipidemia; S89.91XA Unspecified injury of right lower leg, initial encounter; M17.11 Unilateral primary osteoarthritis, right knee; I10 Essential (primary) hypertension; X58.XXXA Exposure to other specified factors, initial encounter
CPT/HCPCS: 36415; 73562; 80053; 84439; 84443

== ENCOUNTER → 2022-02-28 13:44 | Outpatient (ROUT) | payer MEDICARE, OTHER, SELFPAY ==
[2020-10-03 10:50] VITALS: BMI 30.3
[2021-02-17 05:01] VITALS: PULSE 93; RESP 18; O2SAT 99
== END ==
PROVIDERS: Family Provider Internal Medicine; PCP Internal Medicine; Visit Provider Specialist
DX: N39.0 Urinary tract infection, site not specified (principal)
CPT/HCPCS: 87077; 87086; 87186

== ENCOUNTER → 2022-03-19 12:36 | Outpatient (ROUT) | payer MEDICARE, OTHER, SELFPAY ==
[2020-10-03 10:50] VITALS: BMI 30.3
[2021-02-17 05:01] VITALS: PULSE 93; RESP 18; O2SAT 99
[2022-03-19 12:56] LABS: Appearance Urine UA SL CLOUDY; Bilirubin Urine UA NEGATIVE (NEGATIVE); Color Urine UA YELLOW; Glucose Urine UA NEGATIVE (Negative); Ketones Urine UA NEGATIVE (NEGATIVE); Leukocyte Esterase Urine UA 3+ (NEGATIVE); Nitrite Urine UA POSITIVE (Negative); Occult Blood Urine UA TRACE-INTACT (Negative); Protein Urine UA NEGATIVE (Negative); Urobilinogen Urine UA 0.2 E.U./dL (0.2)
[2022-03-19 13:10] LABS: Bacteria Urine Moderate (10-30); Culture Indicated Urine Specimen Cultured; RBC Urine None Seen (0-5/HPF); Squamous Epithelial Cell Urine 1-5 /HPF (0-5/HPF); Transitional Epi Cells Urine 1-5/HPF (0-5/HPF); WBC Urine 10-30/HPF (0-5/HPF)
== END ==
PROVIDERS: Family Provider Internal Medicine; PCP Internal Medicine; Visit Provider Specialist
DX: N39.0 Urinary tract infection, site not specified (principal)
CPT/HCPCS: 81001; 87077; 87086; 87186

== ENCOUNTER → 2022-04-11 13:34 | Outpatient (ROUT) | payer MEDICARE, OTHER, SELFPAY ==
[2020-10-03 10:50] VITALS: BMI 30.3
[2021-02-17 05:01] VITALS: PULSE 93; RESP 18; O2SAT 99
== END ==
PROVIDERS: Family Provider Internal Medicine; PCP Internal Medicine; Visit Provider Specialist
DX: N39.0 Urinary tract infection, site not specified (principal)
CPT/HCPCS: 87077; 87086; 87186

== ENCOUNTER → 2022-05-01 13:42 | Outpatient (ROUT) | payer MEDICARE, OTHER, SELFPAY ==
[2020-10-03 10:50] VITALS: BMI 30.3
[2021-02-17 05:01] VITALS: PULSE 93; RESP 18; O2SAT 99
== END ==
PROVIDERS: Family Provider Internal Medicine; PCP Internal Medicine; Visit Provider Specialist
DX: N39.0 Urinary tract infection, site not specified (principal)
CPT/HCPCS: 87077; 87086; 87186

== ENCOUNTER → 2022-05-10 15:06 | Outpatient (CLI) | payer MEDICARE, OTHER, SELFPAY ==
[2020-10-03 10:50] VITALS: BMI 30.3
[2021-02-17 05:01] VITALS: PULSE 93; RESP 18; O2SAT 99
[2022-05-10 16:31] LABS: Prothrombin Time 10.9 SECONDS (10.1-12.7)
[2022-05-10 16:33] LABS: Add Manual Diff / Slide Review NO; Basophils Absolute Auto 0 /uL (0-100); Basophils Percent Auto 0.1 % (0-2); Eosinophils Absolute Auto 0 /uL (0-450); Hematocrit 44.9 % (41-53); Hemoglobin 15.1 g/dL (13.5-17.5); Lymphocytes Absolute Auto 300 /uL (1100-4500); Lymphocytes Percent Auto 8.2 % (25-40); Mean Corpuscular HGB Conc 33.7 % (30-36); Mean Corpuscular Hemoglobin 31.8 PG (26-34); Mean Corpuscular Volume 94.4 fL (80-100); Monocytes Absolute Auto 500 /uL (0-900); Neutrophils Absolute Auto 2800 /uL (1500-7000); Neutrophils Percent Auto 78.7 % (50-75); PTT Partial Thromboplastin Tim 34 SECONDS (26-36); Platelet Count 222 X10^3/uL (150-400); Red Blood Cell Count 4.75 X10^6/uL (4.5-5.9); Red Cell Distribution Width 15.6 % (11.6-14.8); White Blood Cell Count 3.6 X10^3/uL (4.5-11.0)
[2022-05-10 16:40] LABS: Alanine Aminotransferase 66 IU/L (<50); Albumin 4.4 g/dL (3.5-5.0); Albumin Globulin Ratio 1.3 (1.0-2.8); Alkaline Phosphatase 143 U/L (38-126); Aspartate Aminotransferase 52 IU/L (17-59); Bilirubin Total 0.4 mg/dL (0.2-1.3); Blood Urea Nitrogen 8 mg/dL (9-20); Calcium 9.2 mg/dL (8.4-10.2); Carbon Dioxide 28 mmol/L (22-32); Chloride 102 mmol/L (98-107); Estimated Glomerular Filt Rate > 60 mL/min (>60); Globulin 3.4 g/dL (1.7-4.1); Glucose 83 mg/dL (80-110); HEMOLYSIS 28 (0-50); Potassium 3.9 mmol/L (3.4-5.1); Sodium 138 mmol/L (137-145); Total Protein 7.8 g/dL (6.3-8.2)
[2022-05-11 18:06] LABS: Appearance Urine UA CLEAR; Bilirubin Urine UA NEGATIVE (NEGATIVE); Color Urine UA YELLOW; Glucose Urine UA NEGATIVE (Negative); Ketones Urine UA NEGATIVE (NEGATIVE); Leukocyte Esterase Urine UA 1+ (NEGATIVE); Nitrite Urine UA POSITIVE (Negative); Occult Blood Urine UA NEGATIVE (Negative); Protein Urine UA NEGATIVE (Negative); Urobilinogen Urine UA 0.2 E.U./dL (0.2)
[2022-05-11 18:12] LABS: Amorphous Sediment Urine 1+; Bacteria Urine Many (>30); Culture Indicated Urine Specimen Cultured; RBC Urine None Seen (0-5/HPF); WBC Urine 1-5/HPF (0-5/HPF)
[2022-05-15 14:35] LABS: Size 6x4 mm (.)
== END ==
PROVIDERS: Specialist; Family Provider Internal Medicine; PCP Internal Medicine; Referring Provider Neurological Surgery; Visit Provider Neurological Surgery
DX: Z01.818 Encounter for other preprocedural examination (principal); R25.2 Cramp and spasm; M62.838 Other muscle spasm; N20.0 Calculus of kidney
CPT/HCPCS: 36415; 80053; 81001; 82365; 85025; 85610; 85730; 87077; 87086; 87186; 93005

== ENCOUNTER → 2022-05-22 13:38 | Outpatient (ROUT) | payer MEDICARE, OTHER, SELFPAY ==
[2020-10-03 10:50] VITALS: BMI 30.3
[2021-02-17 05:01] VITALS: PULSE 93; RESP 18; O2SAT 99
[2022-05-22 13:46] LABS: Appearance Urine UA CLEAR; Bilirubin Urine UA NEGATIVE (NEGATIVE); Color Urine UA YELLOW; Glucose Urine UA NEGATIVE (Negative); Ketones Urine UA NEGATIVE (NEGATIVE); Leukocyte Esterase Urine UA TRACE (NEGATIVE); Nitrite Urine UA NEGATIVE (Negative); Occult Blood Urine UA NEGATIVE (Negative); Protein Urine UA NEGATIVE (Negative); Specific Gravity Urine UA <=1.005 (1.000-1.035); Urobilinogen Urine UA 0.2 E.U./dL (0.2)
[2022-05-22 13:57] LABS: Bacteria Urine None Seen; Culture Indicated Urine Specimen Cultured; RBC Urine None Seen (0-5/HPF); WBC Urine None Seen (0-5/HPF)
== END ==
PROVIDERS: Family Provider Internal Medicine; PCP Internal Medicine; Visit Provider Specialist
DX: N39.0 Urinary tract infection, site not specified (principal)
CPT/HCPCS: 81001; 87086

== ENCOUNTER → 2022-06-12 11:57 | Outpatient (ROUT) | payer MEDICARE, OTHER, SELFPAY ==
[2020-10-03 10:50] VITALS: BMI 30.3
[2021-02-17 05:01] VITALS: PULSE 93; RESP 18; O2SAT 99
== END ==
PROVIDERS: Family Provider Internal Medicine; PCP Internal Medicine; Visit Provider Specialist
DX: N39.0 Urinary tract infection, site not specified (principal)
CPT/HCPCS: 87077; 87086; 87186

== ENCOUNTER → 2022-07-03 11:43 | Outpatient (ROUT) | payer MEDICARE, OTHER, SELFPAY ==
[2020-10-03 10:50] VITALS: BMI 30.3
[2021-02-17 05:01] VITALS: PULSE 93; RESP 18; O2SAT 99
== END ==
PROVIDERS: Family Provider Internal Medicine; PCP Internal Medicine; Visit Provider Specialist
DX: N39.0 Urinary tract infection, site not specified (principal)
CPT/HCPCS: 87077; 87086; 87186

== ENCOUNTER → 2022-07-24 16:39 | Outpatient (ROUT) | payer MEDICARE, OTHER, SELFPAY ==
[2020-10-03 10:50] VITALS: BMI 30.3
[2021-02-17 05:01] VITALS: PULSE 93; RESP 18; O2SAT 99
== END ==
PROVIDERS: Family Provider Internal Medicine; PCP Internal Medicine; Visit Provider Specialist
DX: N39.0 Urinary tract infection, site not specified (principal)
CPT/HCPCS: 87077; 87086; 87186

== ENCOUNTER → 2022-08-14 13:51 | Outpatient (CLI) | payer MEDICARE, OTHER, SELFPAY ==
[2020-10-03 10:50] VITALS: BMI 30.3
[2021-02-17 05:01] VITALS: PULSE 93; RESP 18; O2SAT 99
[2022-08-14 15:13] LABS: Appearance Urine UA CLEAR; Bilirubin Urine UA NEGATIVE (NEGATIVE); Color Urine UA YELLOW; Glucose Urine UA NEGATIVE (Negative); Ketones Urine UA NEGATIVE (NEGATIVE); Leukocyte Esterase Urine UA 3+ (NEGATIVE); Nitrite Urine UA NEGATIVE (Negative); Occult Blood Urine UA TRACE-INTACT (Negative); Protein Urine UA NEGATIVE (Negative); Urobilinogen Urine UA 0.2 E.U./dL (0.2); pH Urine UA 7.5 (4.5-8.0)
[2022-08-14 15:28] LABS: RBC Urine None Seen (0-5/HPF); Squamous Epithelial Cell Urine 5-10 /HPF (0-5/HPF); WBC Urine 10-30/HPF (0-5/HPF)
[2022-08-14 15:29] LABS: Bacteria Urine Few (2-10); Culture Indicated Urine Specimen Cultured
== END ==
PROVIDERS: Family Provider Internal Medicine; PCP Internal Medicine; Referring Provider Internal Medicine; Visit Provider Internal Medicine
DX: N39.0 Urinary tract infection, site not specified (principal); Z96.0 Presence of urogenital implants
CPT/HCPCS: 81001; 87077; 87086; 87186

== ENCOUNTER → 2022-09-04 11:36 | Outpatient (CLI) | payer MEDICARE, OTHER, SELFPAY ==
[2020-10-03 10:50] VITALS: BMI 30.3
[2021-02-17 05:01] VITALS: PULSE 93; RESP 18; O2SAT 99
[2022-09-04 12:50] LABS: Appearance Urine UA CLEAR; Bilirubin Urine UA NEGATIVE (NEGATIVE); Color Urine UA YELLOW; Glucose Urine UA NEGATIVE (Negative); Ketones Urine UA NEGATIVE (NEGATIVE); Leukocyte Esterase Urine UA 1+ (NEGATIVE); Nitrite Urine UA NEGATIVE (Negative); Occult Blood Urine UA 3+ (Negative); Protein Urine UA NEGATIVE (Negative); Specific Gravity Urine UA <=1.005 (1.000-1.035); Urobilinogen Urine UA 0.2 E.U./dL (0.2); pH Urine UA 6.5 (4.5-8.0)
[2022-09-04 13:12] LABS: Bacteria Urine Occasional (0-1); Culture Indicated Urine Specimen Cultured; RBC Urine 5-10/HPF (0-5/HPF); Squamous Epithelial Cell Urine 1-5 /HPF (0-5/HPF); WBC Urine 1-5/HPF (0-5/HPF)
== END ==
PROVIDERS: Family Provider Internal Medicine; PCP Internal Medicine; Referring Provider Specialist; Visit Provider Specialist
DX: Z97.8 Presence of other specified devices (principal)
CPT/HCPCS: 81001; 87077; 87086; 87186

== ENCOUNTER → 2022-09-11 15:06 | Outpatient (CLI) | payer MEDICARE, OTHER, SELFPAY ==
[2020-10-03 10:50] VITALS: BMI 30.3
[2021-02-17 05:01] VITALS: PULSE 93; RESP 18; O2SAT 99
--- NOTE | 2022-09-11 15:25 | DI.CT.S_ITS ---
PROCEDURE: CT KIDNEY URETER BLADDER (KUB) INDICATIONS: recurrent UTI TECHNIQUE: Axial sections were acquired from the lung bases to the pubic symphysis. Coronal and sagittal reformats were performed. For radiation dose reduction, the following was used: automated exposure control, adjustment of mA and/or kV according to patient size. COMPARISON: [facility], CR, THORACIC SPINE 3 VIEWS, 08/05/2012, 15:00. [facility], CR, L-SPINE 2-3 VIEWS, 08/05/2012, 15:00. [facility], CR, XR CHEST 1V, 02/17/2021, 5:07. [facility], CT, CT ABDOMEN PELVIS W CON, 03/01/2019, 17:22. FINDINGS: Image quality: Excellent. Lung bases: Right hemidiaphragm elevation. Bibasilar scars and atelectasis. Heart: No significant findings. URINARY: Right Kidney: No stones or hydronephrosis. Right Ureter: No hydroureter. Left Kidney: No stones or hydronephrosis. Left Ureter: No hydroureter. Bladder: Normal wall thickness. No stones. There is a Camargo catheter with the tip within the penile urethra. ABDOMEN: Liver: Unremarkable. Gallbladder: There are multiple gallstones. No gallbladder wall thickening or pericholecystic fluid Biliary ducts: Unremarkable. Pancreas: Unremarkable. Spleen: Unremarkable. Adrenal Glands: Unremarkable. Stomach and Bowel: Stomach, small bowel loops, and colon are normal in caliber. Diverticulosis without acute diverticulitis. There is a large amount of stool in colon. Peritoneum: No abnormal intraperitoneal fluid. No free air. Ventral Wall: No hernia. Abdominal Nodes: No enlarged retroperitoneal or mesenteric lymph nodes. Vessels: Aorta and inferior vena cava are normal in size. PELVIS: Pelvic Organs: Unremarkable. Pelvic Nodes: Unremarkable. Miscellaneous: No inguinal hernias are seen. Bones: Diffuse osteopenia. Prominent bridging osteophytes are seen in the thoracic and lumbar spine. There is partial ankylosis of sacroiliac joints bilaterally. The findings suggest ankylosing spondylitis. There is a nerve stimulator. IMPRESSION: 1. A cause for recurrent UTI is not identified on CT. 2. No renal stones or hydronephrosis. 3. Camargo catheter tip within the penile urethra. Recommend repositioning. 4. Diverticulosis without acute diverticulitis. 5. Cholelithiasis. 6. A large amount of stool in colon. 7. Diffuse osteopenia. 8. Diffuse bridging osteophytes in thoracic and lumbar spine coupled with partial ankylosis of SI joints bilaterally suggesting ankylosing spondylitis. Please correlate with serum markers. Dictated by: Uvaldo Leigh M.D. on 09/13/2022 at 8:56 Approved by: Uvaldo Leigh M.D. on 09/13/2022 at 9:14
== END ==
PROVIDERS: Family Provider Internal Medicine; PCP Internal Medicine; Referring Provider Specialist; Visit Provider Specialist
DX: N31.9 Neuromuscular dysfunction of bladder, unspecified (principal); N39.0 Urinary tract infection, site not specified; K57.90 Diverticulosis of intestine, part unspecified, without perforation or abscess without bleeding; K80.20 Calculus of gallbladder without cholecystitis without obstruction; M85.89 Other specified disorders of bone density and structure, multiple sites; M25.78 Osteophyte, vertebrae
CPT/HCPCS: 74176

== ENCOUNTER → 2022-09-25 09:57 | Outpatient (CLI) | payer MEDICARE, OTHER, SELFPAY ==
[2020-10-03 10:50] VITALS: BMI 30.3
[2021-02-17 05:01] VITALS: PULSE 93; RESP 18; O2SAT 99
== END ==
PROVIDERS: Family Provider Internal Medicine; PCP Internal Medicine; Visit Provider Specialist
DX: N39.0 Urinary tract infection, site not specified (principal)
CPT/HCPCS: 87077; 87086; 87186

== ENCOUNTER → 2022-10-16 11:01 | Outpatient (ROUT) | payer MEDICARE, OTHER, SELFPAY ==
[2022-10-11 11:37] VITALS: PULSE 93; RESP 18; O2SAT 99; BMI 30.3
[2022-10-16 11:24] LABS: Appearance Urine UA CLEAR; Bilirubin Urine UA NEGATIVE (NEGATIVE); Color Urine UA YELLOW; Glucose Urine UA NEGATIVE (Negative); Ketones Urine UA NEGATIVE (NEGATIVE); Leukocyte Esterase Urine UA 2+ (NEGATIVE); Nitrite Urine UA NEGATIVE (Negative); Occult Blood Urine UA TRACE-INTACT (Negative); Protein Urine UA NEGATIVE (Negative); Specific Gravity Urine UA <=1.005 (1.000-1.035); Urobilinogen Urine UA 0.2 E.U./dL (0.2)
[2022-10-16 11:31] LABS: Bacteria Urine Moderate (10-30); RBC Urine None Seen (0-5/HPF); WBC Urine 10-30/HPF (0-5/HPF)
== END ==
PROVIDERS: Family Provider Internal Medicine; PCP Internal Medicine; Visit Provider Specialist
DX: N31.9 Neuromuscular dysfunction of bladder, unspecified (principal); N39.0 Urinary tract infection, site not specified; R33.9 Retention of urine, unspecified
CPT/HCPCS: 81001; 87077; 87086; 87186

== ENCOUNTER → 2022-11-06 15:01 | Outpatient (ROUT) | payer MEDICARE, OTHER, SELFPAY ==
[2022-10-11 11:37] VITALS: PULSE 93; RESP 18; O2SAT 99; BMI 30.3
== END ==
PROVIDERS: Family Provider Internal Medicine; PCP Internal Medicine; Visit Provider Specialist
DX: N39.0 Urinary tract infection, site not specified (principal)
CPT/HCPCS: 87077; 87086; 87186

== ENCOUNTER → 2022-11-27 11:19 | Outpatient (ROUT) | payer MEDICARE, OTHER, SELFPAY ==
[2022-10-11 11:37] VITALS: PULSE 93; RESP 18; O2SAT 99; BMI 30.3
[2022-11-27 11:30] LABS: Appearance Urine UA CLEAR; Bilirubin Urine UA NEGATIVE (NEGATIVE); Color Urine UA YELLOW; Glucose Urine UA NEGATIVE (Negative); Ketones Urine UA TRACE (NEGATIVE); Leukocyte Esterase Urine UA 1+ (NEGATIVE); Nitrite Urine UA NEGATIVE (Negative); Occult Blood Urine UA 1+ (Negative); Protein Urine UA TRACE (Negative); Specific Gravity Urine UA <=1.005 (1.000-1.035); Urobilinogen Urine UA 0.2 E.U./dL (0.2)
[2022-11-27 11:45] LABS: Bacteria Urine Few (2-10); Culture Indicated Urine Cult Not Indicated; RBC Urine None Seen (0-5/HPF); Squamous Epithelial Cell Urine 0-1 /HPF (0-5/HPF); WBC Urine 1-5/HPF (0-5/HPF)
== END ==
PROVIDERS: Family Provider Internal Medicine; PCP Internal Medicine; Visit Provider Specialist
DX: N39.0 Urinary tract infection, site not specified (principal)
CPT/HCPCS: 81001; 87077; 87086; 87186

== ENCOUNTER → 2022-12-18 13:14 | Outpatient (ROUT) | payer MEDICARE, OTHER, SELFPAY ==
[2022-10-11 11:37] VITALS: PULSE 93; RESP 18; O2SAT 99; BMI 30.3
[2022-12-18 13:20] LABS: Appearance Urine UA SL CLOUDY; Bilirubin Urine UA NEGATIVE (NEGATIVE); Color Urine UA YELLOW; Glucose Urine UA NEGATIVE (Negative); Ketones Urine UA NEGATIVE (NEGATIVE); Leukocyte Esterase Urine UA 1+ (NEGATIVE); Nitrite Urine UA NEGATIVE (Negative); Occult Blood Urine UA 3+ (Negative); Protein Urine UA TRACE (Negative); Urobilinogen Urine UA 0.2 E.U./dL (0.2); pH Urine UA 7.5 (4.5-8.0)
[2022-12-18 13:31] LABS: Bacteria Urine Few (2-10); Culture Indicated Urine Specimen Cultured; RBC Urine 10-30/HPF (0-5/HPF); Squamous Epithelial Cell Urine 1-5 /HPF (0-5/HPF); WBC Urine 1-5/HPF (0-5/HPF)
== END ==
PROVIDERS: Family Provider Internal Medicine; PCP Internal Medicine; Visit Provider Specialist
DX: N39.0 Urinary tract infection, site not specified (principal)
CPT/HCPCS: 81001; 87077; 87086; 87186

== ENCOUNTER → 2023-01-01 14:21 | Outpatient (ROUT) | payer MEDICARE, OTHER, SELFPAY ==
[2022-10-11 11:37] VITALS: PULSE 93; RESP 18; O2SAT 99; BMI 30.3
[2023-01-01 14:28] LABS: Appearance Urine UA SL CLOUDY; Bilirubin Urine UA NEGATIVE (NEGATIVE); Color Urine UA YELLOW; Glucose Urine UA NEGATIVE (Negative); Ketones Urine UA NEGATIVE (NEGATIVE); Leukocyte Esterase Urine UA TRACE (NEGATIVE); Nitrite Urine UA NEGATIVE (Negative); Occult Blood Urine UA 3+ (Negative); Protein Urine UA 2+ (Negative); pH Urine UA 7.5 (4.5-8.0)
[2023-01-01 14:39] LABS: Bacteria Urine Occasional (0-1); Culture Indicated Urine Specimen Cultured; RBC Urine 10-30/HPF (0-5/HPF); Squamous Epithelial Cell Urine 1-5 /HPF (0-5/HPF); WBC Urine 1-5/HPF (0-5/HPF)
== END ==
PROVIDERS: Family Provider Internal Medicine; PCP Internal Medicine; Visit Provider Specialist
DX: N39.0 Urinary tract infection, site not specified (principal)
CPT/HCPCS: 81001; 87077; 87086; 87186

== ENCOUNTER → 2023-01-22 10:25 | Outpatient (ROUT) | payer MEDICARE, OTHER, SELFPAY ==
[2022-10-11 11:37] VITALS: PULSE 93; RESP 18; O2SAT 99; BMI 30.3
[2023-01-22 10:55] LABS: Appearance Urine UA CLEAR; Bilirubin Urine UA NEGATIVE (NEGATIVE); Color Urine UA YELLOW; Glucose Urine UA NEGATIVE (Negative); Ketones Urine UA NEGATIVE (NEGATIVE); Leukocyte Esterase Urine UA 1+ (NEGATIVE); Nitrite Urine UA NEGATIVE (Negative); Occult Blood Urine UA 2+ (Negative); Protein Urine UA 2+ (Negative); Urobilinogen Urine UA 0.2 E.U./dL (0.2)
[2023-01-22 11:19] LABS: RBC Urine 10-30/HPF (0-5/HPF)
[2023-01-22 11:20] LABS: Amorphous Sediment Urine 1+; Bacteria Urine Moderate (10-30); Culture Indicated Urine Specimen Cultured; Squamous Epithelial Cell Urine None Seen (0-5/HPF); WBC Urine 5-10/HPF (0-5/HPF)
== END ==
PROVIDERS: Family Provider Internal Medicine; PCP Internal Medicine; Visit Provider Specialist
DX: N39.0 Urinary tract infection, site not specified (principal)
CPT/HCPCS: 81001; 87077; 87086; 87186

== ENCOUNTER → 2023-02-12 12:41 | Outpatient (ROUT) | payer MEDICARE, OTHER, SELFPAY ==
[2022-10-11 11:37] VITALS: PULSE 93; RESP 18; O2SAT 99; BMI 30.3
[2023-02-12 12:50] LABS: Appearance Urine UA CLOUDY; Bilirubin Urine UA NEGATIVE (NEGATIVE); Color Urine UA YELLOW; Glucose Urine UA NEGATIVE (Negative); Ketones Urine UA NEGATIVE (NEGATIVE); Leukocyte Esterase Urine UA 1+ (NEGATIVE); Nitrite Urine UA POSITIVE (Negative); Occult Blood Urine UA 2+ (Negative); Protein Urine UA 3+ (Negative); Specific Gravity Urine UA >=1.030 (1.000-1.035); Urobilinogen Urine UA 0.2 E.U./dL (0.2); pH Urine UA 5.5 (4.5-8.0)
[2023-02-12 13:04] LABS: RBC Urine 5-10/HPF (0-5/HPF)
[2023-02-12 13:05] LABS: Bacteria Urine Many (>30); Culture Indicated Urine Specimen Cultured; Mucus Urine 2+ (Negative); Squamous Epithelial Cell Urine 1-5 /HPF (0-5/HPF); WBC Urine 30-100/HPF (0-5/HPF)
== END ==
PROVIDERS: Family Provider Internal Medicine; PCP Internal Medicine; Visit Provider Specialist
DX: N39.0 Urinary tract infection, site not specified (principal)
CPT/HCPCS: 81001; 87077; 87086; 87186

== ENCOUNTER → 2023-03-04 13:07 | Outpatient (ROUT) | payer MEDICARE, OTHER, SELFPAY ==
[2022-10-11 11:37] VITALS: PULSE 93; RESP 18; O2SAT 99; BMI 30.3
[2023-03-04 13:16] LABS: Appearance Urine UA CLEAR; Bilirubin Urine UA NEGATIVE (NEGATIVE); Color Urine UA YELLOW; Glucose Urine UA NEGATIVE (Negative); Ketones Urine UA NEGATIVE (NEGATIVE); Leukocyte Esterase Urine UA NEGATIVE (NEGATIVE); Nitrite Urine UA NEGATIVE (Negative); Occult Blood Urine UA 2+ (Negative); Protein Urine UA NEGATIVE (Negative); Specific Gravity Urine UA <=1.005 (1.000-1.035); Urobilinogen Urine UA 0.2 E.U./dL (0.2)
[2023-03-04 13:20] LABS: Bacteria Urine None Seen; Culture Indicated Urine Cult Not Indicated; RBC Urine 0-1/HPF (0-5/HPF); Squamous Epithelial Cell Urine None Seen (0-5/HPF); WBC Urine None Seen (0-5/HPF)
== END ==
PROVIDERS: Family Provider Internal Medicine; PCP Internal Medicine; Visit Provider Specialist
DX: N39.0 Urinary tract infection, site not specified (principal)
CPT/HCPCS: 81001

== ENCOUNTER → 2023-03-26 14:43 | Outpatient (ROUT) | payer MEDICARE, OTHER, SELFPAY ==
[2022-10-11 11:37] VITALS: PULSE 93; RESP 18; O2SAT 99; BMI 30.3
[2023-03-26 14:55] LABS: Appearance Urine UA CLOUDY; Bilirubin Urine UA NEGATIVE (NEGATIVE); Color Urine UA YELLOW; Glucose Urine UA NEGATIVE (Negative); Ketones Urine UA NEGATIVE (NEGATIVE); Leukocyte Esterase Urine UA 1+ (NEGATIVE); Nitrite Urine UA NEGATIVE (Negative); Occult Blood Urine UA 3+ (Negative); Protein Urine UA 3+ (Negative); Specific Gravity Urine UA >=1.030 (1.000-1.035); pH Urine UA 6.5 (4.5-8.0)
[2023-03-26 15:22] LABS: Bacteria Urine None Seen; RBC Urine 30-100/HPF (0-5/HPF); WBC Urine 5-10/HPF (0-5/HPF)
[2023-03-26 15:23] LABS: Culture Indicated Urine Specimen Cultured; Squamous Epithelial Cell Urine 0-1 /HPF (0-5/HPF)
== END ==
PROVIDERS: Family Provider Internal Medicine; PCP Internal Medicine; Visit Provider Specialist
DX: N39.0 Urinary tract infection, site not specified (principal)
CPT/HCPCS: 81001; 87077; 87086; 87186

== ENCOUNTER → 2023-04-16 12:37 | Outpatient (ROUT) | payer MEDICARE, OTHER, SELFPAY ==
[2022-10-11 11:37] VITALS: PULSE 93; RESP 18; O2SAT 99; BMI 30.3
[2023-04-16 12:44] LABS: Appearance Urine UA SL CLOUDY; Bilirubin Urine UA NEGATIVE (NEGATIVE); Color Urine UA YELLOW; Glucose Urine UA NEGATIVE (Negative); Ketones Urine UA NEGATIVE (NEGATIVE); Leukocyte Esterase Urine UA 2+ (NEGATIVE); Nitrite Urine UA NEGATIVE (Negative); Occult Blood Urine UA 3+ (Negative); Protein Urine UA 2+ (Negative); Urobilinogen Urine UA 0.2 E.U./dL (0.2); pH Urine UA 6.5 (4.5-8.0)
[2023-04-16 12:55] LABS: RBC Urine 30-100/HPF (0-5/HPF)
[2023-04-16 12:56] LABS: Bacteria Urine Moderate (10-30); Culture Indicated Urine Specimen Cultured; Squamous Epithelial Cell Urine 1-5 /HPF (0-5/HPF); WBC Urine 10-30/HPF (0-5/HPF)
== END ==
PROVIDERS: Family Provider Internal Medicine; PCP Internal Medicine; Visit Provider Specialist
DX: N39.0 Urinary tract infection, site not specified (principal)
CPT/HCPCS: 81001; 87077; 87086; 87186

== ENCOUNTER → 2023-05-10 13:03 | Outpatient (ROUT) | payer MEDICARE, OTHER, SELFPAY ==
[2022-10-11 11:37] VITALS: PULSE 93; RESP 18; O2SAT 99; BMI 30.3
[2023-05-10 13:12] LABS: Appearance Urine UA SL CLOUDY; Bilirubin Urine UA NEGATIVE (NEGATIVE); Color Urine UA YELLOW; Glucose Urine UA NEGATIVE (Negative); Ketones Urine UA NEGATIVE (NEGATIVE); Leukocyte Esterase Urine UA 3+ (NEGATIVE); Nitrite Urine UA POSITIVE (Negative); Occult Blood Urine UA 3+ (Negative); Protein Urine UA NEGATIVE (Negative); Specific Gravity Urine UA <=1.005 (1.000-1.035); Urobilinogen Urine UA 0.2 E.U./dL (0.2); pH Urine UA 5.5 (4.5-8.0)
[2023-05-10 13:15] LABS: Bacteria Urine Many (>30); RBC Urine 5-10/HPF (0-5/HPF); Squamous Epithelial Cell Urine 0-1 /HPF (0-5/HPF); WBC Urine 10-30/HPF (0-5/HPF)
== END ==
PROVIDERS: Family Provider Internal Medicine; PCP Internal Medicine; Visit Provider Specialist
DX: N39.0 Urinary tract infection, site not specified (principal)
CPT/HCPCS: 81001; 87077; 87086; 87186

== ENCOUNTER → 2023-05-28 12:07 | Outpatient (ROUT) | payer MEDICARE, OTHER, SELFPAY ==
[2022-10-11 11:37] VITALS: PULSE 93; RESP 18; O2SAT 99; BMI 30.3
[2023-05-28 12:14] LABS: Appearance Urine UA CLEAR; Bilirubin Urine UA NEGATIVE (NEGATIVE); Color Urine UA YELLOW; Glucose Urine UA NEGATIVE (Negative); Ketones Urine UA NEGATIVE (NEGATIVE); Leukocyte Esterase Urine UA 3+ (NEGATIVE); Nitrite Urine UA NEGATIVE (Negative); Occult Blood Urine UA 1+ (Negative); Protein Urine UA 1+ (Negative); Specific Gravity Urine UA <=1.005 (1.000-1.035); Urobilinogen Urine UA 0.2 E.U./dL (0.2); pH Urine UA 5.5 (4.5-8.0)
[2023-05-28 12:26] LABS: Bacteria Urine Occasional (0-1); RBC Urine 1-5/HPF (0-5/HPF); WBC Urine 1-5/HPF (0-5/HPF)
[2023-05-28 12:27] LABS: Amorphous Sediment Urine 1+; Culture Indicated Urine Specimen Cultured; Squamous Epithelial Cell Urine 1-5 /HPF (0-5/HPF)
== END ==
PROVIDERS: Family Provider Internal Medicine; PCP Internal Medicine; Visit Provider Specialist
DX: N39.0 Urinary tract infection, site not specified (principal)
CPT/HCPCS: 81001; 87077; 87086; 87186

== ENCOUNTER → 2023-07-02 13:23 | Outpatient (ROUT) | payer MEDICARE, OTHER, SELFPAY ==
[2022-10-11 11:37] VITALS: PULSE 93; RESP 18; O2SAT 99; BMI 30.3
[2023-07-02 13:39] LABS: Appearance Urine UA CLEAR; Bilirubin Urine UA NEGATIVE (NEGATIVE); Color Urine UA YELLOW; Glucose Urine UA NEGATIVE (Negative); Ketones Urine UA NEGATIVE (NEGATIVE); Leukocyte Esterase Urine UA 1+ (NEGATIVE); Nitrite Urine UA POSITIVE (Negative); Occult Blood Urine UA NEGATIVE (Negative); Protein Urine UA NEGATIVE (Negative); Urobilinogen Urine UA 0.2 E.U./dL (0.2)
[2023-07-02 16:06] LABS: Bacteria Urine Many (>30); RBC Urine None Seen (0-5/HPF); Squamous Epithelial Cell Urine 1-5 /HPF (0-5/HPF); WBC Urine 10-30/HPF (0-5/HPF); White Blood Cell Casts Urine 0-1/LPF
== END ==
PROVIDERS: Family Provider Internal Medicine; PCP Internal Medicine; Visit Provider Specialist
DX: N39.0 Urinary tract infection, site not specified (principal)
CPT/HCPCS: 81001; 87077; 87086; 87186

== ENCOUNTER → 2023-07-23 15:02 | Outpatient (ROUT) | payer MEDICARE, OTHER, SELFPAY ==
[2022-10-11 11:37] VITALS: PULSE 93; RESP 18; O2SAT 99; BMI 30.3
[2023-07-23 16:16] LABS: Appearance Urine UA CLEAR; Bilirubin Urine UA NEGATIVE (NEGATIVE); Color Urine UA YELLOW; Glucose Urine UA NEGATIVE (Negative); Ketones Urine UA NEGATIVE (NEGATIVE); Leukocyte Esterase Urine UA 1+ (NEGATIVE); Nitrite Urine UA POSITIVE (Negative); Occult Blood Urine UA 2+ (Negative); Protein Urine UA 3+ (Negative); Specific Gravity Urine UA >=1.030 (1.000-1.035); Urobilinogen Urine UA 0.2 E.U./dL (0.2); pH Urine UA 6.5 (4.5-8.0)
[2023-07-23 16:25] LABS: Bacteria Urine Many (>30); RBC Urine 10-30/HPF (0-5/HPF); Squamous Epithelial Cell Urine 5-10 /HPF (0-5/HPF); WBC Urine 10-30/HPF (0-5/HPF)
[2023-07-23 16:26] LABS: Culture Indicated Urine Specimen Cultured; Mucus Urine 1+ (Negative)
== END ==
PROVIDERS: Family Provider Internal Medicine; PCP Internal Medicine; Visit Provider Specialist
DX: N39.0 Urinary tract infection, site not specified (principal)
CPT/HCPCS: 81001; 87077; 87086; 87186

== ENCOUNTER → 2023-08-13 15:12 | Outpatient (ROUT) | payer MEDICARE, OTHER, SELFPAY ==
[2022-10-11 11:37] VITALS: PULSE 93; RESP 18; O2SAT 99; BMI 30.3
[2023-08-13 15:43] LABS: Appearance Urine UA CLEAR; Bilirubin Urine UA NEGATIVE (NEGATIVE); Color Urine UA YELLOW; Glucose Urine UA NEGATIVE (Negative); Ketones Urine UA NEGATIVE (NEGATIVE); Leukocyte Esterase Urine UA 3+ (NEGATIVE); Nitrite Urine UA NEGATIVE (Negative); Occult Blood Urine UA 1+ (Negative); Protein Urine UA 2+ (Negative); Specific Gravity Urine UA <=1.005 (1.000-1.035); Urobilinogen Urine UA 0.2 E.U./dL (0.2); pH Urine UA 6.5 (4.5-8.0)
[2023-08-13 16:04] LABS: Bacteria Urine Few (2-10); Culture Indicated Urine Cult Not Indicated; RBC Urine 1-5/HPF (0-5/HPF); Squamous Epithelial Cell Urine 10-30 /HPF (0-5/HPF); Urine Volume 10mL (spun); WBC Urine 10-30/HPF (0-5/HPF)
== END ==
PROVIDERS: Family Provider Internal Medicine; PCP Internal Medicine; Visit Provider Specialist
DX: N39.0 Urinary tract infection, site not specified (principal)
CPT/HCPCS: 81001; 87077; 87086; 87186

== ENCOUNTER → 2023-08-22 15:42 | Outpatient (CLI) | payer MEDICARE, OTHER, SELFPAY ==
[2022-10-11 11:37] VITALS: PULSE 93; RESP 18; O2SAT 99; BMI 30.3
[2023-08-22 19:30] LABS: Thyroid Stimulating Hormone < 0.015 uIU/mL (0.47-4.68)
== END ==
PROVIDERS: Family Provider Internal Medicine; PCP Internal Medicine; Referring Provider Internal Medicine; Visit Provider Internal Medicine
DX: I10 Essential (primary) hypertension (principal); E03.9 Hypothyroidism, unspecified; E78.2 Mixed hyperlipidemia; E53.8 Deficiency of other specified B group vitamins
CPT/HCPCS: 36415; 84439; 84443

== ENCOUNTER → 2023-08-29 14:58 | Outpatient (CLI) | payer MEDICARE, OTHER, SELFPAY ==
[2022-10-11 11:37] VITALS: PULSE 93; RESP 18; O2SAT 99; BMI 30.3
[2023-08-29 16:57] LABS: Alanine Aminotransferase 57 IU/L (<50); Albumin 4.1 g/dL (3.5-5.0); Albumin Globulin Ratio 1.5 (1.0-2.8); Alkaline Phosphatase 115 U/L (38-126); Aspartate Aminotransferase 47 IU/L (17-59); BUN Creatinine Ratio 22.6 (6-22); Bilirubin Total 0.6 mg/dL (0.2-1.3); Blood Urea Nitrogen 7 mg/dL (9-20); Calcium 9.5 mg/dL (8.4-10.2); Carbon Dioxide 26 mmol/L (22-32); Chloride 104 mmol/L (98-107); Estimated Glomerular Filt Rate > 60 mL/min (>60); Globulin 2.7 g/dL (1.7-4.1); Glucose 87 mg/dL (80-110); HEMOLYSIS < 15 (0-50); Potassium 3.7 mmol/L (3.4-5.1); Sodium 138 mmol/L (137-145); Total Protein 6.8 g/dL (6.3-8.2)
[2023-08-29 17:45] LABS: Vitamin B12 876 pg/mL (239-931)
== END ==
PROVIDERS: Family Provider Internal Medicine; PCP Internal Medicine; Referring Provider Internal Medicine; Visit Provider Internal Medicine
DX: I10 Essential (primary) hypertension (principal); E78.2 Mixed hyperlipidemia; E03.9 Hypothyroidism, unspecified; E53.8 Deficiency of other specified B group vitamins
CPT/HCPCS: 36415; 80053; 82607

== ENCOUNTER → 2023-09-03 15:47 | Outpatient (ROUT) | payer MEDICARE, OTHER, SELFPAY ==
[2022-10-11 11:37] VITALS: PULSE 93; RESP 18; O2SAT 99; BMI 30.3
[2023-09-03 15:52] LABS: Appearance Urine UA SL CLOUDY; Bilirubin Urine UA NEGATIVE (NEGATIVE); Color Urine UA YELLOW; Glucose Urine UA NEGATIVE (Negative); Ketones Urine UA NEGATIVE (NEGATIVE); Leukocyte Esterase Urine UA NEGATIVE (NEGATIVE); Nitrite Urine UA POSITIVE (Negative); Occult Blood Urine UA 2+ (Negative); Protein Urine UA 3+ (Negative); Specific Gravity Urine UA >=1.030 (1.000-1.035); Urobilinogen Urine UA 0.2 E.U./dL (0.2)
[2023-09-03 16:01] LABS: Bacteria Urine Moderate (10-30); Culture Indicated Urine Specimen Cultured; RBC Urine 5-10/HPF (0-5/HPF); Squamous Epithelial Cell Urine 1-5 /HPF (0-5/HPF); Urine Volume 10mL (spun); WBC Urine 1-5/HPF (0-5/HPF)
== END ==
PROVIDERS: Family Provider Internal Medicine; PCP Internal Medicine; Visit Provider Specialist
DX: N39.0 Urinary tract infection, site not specified (principal)
CPT/HCPCS: 81001; 87077; 87086; 87186

== ENCOUNTER → 2023-09-30 11:23 | Outpatient (ROUT) | payer MEDICARE, OTHER, SELFPAY ==
[2023-09-23 13:00] VITALS: PULSE 93; RESP 18; O2SAT 99; BMI 30.3
[2023-09-30 11:40] LABS: Appearance Urine UA CLEAR; Bilirubin Urine UA NEGATIVE (NEGATIVE); Color Urine UA YELLOW; Glucose Urine UA NEGATIVE (Negative); Ketones Urine UA NEGATIVE (NEGATIVE); Leukocyte Esterase Urine UA 2+ (NEGATIVE); Nitrite Urine UA NEGATIVE (Negative); Occult Blood Urine UA 2+ (Negative); Protein Urine UA TRACE (Negative); Specific Gravity Urine UA <=1.005 (1.000-1.035); Urobilinogen Urine UA 0.2 E.U./dL (0.2)
[2023-09-30 12:42] LABS: Bacteria Urine Occasional (0-1); Culture Indicated Urine Specimen Cultured; RBC Urine 0-1/HPF (0-5/HPF); Squamous Epithelial Cell Urine None Seen (0-5/HPF); Urine Volume 10mL (spun); WBC Urine 1-5/HPF (0-5/HPF)
== END ==
PROVIDERS: Family Provider Internal Medicine; PCP Internal Medicine; Visit Provider Specialist
DX: N39.0 Urinary tract infection, site not specified (principal)
CPT/HCPCS: 81001; 87077; 87086; 87186

== ENCOUNTER → 2023-10-22 14:34 | Outpatient (ROUT) | payer MEDICARE, OTHER, SELFPAY ==
[2023-09-23 13:00] VITALS: PULSE 93; RESP 18; O2SAT 99; BMI 30.3
[2023-10-22 14:44] LABS: Appearance Urine UA CLOUDY; Bilirubin Urine UA NEGATIVE (NEGATIVE); Color Urine UA YELLOW; Glucose Urine UA NEGATIVE (Negative); Ketones Urine UA NEGATIVE (NEGATIVE); Leukocyte Esterase Urine UA 3+ (NEGATIVE); Nitrite Urine UA POSITIVE (Negative); Occult Blood Urine UA 3+ (Negative); Protein Urine UA NEGATIVE (Negative); Urobilinogen Urine UA 0.2 E.U./dL (0.2); pH Urine UA 5.5 (4.5-8.0)
[2023-10-22 15:03] LABS: Urine Volume 10mL (spun)
[2023-10-22 15:04] LABS: Bacteria Urine Few (2-10); Culture Indicated Urine Cult Not Indicated; RBC Urine >100/HPF (0-5/HPF); Squamous Epithelial Cell Urine 5-10 /HPF (0-5/HPF); WBC Urine >100/HPF (0-5/HPF)
== END ==
PROVIDERS: Family Provider Internal Medicine; PCP Internal Medicine; Visit Provider Specialist
DX: N39.0 Urinary tract infection, site not specified (principal)
CPT/HCPCS: 81001

== ENCOUNTER → 2023-11-12 14:15 | Outpatient (ROUT) | payer MEDICARE, OTHER, SELFPAY ==
[2023-09-23 13:00] VITALS: PULSE 93; RESP 18; O2SAT 99; BMI 30.3
[2023-11-12 14:41] LABS: Appearance Urine UA SL CLOUDY; Bilirubin Urine UA NEGATIVE (NEGATIVE); Color Urine UA YELLOW; Glucose Urine UA NEGATIVE (Negative); Ketones Urine UA NEGATIVE (NEGATIVE); Leukocyte Esterase Urine UA 3+ (NEGATIVE); Nitrite Urine UA NEGATIVE (Negative); Occult Blood Urine UA 2+ (Negative); Protein Urine UA NEGATIVE (Negative); Specific Gravity Urine UA 1.015 (1.000-1.035); Urobilinogen Urine UA 0.2 E.U./dL (0.2)
[2023-11-12 14:52] LABS: Bacteria Urine Many (>30); Culture Indicated Urine Specimen Cultured; RBC Urine 0-1/HPF (0-5/HPF); Squamous Epithelial Cell Urine 1-5 /HPF (0-5/HPF); Urine Volume Low Vol <10mL (spun); WBC Urine 5-10/HPF (0-5/HPF)
== END ==
PROVIDERS: Family Provider Internal Medicine; PCP Internal Medicine; Visit Provider Specialist
DX: N39.0 Urinary tract infection, site not specified (principal)
CPT/HCPCS: 81001; 87077; 87086

== ENCOUNTER → 2023-12-03 13:50 | Outpatient (ROUT) | payer MEDICARE, OTHER, SELFPAY ==
[2023-09-23 13:00] VITALS: PULSE 93; RESP 18; O2SAT 99; BMI 30.3
[2023-12-03 13:58] LABS: Appearance Urine UA CLEAR; Bilirubin Urine UA NEGATIVE (NEGATIVE); Color Urine UA YELLOW; Glucose Urine UA NEGATIVE (Negative); Ketones Urine UA NEGATIVE (NEGATIVE); Leukocyte Esterase Urine UA 2+ (NEGATIVE); Nitrite Urine UA NEGATIVE (Negative); Occult Blood Urine UA 3+ (Negative); Protein Urine UA NEGATIVE (Negative); Specific Gravity Urine UA <=1.005 (1.000-1.035); Urobilinogen Urine UA 0.2 E.U./dL (0.2); pH Urine UA 5.5 (4.5-8.0)
[2023-12-03 14:01] LABS: Urine Volume 10mL (spun)
[2023-12-03 14:02] LABS: Bacteria Urine None Seen; Culture Indicated Urine Specimen Cultured; RBC Urine 10-30/HPF (0-5/HPF); Squamous Epithelial Cell Urine 1-5 /HPF (0-5/HPF); WBC Urine 5-10/HPF (0-5/HPF)
== END ==
PROVIDERS: Family Provider Internal Medicine; PCP Internal Medicine; Visit Provider Specialist
DX: N39.0 Urinary tract infection, site not specified (principal)
CPT/HCPCS: 81001; 87086

== ENCOUNTER → 2023-12-24 13:26 | Outpatient (ROUT) | payer MEDICARE, OTHER, SELFPAY ==
[2023-09-23 13:00] VITALS: PULSE 93; RESP 18; O2SAT 99; BMI 30.3
[2023-12-24 13:34] LABS: Appearance Urine UA CLEAR; Bilirubin Urine UA NEGATIVE (NEGATIVE); Color Urine UA YELLOW; Glucose Urine UA NEGATIVE (Negative); Ketones Urine UA NEGATIVE (NEGATIVE); Leukocyte Esterase Urine UA 3+ (NEGATIVE); Nitrite Urine UA POSITIVE (Negative); Occult Blood Urine UA TRACE-INTACT (Negative); Protein Urine UA NEGATIVE (Negative); Specific Gravity Urine UA <=1.005 (1.000-1.035); Urobilinogen Urine UA 0.2 E.U./dL (0.2); pH Urine UA 6.5 (4.5-8.0)
[2023-12-24 13:45] LABS: Bacteria Urine Many (>30); RBC Urine 0-1/HPF (0-5/HPF); Squamous Epithelial Cell Urine 1-5 /HPF (0-5/HPF); Urine Volume 10mL (spun); WBC Urine 10-30/HPF (0-5/HPF)
[2023-12-24 13:46] LABS: Culture Indicated Urine Specimen Cultured
== END ==
PROVIDERS: Family Provider Internal Medicine; PCP Internal Medicine; Visit Provider Specialist
DX: N39.0 Urinary tract infection, site not specified (principal)
CPT/HCPCS: 81001; 87077; 87086

== ENCOUNTER 2023-12-27 17:13 | Emergency (ER) | payer MEDICARE, OTHER, SELFPAY ==
[2023-09-23 13:00] VITALS: PULSE 93; RESP 18; O2SAT 99; BMI 30.3
[2023-12-27] VITALS (17 sets, daily range): BP systolic 125–168; BP diastolic 64–72; PULSE 82–98; RESP 19–27; TEMP 36.9; O2SAT 91–98; BMI 22.6
--- NOTE | 2023-12-27 17:45 | DI.RAD.S_ITS ---
PROCEDURE: XR CHEST 1V INDICATIONS: suspected sepsis TECHNIQUE: One view of the chest was acquired. COMPARISON: [facility], CR, XR CHEST 1V, 02/17/2021, 5:07. [facility], CR, XR CHEST 1V, 08/28/2020, 1:19. FINDINGS: Surgical changes and devices: None. Lungs and pleura: Patient is rotated towards the left. Mild retrocardiac opacities may be related to atelectasis, aspiration, or pneumonia. No pleural effusion or pneumothorax. Mediastinum: Mediastinal contours appear normal. Heart size is normal. Bones and chest wall: No suspicious bony lesions. Overlying soft tissues appear unremarkable. IMPRESSION: Mild left basilar opacities may be related to atelectasis, scarring, aspiration, or pneumonia. Approved by: Ryan Bob M.D. on 12/27/2023 at 19:02
--- NOTE | 2023-12-27 17:58 | EKG_ITS ---
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
[2023-12-27 18:51] LABS: Prothrombin Time 11.2 SECONDS (9.4-12.5)
[2023-12-27 18:52] LABS: Alanine Aminotransferase 44 IU/L (<50); Albumin 4.5 g/dL (3.5-5.0); Albumin Globulin Ratio 1.3 (1.0-2.8); Alkaline Phosphatase 115 U/L (38-126); Aspartate Aminotransferase 36 IU/L (17-59); BUN Creatinine Ratio 31.4 (6-22); Bilirubin Total 1.1 mg/dL (0.2-1.3); Blood Urea Nitrogen 11 mg/dL (9-20); Calcium 9.4 mg/dL (8.4-10.2); Carbon Dioxide 24 mmol/L (22-32); Chloride 101 mmol/L (98-107); Estimated Glomerular Filt Rate > 60 mL/min (>60); Globulin 3.5 g/dL (1.7-4.1); Glucose 94 mg/dL (80-110); HEMOLYSIS 43 (0-50); Lipase 60 U/L (23-300); Potassium 3.6 mmol/L (3.4-5.1); Sodium 136 mmol/L (137-145)
--- NOTE | 2023-12-27 18:52 | ED.GENADULT ---
HPI - General Adult General Chief complaint: Urogenital-Male Stated complaint: sent by urology, believes he has sepsis Time Seen by Provider: 12/27/23 18:50 Source: patient, family, RN notes reviewed and old records reviewed Mode of arrival: Wheelchair Limitations: no limitations History of Present Illness HPI narrative: 73-year-old male former smoker, history of hypertension, dyslipidemia, multiple sclerosis, prior CVA and prior subdural with baclofen pump who presents with complaint fevers, little bit altered mental status couple days ago that was brief, feeling generalized increased weakness and fatigue. No fevers today. He has had a mild nonproductive cough he describes as having lot of phlegm in his chest but it has not coming up. No nasal congestion reported. No chest pain some mild shortness of breath. He did throw up 1 time today. He has chronic constipation typically goes a week between bowel movements. Last stool was on the 18 of December. They state this is fairly typical. He does state he has some discomfort in his abdomen. They noted that his urine catheter he has had new UTIs with Klebsiella was treated with Bactrim on 12/06 through . Repeat culture was positive on 12/23 for Klebsiella again. He has not on any antibiotics currently. His urine has been described as clear without any sediment or changes. His states his output has overall been normal although 1 day had some decreased output. Patient has his catheter changed out every 3 weeks by home health care. They state that he is typically colonized with Providencia as well as E coli. He was in contact with his urologist today who recommended he come to be evaluated for sepsis. Allergies include codeine, morphine and Cipro. Patient has had prior appendectomy, baclofen pump 1st placed in 1996 with subsequent change outs and a craniotomy for subdural that was spontaneous in the past. No tobacco, alcohol or recreational drugs. Related Data Home Medications Medication Instructions Recorded Confirmed fingolimod 0.5 mg capsule (Gilenya) 0.5 mg PO 0700 ##0 04/25/16 09/24/23 [BACLOFEN INTRATHECAL] 1 dose continuous intrathecal 03/01/19 09/24/23 infusion DAILY cholecalciferol (vitamin D3) 25 2,000 unit PO DAILY 10/11/22 09/24/23 mcg (1,000 unit) capsule (Vitamin D3) Previous Rx's Medication Instructions Recorded amitriptyline 10 mg tablet 10 mg PO BEDTIME #90 tabs 10/06/21 flu vacc [id number](65yr up)-PF 240 0.7 ml IM ONCE #0.7 mL 06/29/22 mcg/0.7 mL intramuscular syringe (Fluzone High-Dose Quad (PF)) baclofen 10 mg tablet 10 mg PO TID PRN muscle spasm #30 08/27/22 tabs ascorbic acid (vitamin C) 500 mg 500 mg PO BID #180 tabs 11/08/22 tablet liothyronine 5 mcg tablet (Cytomel) 5 mcg PO 0700,1900 #180 tabs 01/10/23 cyanocobalamin (vitamin B-12) 1,000 mcg IM QMONTH #1 ea 01/11/23 1,000 mcg/mL injection kit amlodipine 10 mg tablet 10 mg PO DAILY #90 tabs 05/06/23 atorvastatin 10 mg tablet (Lipitor) 10 mg PO DAILY #90 tabs 05/06/23 lidocaine HCl 2 % mucosal jelly in 1 applic topical .PRN #125 mL 06/20/23 applicator gabapentin 300 mg capsule 600 mg (2 x 300 mg) PO TID #540 08/05/23 caps levothyroxine 125 mcg tablet 125 mcg PO DAILY #90 tabs 09/17/23 methenamine hippurate 1 gram tablet 1 g PO BID #180 tabs 10/21/23 venlafaxine 75 mg capsule,extended 75 mg PO TID #270 caps 10/21/23 release 24 hr oxycodone 10 mg tablet 10 - 20 mg (1 - 2 x 10 mg) PO Q8H 12/16/23 PRN pain #60 tabs syringe with needle 3 mL 25 gauge #100 ea 12/16/23 x 1 (BD Luer-Macrina Syringe) methylphenidate HCl 5 mg tablet 5 mg PO 1900 #90 tabs 12/27/23 sulfamethoxazole 800 1 tab PO BID #20 tabs 12/27/23 mg-trimethoprim 160 mg tablet (Bactrim DS) Allergies Allergy/AdvReac Type Severity Reaction Status Date / Time ciprofloxacin [CIPROFLOXACIN] Allergy Intermediate diarrhea Verified 12/27/23 17:25 (AFTER ONE TAB?!) codeine [CODEINE] AdvReac Mild MAKES HIM Verified 12/27/23 17:25 ILL morphine [MORPHINE] AdvReac Unknown NAUSEA / Verified 12/27/23 17:25 VOMITING Review of Systems Review of Systems ROS Unobtainable: All systems reviewed & are unremarkable except as noted in HPI and below Patient History Medical History Idiopathic peripheral neuropathy Skin disorder Neurogenic bladder Recurrent UTI (urinary tract infection) COVID-19 Hair loss disorder Urinary retention Presence of vena cava filter Depression Anemia Essential hypertension (~06/15/19) Elevated PSA (~12/2017) Vitamin B 12 deficiency Family history of coronary arteriosclerosis Pulmonary embolism Abnormal liver function tests (05/19/15) Multiple sclerosis (04/22/15) 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) Acquired hypothyroidism (07/14/13) [place] filter in place (05/22/13) Trigeminal neuralgia (03/14/11) Venous stasis (03/14/11) Adenomatous polyp of colon (03/14/11) Mixed hyperlipidemia (03/14/11) Paraplegia Surgical History History of vasectomy History of circumcision History of ankle surgery Status post gamma knife treatment (04/06/20) S/P craniotomy S/P insertion of intrathecal pump Family History Unknown Family history of coronary arteriosclerosis Grandfather Cancer Coronary artery disease Mother Cancer Coronary artery disease Hearing impairment Thyroid disorder Father Coronary artery disease Diabetes mellitus Brother Coronary artery disease Daughter Migraines Social History marital status: number of children: 2 household members: spouse and caregiver occupational status: disabled Smoking Status: Former smoker Tobacco: How many years used: 40 alcohol intake: former caffeine: Yes Smoking Status: Former smoker Substance Use Type: does not use Exam Narrative Exam Narrative: GEN: Male, alert and oriented x 3, patient appears to be in mild distress. HEENT: Atraumatic, pupils are equal round reactive to light, extraocular movements are intact, nares are clear, there is no conjunctival pallor. Throat is clear without any exudates, erythema, tonsillar enlargement or uvular deviation No carotid bruits, pulses are equal in upper and lower extremities LUNGS:Lungs clear to auscultation, no wheezes, rales, crackles, chest moves symmetrically, no tachypnea accessory muscle use ABD:bowel sounds normal, patient is full in his lower abdomen, non-tender, no guarding, rebound, rigidity, no masses noted, no hepatosplenomegaly :No CVA tenderness, Camargo catheter in place draining yellow urine. No sediment appreciated. MSCL: Non-tender, no muscle atrophy, full range of motion of upper extremities, bilateral lower extremity weakness and atrophy. No edema bilateral lower extremities. NEURO:CN 2-12 intact, sensation normal SKIN: No rash, erythema or other skin changes noted Initial Vital Signs Initial Vital Signs: Vital Signs Temperature 98.4 F 12/27/23 17:25 Pulse Rate 89 12/27/23 17:25 Respiratory Rate 20 12/27/23 17:25 Blood Pressure 125/72 12/27/23 17:25 Pulse Oximetry 94 12/27/23 17:25 Oxygen Delivery Method Room Air 12/27/23 17:25 Course Orders Ordered: ED Orders 12/27/23 23:00 UA Complete [Urinalysis and Microscopic] Stat Urine Culture Stat Discontinued Medications Ceftriaxone Sodium 2,000 mg/ (Sodium Chloride) 100 mls @ 200 mls/hr IV NOW ONE Stop: 12/27/23 19:30 Last Infusion: 12/27/23 20:37 Dose: Infused Documented By: Admin: 12/27/23 19:51 Dose: 200 mls/hr Documented By: KUSUM Sodium Chloride (Normal Saline 0.9%) 1,000 mls @ 1,000 mls/hr IV BOLUS ONE Stop: 12/27/23 22:03 Last Infusion: 12/27/23 23:18 Dose: Infused Documented By: Admin: 12/27/23 21:56 Dose: 1,000 mls/hr Documented By: KUSUM Lidocaine HCl (Lidocaine 2% (Glydo) 6 Ml Gel) 6 ml TOP NOW ONE Stop: 12/27/23 22:54 Last Admin: 12/27/23 23:18 Dose: 6 ml Documented By: KUSUM Ondansetron HCl (Ondansetron 4 Mg/2 Ml Inj) 4 mg IV NOW PRN PRN Reason: Nausea And Vomiting Ondansetron HCl (Ondansetron 4 Mg Odt) 4 mg SL NOW PRN PRN Reason: Nausea And Vomiting Vital Signs Vital signs: Vital Signs - 8 hr 12/27/23 22:30 12/27/23 22:30 12/27/23 23:00 Pulse Rate 93 H 95 H Respiratory Rate 25 H 22 Blood Pressure 150/66 H Pulse Oximetry 94 12/27/23 23:01 12/27/23 23:01 12/27/23 23:30 Pulse Rate 95 H 92 H Respiratory Rate 23 23 Blood Pressure 134/66 Pulse Oximetry Medical Decision Making Lab Data 12/27/23 18:10 12/27/23 18:10 Labs: Lab Results 12/27/23 12/27/23 12/27/23 Range/Units 18:10 18:35 23:00 WBC 8.1 (4.5-11.0) X10^3/uL RBC 4.42 L (4.5-5.9) X10^6/uL Hgb 14.5 (13.5-17.5) g/dL Hct 42.4 (41-53) % MCV 96.0 (80-100) fL MCH 32.8 (26-34) PG MCHC 34.1 (30-36) % RDW 15.0 H (11.6-14.8) % Plt Count 273 (150-400) X10^3/uL Neut % (Auto) 86.8 H (50-75) % Lymph % (Auto) 1.8 L (25-40) % [place] % (Auto) 11.0 (3-14) % Eos % (Auto) 0.3 L (2-4) % Baso % (Auto) 0.1 (0-2) % Neut # (Auto) 7000 (7651-5750) /uL Lymph # (Auto) 100 L (3213-6829) /uL [place] # (Auto) 900 (0-900) /uL Eos # (Auto) 0 (0-450) /uL Baso # (Auto) 0 (0-100) /uL PT 11.2 (9.4-12.5) SECONDS INR 1.0 (0.9-1.3) APTT 22 L (25.1-36.5) SECONDS Sodium 136 L (137-145) mmol/L Potassium 3.6 (3.4-5.1) mmol/L Chloride 101 (98-107) mmol/L Carbon Dioxide 24 (22-32) mmol/L BUN 11 (9-20) mg/dL Creatinine 0.35 L (0.66-1.25) mg/dL Estimated GFR > 60 (>60) mL/min BUN/Creatinine Ratio 31.4 H (6-22) Glucose 94 (80-110) mg/dL Lactate 1.8 (0.7-2.1) mmol/L Calcium 9.4 (8.4-10.2) mg/dL Total Bilirubin 1.1 (0.2-1.3) mg/dL AST 36 (17-59) IU/L ALT 44 (<50) IU/L Alkaline Phosphatase 115 (38-126) U/L Total Protein 8.0 (6.3-8.2) g/dL Albumin 4.5 (3.5-5.0) g/dL Globulin 3.5 (1.7-4.1) g/dL Albumin/Globulin Ratio 1.3 (1.0-2.8) Lipase 60 (23-300) U/L Procalcitonin 0.163 (<0.5) ng/mL Urine Color Yellow Urine Appearance Sl cloudy Urine pH 6.5 (4.5-8.0) Ur Specific [place] 1.010 (1.000-1.035) Urine Protein Negative (Negative) Urine Glucose (UA) Negative (Negative) g/dL Urine Ketones 3+ H (NEGATIVE) Urine Occult Blood Trace-intact (Negative) Urine Nitrate Positive H (Negative) Urine Bilirubin Negative (NEGATIVE) Urine Urobilinogen 0.2 (0.2) E.U./dL Ur Leukocyte Esterase 3+ H (NEGATIVE) Urine RBC 0-1/hpf (0-5/HPF) Urine WBC 10-30/hpf H (0-5/HPF) Ur Squamous Epith Cells 1-5 /hpf (0-5/HPF) Urine Bacteria Moderate (10-30) H (None) Ur Culture Indicated? Specimen cultured Vol Urine Centrifuged 10ml (spun) ECG Data Attestation: I personally reviewed and interpreted this ECG as follows: Interpretation: Sinus rhythm rate 83 AL 152 QRS 82 QTC of 444. No acute ST elevation or depression noted. MDM Narrative Medical decision making narrative: 73-year-old male with history of MS, chronic catheter with recent positive cultures that was positive again on 12/23/2022 for Klebsiella. Patient had reported fevers has been punky feeling weak overall had little bit of nonproductive cough but also has been constipated in his quite full on examination. Patient was sent for concerns of sepsis vitals here are very appropriate although did have reported fevers in the last several days. Lab workup shows a white count 8.1 hemoglobin of 14.5 platelets of 273 predominance of neutrophils. INR is 1, sodium is 136 potassium 3.6 chloride 101 CO2 is 24 BUN 11 creatinine 0.35, glucose is 94 with a lactate of 1.8, calcium 9.4 with normal LFTs. Procalcitonin is 0.163. Patient has a positive urine culture from 12/26/2023 which shows Klebsiella pneumonia with greater 100,000 resistant to ampicillin but sensitive to Rocephin and a dose was given. Chest x-ray shows mild left basilar opacities maybe related to atelectasis, scarring aspiration or pneumonia. CT abdomen pelvis was obtained shows dense consolidations posterior dependent bilateral lobes, circumferential urinary bladder wall thickening could be related to cystitis, bladder is mildly distended with Camargo catheter balloon noted within the proximal penile urethra. Repositioning recommended. Large amount of densely packed fecal material distal sigmoid colon rectum could represent fecal impaction calling cholelithiasis without evidence of cholecystitis. Patient's catheter was not draining well, was replaced by nursing and now draining appropriately. Patient and family felt comfortable returning started on oral antibiotics. Patient has allergy to Cipro so was covered with Bactrim DS 10 days. Discharge Plan Departure Patient Disposition: Home Clinical Impression: Bacterial UTI Activity Restrictions/Additional Instructions: Take antibiotics until completed. Prescription was sent to [facility] in [place]. I would also recommend taking stool softener daily to help with your constipation. Please return for new fevers, any alterations in mental status, new abdominal back or flank pain, persistent vomiting, if you are having difficulties with your catheter or if it is blocked or other new or concerning changes. Prescriptions: New sulfamethoxazole-trimethoprim [Bactrim DS] 800-160 mg tablet 1 tab PO BID Qty: 20 0RF No Action Gilenya 0.5 MG capsule 0.5 mg PO 0700 Qty: 0 amitriptyline 10 mg tablet 10 mg PO BEDTIME Qty: 90 3RF Fluzone HighDose Quad 22-23 PF 240 mcg/0.7 mL syringe 0.7 ml IM ONCE Qty: 0.7 0RF Rx Instructions: as a single dose baclofen 10 mg tablet 10 mg PO TID PRN (Reason: muscle spasm) Qty: 30 0RF ascorbic acid (vitamin C) 500 mg tablet 500 mg PO BID Qty: 180 3RF liothyronine [Cytomel] 5 mcg tablet 5 mcg PO 0700,1900 Qty: 180 3RF cyanocobalamin (vitamin B-12) 1,000 mcg/mL kit 1,000 mcg IM QMONTH Qty: 1 12RF Rx Instructions: RX TO BE SENT TO [place] amlodipine 10 mg tablet 10 mg PO DAILY Qty: 90 3RF atorvastatin [Lipitor] 10 mg tablet 10 mg PO DAILY Qty: 90 3RF lidocaine HCl 2 % jelly in applicator 1 applic topical .PRN Qty: 125 1RF Rx Instructions: Inject 1 5 ml syringe into urethra as needed up to 30 min prior to catheter changes gabapentin 300 mg capsule 600 mg PO TID Qty: 540 3RF levothyroxine 125 mcg tablet 125 mcg PO DAILY Qty: 90 3RF methenamine hippurate 1 gram tablet 1 g PO BID Qty: 180 3RF venlafaxine 75 mg capsule,extended release 24hr 75 mg PO TID Qty: 270 3RF oxycodone 10 mg tablet 10 - 20 mg PO Q8H MDD 80mg PRN (Reason: pain) Qty: 60 0RF (DME) BD Luer-Macrina Syringe 3 mL 25 gauge x 1 syringe See Rx Instructions .ROUTE .COMPLEX Qty: 100 5RF Dose Instruction: USE DIRECTED FOR VITAMIN B12 INJECTIONS FUTURE REFILLS TO GO TO [place] Rx Instructions: USE DIRECTED FOR VITAMIN B12 INJECTIONS FUTURE REFILLS TO GO TO [place] methylphenidate HCl 5 mg tablet 5 mg PO 1900 Qty: 90 0RF cholecalciferol (vitamin D3) [Vitamin D3] 25 mcg (1,000 unit) capsule 2,000 unit PO DAILY [BACLOFEN INTRATHECAL] 1 dose continuous intrathecal infusion DAILY Referrals: Bala Alberts MD [Primary Care Provider] - Stand Alone Forms: Patient Portal/API
[2023-12-27 18:54] LABS: PTT Partial Thromboplastin Tim 22 SECONDS (25.1-36.5)
[2023-12-27 18:58] LABS: Add Manual Diff / Slide Review NO; Basophils Absolute Auto 0 /uL (0-100); Basophils Percent Auto 0.1 % (0-2); Eosinophils Absolute Auto 0 /uL (0-450); Eosinophils Percent Auto 0.3 % (2-4); Hematocrit 42.4 % (41-53); Hemoglobin 14.5 g/dL (13.5-17.5); Lymphocytes Absolute Auto 100 /uL (1100-4500); Lymphocytes Percent Auto 1.8 % (25-40); Mean Corpuscular HGB Conc 34.1 % (30-36); Mean Corpuscular Hemoglobin 32.8 PG (26-34); Monocytes Absolute Auto 900 /uL (0-900); Neutrophils Absolute Auto 7000 /uL (1500-7000); Neutrophils Percent Auto 86.8 % (50-75); Platelet Count 273 X10^3/uL (150-400); Red Blood Cell Count 4.42 X10^6/uL (4.5-5.9); White Blood Cell Count 8.1 X10^3/uL (4.5-11.0)
[2023-12-27 19:06] LABS: Lactate (Lactic Acid) 1.8 mmol/L (0.7-2.1)
[2023-12-27 19:09] LABS: Procalcitonin 0.163 ng/mL (<0.5)
--- NOTE | 2023-12-27 19:27 | DI.CT.S_ITS ---
PROCEDURE: CT ABDOMEN PELVIS W CON INDICATIONS: recurrent utis, constipation, fever TECHNIQUE: After the administration of intravenous contrast, axial sections acquired from the lung bases to the pubic symphysis. Coronal and sagittal reformats were performed. For radiation dose reduction, the following was used: automated exposure control, adjustment of mA and/or kV according to patient size. COMPARISON: [facility], CR, XR CHEST 1V, 12/27/2023, 17:55. [facility], CT, CT ABDOMEN PELVIS W CON, 03/01/2019, 17:22. FINDINGS: Image quality: Diagnostic. Lower Chest: Heart size is normal. Bibasilar atelectasis. Dense consolidations involving the dependent portions of the bilateral lower lobes which may represent pneumonia or aspiration. Minimal tree-in-bud opacities of the bilateral lower lobes. ABDOMEN: Liver: No solid mass. There is diffuse hypoattenuation of the liver parenchyma relative to the spleen compatible with hepatic steatosis. Gallbladder: Multiple layering gallstones. No CT evidence for acute cholecystitis. Biliary ducts: No biliary dilation. Pancreas: No ductal dilation. Spleen: Size is within normal limits. Adrenal Glands: No adrenal nodules. Kidneys and Ureters: Nonobstructing 4 mm left renal stone. No hydronephrosis. No solid mass. No complex renal cystic lesion which requires follow up. Bilateral ureters are normal in course and caliber without ureteral stone. Stomach and Bowel: Scattered colonic diverticula without acute inflammation. Scattered fecal material seen throughout the colon with large amount noted in the distal sigmoid colon and rectum. Impacted appearance of rectal material. No evidence for small bowel obstruction. Peritoneum: No abnormal intraperitoneal fluid. No free air. Ventral Wall: There is a fat-containing umbilical hernia without acute inflammation. Neurostimulator device is noted in the subcutaneous soft tissues of the anterior lower left abdominal wall. Abdominal Nodes: No retroperitoneal or mesenteric adenopathy by size criteria. Vessels: Aorta and inferior vena cava are normal in size. PELVIS: Pelvic Organs: Mild prostatomegaly Bladder: There is mild circumferential urinary bladder wall thickening more than expected for degree of bladder distension. Multiple locules of air noted in the anti dependent portions of the urinary bladder likely from placement of Camargo catheter which is visualized within the proximal penile urethra. Pelvic Nodes: No enlarged lymph nodes. Miscellaneous: No inguinal hernias are seen. Bones: No aggressive osseous abnormality. No acute vertebral body compression fractures. Multilevel spondylitic changes throughout the imaged spine. No suspicious osseous lesions. IMPRESSION: 1. Dense consolidations in the posterior, dependent portions of the bilateral lower lobes with adjacent faint tree-in-bud opacities likely representing pneumonia versus aspiration. 2. Circumferential urinary bladder wall thickening which may be related to cystitis. Of note, the urinary bladder is mildly distended with Camargo catheter balloon noted within the proximal penile urethra. Repositioning is recommended. 3. Large amount of densely packed fecal material within the distal sigmoid colon and rectum. Findings may represent fecal impaction. Recommend clinical correlation. 4. Cholelithiasis without CT evidence for acute cholecystitis. 5. Other chronic findings as above. Dictated by: David Schmidt M.D. on 12/27/2023 at 20:52 Approved by: David Schmidt M.D. on 12/27/2023 at 21:02
[2023-12-27] MEDS: cefTRIAXone 2,000 MG in SODIUM CHLORIDE 0.9% 100 ML 200 MG IV (19:51)
[2023-12-27] MEDS: SODIUM CHLORIDE 0.9% 1,000 ML 1000 ML IV (21:56)
[2023-12-27] MEDS: LIDOCAINE 2% (GLYDO) 6 ML GEL TOP (23:18)
[2023-12-28 00:18] LABS: Appearance Urine UA SL CLOUDY; Bilirubin Urine UA NEGATIVE (NEGATIVE); Glucose Urine UA NEGATIVE (Negative); Ketones Urine UA 3+ (NEGATIVE); Leukocyte Esterase Urine UA 3+ (NEGATIVE); Nitrite Urine UA POSITIVE (Negative); Occult Blood Urine UA TRACE-INTACT (Negative); Protein Urine UA NEGATIVE (Negative); Urobilinogen Urine UA 0.2 E.U./dL (0.2); pH Urine UA 6.5 (4.5-8.0)
[2023-12-28 00:19] LABS: Color Urine UA Yellow
[2023-12-28 00:24] LABS: Bacteria Urine Moderate (10-30); Culture Indicated Urine Specimen Cultured; RBC Urine 0-1/HPF (0-5/HPF); Squamous Epithelial Cell Urine 1-5 /HPF (0-5/HPF); Urine Volume 10mL (spun); WBC Urine 10-30/HPF (0-5/HPF)
== END 2023-12-27 23:45 | disposition home or self-care (01) ==
PROVIDERS: Emergency Medicine; Emergency Provider Emergency Medicine; Family Provider Internal Medicine; PCP Internal Medicine
DX: N39.0 Urinary tract infection, site not specified (principal); R50.9 Fever, unspecified
CPT/HCPCS: 36415; 71045; 74177; 80053; 81001; 83605; 83690; 84145; 85025; 85610; 85730; 87040; 87077; 87086; 87186; 93005; 96361; 96365; 99284; J0696; Q9967

== ENCOUNTER → 2024-01-13 12:25 | Outpatient (ROUT) | payer MEDICARE, OTHER, SELFPAY ==
[2023-09-23 13:00] VITALS: PULSE 93; RESP 18; O2SAT 99; BMI 30.3
[2024-01-13 12:51] LABS: Bilirubin Urine UA NEGATIVE (NEGATIVE); Color Urine UA YELLOW; Glucose Urine UA NEGATIVE (Negative); Ketones Urine UA NEGATIVE (NEGATIVE); Leukocyte Esterase Urine UA TRACE (NEGATIVE); Nitrite Urine UA NEGATIVE (Negative); Occult Blood Urine UA 2+ (Negative); Protein Urine UA 3+ (Negative); Specific Gravity Urine UA 1.025 (1.000-1.035); Urobilinogen Urine UA 0.2 E.U./dL (0.2); pH Urine UA 6.5 (4.5-8.0)
[2024-01-13 12:52] LABS: Appearance Urine UA SL CLOUDY
[2024-01-13 13:00] LABS: Bacteria Urine Few (2-10); RBC Urine 5-10/HPF (0-5/HPF); Squamous Epithelial Cell Urine 1-5 /HPF (0-5/HPF); Urine Volume Low Vol <10mL (spun); WBC Urine 1-5/HPF (0-5/HPF)
[2024-01-13 13:01] LABS: Culture Indicated Urine Specimen Cultured
== END ==
PROVIDERS: Family Provider Internal Medicine; PCP Internal Medicine; Visit Provider Specialist
DX: N39.0 Urinary tract infection, site not specified (principal)
CPT/HCPCS: 81001; 87086

== ENCOUNTER → 2024-02-04 12:31 | Outpatient (ROUT) | payer MEDICARE, OTHER, SELFPAY ==
[2023-09-23 13:00] VITALS: PULSE 93; RESP 18; O2SAT 99; BMI 30.3
[2024-02-04 13:00] LABS: Appearance Urine UA CLEAR; Bilirubin Urine UA NEGATIVE (NEGATIVE); Color Urine UA YELLOW; Glucose Urine UA NEGATIVE (Negative); Ketones Urine UA NEGATIVE (NEGATIVE); Leukocyte Esterase Urine UA TRACE (NEGATIVE); Nitrite Urine UA NEGATIVE (Negative); Occult Blood Urine UA 3+ (Negative); Protein Urine UA 3+ (Negative); Specific Gravity Urine UA >=1.030 (1.000-1.035); Urobilinogen Urine UA 0.2 E.U./dL (0.2)
[2024-02-04 13:37] LABS: Bacteria Urine Moderate (10-30); Calcium Oxalate Crystals Urine Few; RBC Urine 10-30/HPF (0-5/HPF); Squamous Epithelial Cell Urine 0-1 /HPF (0-5/HPF); Urine Volume 10mL (spun); WBC Urine 0-1/HPF (0-5/HPF)
[2024-02-04 13:38] LABS: Culture Indicated Urine Specimen Cultured
== END ==
PROVIDERS: Family Provider Internal Medicine; PCP Internal Medicine; Visit Provider Specialist
DX: N39.0 Urinary tract infection, site not specified (principal)
CPT/HCPCS: 81001; 87077; 87086

== ENCOUNTER → 2024-03-10 11:22 | Outpatient (CLI) | payer MEDICARE, OTHER, SELFPAY ==
[2023-09-23 13:00] VITALS: PULSE 93; RESP 18; O2SAT 99; BMI 30.3
[2024-03-10 13:03] LABS: Add Manual Diff / Slide Review NO; Basophils Absolute Auto 0 /uL (0-100); Basophils Percent Auto 0.3 % (0-2); Eosinophils Absolute Auto 100 /uL (0-450); Eosinophils Percent Auto 2.4 % (2-4); Hematocrit 40.3 % (41-53); Hemoglobin 13.6 g/dL (13.5-17.5); Lymphocytes Absolute Auto 400 /uL (1100-4500); Lymphocytes Percent Auto 9.5 % (25-40); Mean Corpuscular HGB Conc 33.8 % (30-36); Mean Corpuscular Hemoglobin 32.6 PG (26-34); Mean Corpuscular Volume 96.5 fL (80-100); Monocytes Absolute Auto 500 /uL (0-900); Monocytes Percent Auto 12.2 % (3-14); Neutrophils Absolute Auto 3100 /uL (1500-7000); Neutrophils Percent Auto 75.6 % (50-75); Platelet Count 272 X10^3/uL (150-400); Red Blood Cell Count 4.17 X10^6/uL (4.5-5.9); Red Cell Distribution Width 15.3 % (11.6-14.8); White Blood Cell Count 4.2 X10^3/uL (4.5-11.0)
[2024-03-10 13:27] LABS: Erythrocyte Sedimentation Rate 20 MM/HR (0-15)
[2024-03-10 13:43] LABS: Alanine Aminotransferase 40 IU/L (<50); Albumin Globulin Ratio 1.7 (1.0-2.8); Alkaline Phosphatase 109 U/L (38-126); Aspartate Aminotransferase 37 IU/L (17-59); BUN Creatinine Ratio 35.5 (6-22); Bilirubin Total 0.4 mg/dL (0.2-1.3); Blood Urea Nitrogen 11 mg/dL (9-20); C-Reactive Protein Quant 1.4 mg/dL (<1.0); Calcium 9.4 mg/dL (8.4-10.2); Carbon Dioxide 26 mmol/L (22-32); Chloride 105 mmol/L (98-107); Estimated Glomerular Filt Rate > 60 mL/min (>60); Globulin 2.3 g/dL (1.7-4.1); Glucose 110 mg/dL (80-110); HEMOLYSIS < 15 (0-50); Potassium 4.2 mmol/L (3.4-5.1); Sodium 140 mmol/L (137-145); Total Protein 6.3 g/dL (6.3-8.2); Uric Acid 2.7 mg/dL (3.5-8.5)
[2024-03-10 14:40] LABS: Thyroid Stimulating Hormone < 0.015 uIU/mL (0.47-4.68)
[2024-03-10 16:00] LABS: Free T3, Triiodothyronine Free 4.53 pg/mL (2.77-5.27)
[2024-03-10 16:34] LABS: Vitamin B12 903 pg/mL (239-931)
[2024-03-18 17:09] LABS: HLA B27 Negative (.)
== END ==
PROVIDERS: Family Provider Internal Medicine; PCP Internal Medicine; Referring Provider Internal Medicine; Visit Provider Internal Medicine
DX: E03.9 Hypothyroidism, unspecified (principal); E78.2 Mixed hyperlipidemia; I10 Essential (primary) hypertension; E53.8 Deficiency of other specified B group vitamins; D64.9 Anemia, unspecified; M10.9 Gout, unspecified; G60.9 Hereditary and idiopathic neuropathy, unspecified; M45.9 Ankylosing spondylitis of unspecified sites in spine
CPT/HCPCS: 36415; 80053; 81374; 82607; 84439; 84443; 84481; 84550; 85025; 85651; 86140

== ENCOUNTER → 2024-03-13 13:16 | Outpatient (ROUT) | payer MEDICARE, OTHER, SELFPAY ==
[2023-09-23 13:00] VITALS: PULSE 93; RESP 18; O2SAT 99; BMI 30.3
[2024-03-13 13:25] LABS: Appearance Urine UA CLEAR; Bilirubin Urine UA NEGATIVE (NEGATIVE); Color Urine UA YELLOW; Glucose Urine UA NEGATIVE (Negative); Ketones Urine UA NEGATIVE (NEGATIVE); Leukocyte Esterase Urine UA 1+ (NEGATIVE); Nitrite Urine UA NEGATIVE (Negative); Occult Blood Urine UA 1+ (Negative); Protein Urine UA NEGATIVE (Negative); Specific Gravity Urine UA <=1.005 (1.000-1.035); Urobilinogen Urine UA 0.2 E.U./dL (0.2)
[2024-03-13 13:40] LABS: RBC Urine None Seen (0-5/HPF); Urine Volume 10mL (spun); WBC Urine 0-1/HPF (0-5/HPF)
[2024-03-13 13:41] LABS: Bacteria Urine Few (2-10); Culture Indicated Urine Specimen Cultured; Squamous Epithelial Cell Urine None Seen (0-5/HPF)
== END ==
PROVIDERS: Family Provider Internal Medicine; PCP Internal Medicine; Visit Provider Internal Medicine
DX: R30.0 Dysuria (principal); R31.9 Hematuria, unspecified
CPT/HCPCS: 81001; 87077; 87086; 87186

== ENCOUNTER → 2024-03-20 12:11 | Outpatient (ROUT) | payer MEDICARE, OTHER, SELFPAY ==
[2023-09-23 13:00] VITALS: PULSE 93; RESP 18; O2SAT 99; BMI 30.3
[2024-03-20 12:20] LABS: Appearance Urine UA SL CLOUDY; Bilirubin Urine UA NEGATIVE (NEGATIVE); Color Urine UA YELLOW; Glucose Urine UA NEGATIVE (Negative); Ketones Urine UA NEGATIVE (NEGATIVE); Leukocyte Esterase Urine UA 3+ (NEGATIVE); Nitrite Urine UA NEGATIVE (Negative); Occult Blood Urine UA 3+ (Negative); Protein Urine UA NEGATIVE (Negative); Specific Gravity Urine UA <=1.005 (1.000-1.035); Urobilinogen Urine UA 0.2 E.U./dL (0.2); pH Urine UA 5.5 (4.5-8.0)
[2024-03-20 12:28] LABS: RBC Urine 10-30/HPF (0-5/HPF); Urine Volume 10mL (spun); WBC Urine 30-100/HPF (0-5/HPF)
[2024-03-20 12:29] LABS: Bacteria Urine Many (>30); Culture Indicated Urine Specimen Cultured; Squamous Epithelial Cell Urine 1-5 /HPF (0-5/HPF)
== END ==
PROVIDERS: Family Provider Internal Medicine; PCP Internal Medicine; Visit Provider Internal Medicine
DX: N39.0 Urinary tract infection, site not specified (principal)
CPT/HCPCS: 81001; 87077; 87086; 87186

== ENCOUNTER → 2024-04-03 13:46 | Outpatient (CLI) | payer MEDICARE, OTHER, SELFPAY ==
[2024-03-27 14:07] VITALS: PULSE 93; RESP 18; O2SAT 99; BMI 30.3
--- NOTE | 2024-04-03 13:48 | DI.CT.S_ITS ---
PROCEDURE: CT HEAD/BRAIN WO CON INDICATIONS: SDH TECHNIQUE: Noncontrast 4.5 mm thick angled axial sections acquired from the foramen magnum to the vertex, with coronal and sagittal reformats. For radiation dose reduction, the following was used: automated exposure control, adjustment of mA and/or kV according to patient size. COMPARISON: [facility], MR, MR BRAIN WITH/WITHOUT CONTRAST, 10/31/2023, 15:52. [facility], CT, CT HEAD/BRAIN WO CON, 02/17/2021, 3:24. [facility], CT, CT HEAD/BRAIN WO CON, 08/28/2020, 2:30. FINDINGS: Image quality: Diagnostic. CSF spaces: Basal cisterns are patent. Stable hyperdense material can be seen along the lateral aspect of the right cerebral hemisphere, which is unchanged compared to 2020. The ventricles are symmetric in size and shape. Brain: No intracranial bleeds or masses. There is cerebral volume loss for age, with resultant ventricular and sulcal prominence. There are periventricular and deep white matter chronic small vessel ischemic changes. There is intracranial internal carotid artery atherosclerosis. Skull and face: Right-sided craniotomy change can be seen. Stable remote irregularity can be seen of the right calvarium. Calvarium and visualized facial bones appear intact, without suspicious lesions. Sinuses: Visualized sinuses and mastoids are clear. IMPRESSION: No significant acute abnormality can be seen. Remote right-sided craniotomy change, with calvarial irregularity. Stable hyperdense material seen along the lateral aspect of the right cerebral hemisphere. Dictated by: Bubba Lozada M.D. on 04/03/2024 at 15:05 Approved by: Bubba Lozada M.D. on 04/03/2024 at 15:07
== END ==
PROVIDERS: Family Provider Internal Medicine; PCP Internal Medicine; Referring Provider Physician Assistant; Visit Provider Physician Assistant
DX: S06.5XAA Traumatic subdural hemorrhage with loss of consciousness status unknown, initial encounter (principal)
CPT/HCPCS: 70450

== ENCOUNTER → 2024-04-10 14:03 | Outpatient (CLI) | payer MEDICARE, OTHER, SELFPAY ==
[2024-03-27 14:07] VITALS: PULSE 93; RESP 18; O2SAT 99; BMI 30.3
== END ==
PROVIDERS: Family Provider Internal Medicine; PCP Internal Medicine; Visit Provider Urology
DX: N39.0 Urinary tract infection, site not specified (principal); Z97.8 Presence of other specified devices
CPT/HCPCS: 87077; 87086; 87186

== ENCOUNTER → 2024-05-08 14:36 | Outpatient (CLI) | payer MEDICARE, OTHER, SELFPAY ==
[2024-03-27 14:07] VITALS: PULSE 93; RESP 18; O2SAT 99; BMI 30.3
== END ==
PROVIDERS: Family Provider Internal Medicine; PCP Internal Medicine; Referring Provider Urology; Visit Provider Urology
DX: Z97.8 Presence of other specified devices (principal); N39.0 Urinary tract infection, site not specified
CPT/HCPCS: 87086

== ENCOUNTER → 2024-06-09 13:09 | Outpatient (ROUT) | payer MEDICARE, OTHER, SELFPAY ==
[2024-03-27 14:07] VITALS: PULSE 93; RESP 18; O2SAT 99; BMI 30.3
[2024-06-09 13:29] LABS: Appearance Urine UA SL CLOUDY; Bilirubin Urine UA NEGATIVE (NEGATIVE); Color Urine UA YELLOW; Glucose Urine UA NEGATIVE (Negative); Ketones Urine UA NEGATIVE (NEGATIVE); Leukocyte Esterase Urine UA 2+ (NEGATIVE); Nitrite Urine UA POSITIVE (Negative); Occult Blood Urine UA 2+ (Negative); Protein Urine UA 2+ (Negative); Urobilinogen Urine UA 0.2 E.U./dL (0.2)
[2024-06-09 13:41] LABS: Bacteria Urine Many (>30); RBC Urine 5-10/HPF (0-5/HPF); Squamous Epithelial Cell Urine 1-5 /HPF (0-5/HPF); Transitional Epi Cells Urine 1-5/HPF (0-5/HPF); Urine Volume 10mL (spun); WBC Urine 30-100/HPF (0-5/HPF)
[2024-06-09 13:42] LABS: Culture Indicated Urine Cult Not Indicated
== END ==
PROVIDERS: Family Provider Internal Medicine; PCP Internal Medicine; Visit Provider Internal Medicine
DX: N39.0 Urinary tract infection, site not specified (principal)
CPT/HCPCS: 81001; 87077; 87086; 87186

== ENCOUNTER → 2024-06-29 12:29 | Outpatient (ROUT) | payer MEDICARE, OTHER, SELFPAY ==
[2024-03-27 14:07] VITALS: PULSE 93; RESP 18; O2SAT 99; BMI 30.3
[2024-06-29 13:07] LABS: Appearance Urine UA CLEAR; Bilirubin Urine UA NEGATIVE (NEGATIVE); Color Urine UA YELLOW; Glucose Urine UA NEGATIVE (Negative); Ketones Urine UA NEGATIVE (NEGATIVE); Leukocyte Esterase Urine UA TRACE (NEGATIVE); Nitrite Urine UA NEGATIVE (Negative); Occult Blood Urine UA 2+ (Negative); Protein Urine UA 3+ (Negative); Urobilinogen Urine UA 0.2 E.U./dL (0.2)
[2024-06-29 13:24] LABS: Bacteria Urine Few (2-10); Culture Indicated Urine Specimen Cultured; RBC Urine 1-5/HPF (0-5/HPF); Squamous Epithelial Cell Urine None Seen (0-5/HPF); Urine Volume 10mL (spun); WBC Urine 5-10/HPF (0-5/HPF)
== END ==
PROVIDERS: Family Provider Internal Medicine; PCP Internal Medicine; Visit Provider Internal Medicine
DX: N39.0 Urinary tract infection, site not specified (principal)
CPT/HCPCS: 81001; 87077; 87086; 87186

== ENCOUNTER → 2024-07-21 13:37 | Outpatient (ROUT) | payer MEDICARE, OTHER, SELFPAY ==
[2024-03-27 14:07] VITALS: PULSE 93; RESP 18; O2SAT 99; BMI 30.3
[2024-07-21 13:44] LABS: Appearance Urine UA CLEAR; Bilirubin Urine UA NEGATIVE (NEGATIVE); Color Urine UA YELLOW; Glucose Urine UA NEGATIVE (Negative); Ketones Urine UA NEGATIVE (NEGATIVE); Leukocyte Esterase Urine UA 1+ (NEGATIVE); Nitrite Urine UA NEGATIVE (Negative); Occult Blood Urine UA 2+ (Negative); Protein Urine UA 1+ (Negative); Specific Gravity Urine UA <=1.005 (1.000-1.035); Urobilinogen Urine UA 0.2 E.U./dL (0.2); pH Urine UA 6.5 (4.5-8.0)
[2024-07-21 14:00] LABS: Bacteria Urine Occasional (0-1); RBC Urine 0-1/HPF (0-5/HPF); Squamous Epithelial Cell Urine None Seen (0-5/HPF); Urine Volume 10mL (spun); WBC Urine 1-5/HPF (0-5/HPF)
[2024-07-21 14:01] LABS: Culture Indicated Urine Specimen Cultured
== END ==
PROVIDERS: Family Provider Internal Medicine; PCP Internal Medicine; Visit Provider Internal Medicine
DX: N39.0 Urinary tract infection, site not specified (principal)
CPT/HCPCS: 81001; 87077; 87086; 87186

== ENCOUNTER → 2024-08-25 11:42 | Outpatient (ROUT) | payer MEDICARE, OTHER, SELFPAY ==
[2024-03-27 14:07] VITALS: PULSE 93; RESP 18; O2SAT 99; BMI 30.3
[2024-08-25 12:01] LABS: Appearance Urine UA CLEAR; Bilirubin Urine UA NEGATIVE (NEGATIVE); Color Urine UA YELLOW; Glucose Urine UA NEGATIVE (Negative); Ketones Urine UA NEGATIVE (NEGATIVE); Leukocyte Esterase Urine UA 2+ (NEGATIVE); Nitrite Urine UA NEGATIVE (Negative); Occult Blood Urine UA 3+ (Negative); Protein Urine UA NEGATIVE (Negative); Specific Gravity Urine UA <=1.005 (1.000-1.035); Urobilinogen Urine UA 0.2 E.U./dL (0.2); pH Urine UA 5.5 (4.5-8.0)
[2024-08-25 12:05] LABS: Urine Volume 10mL (spun)
[2024-08-25 12:07] LABS: Bacteria Urine None Seen; Culture Indicated Urine Specimen Cultured; RBC Urine 5-10/HPF (0-5/HPF); Squamous Epithelial Cell Urine None Seen (0-5/HPF); WBC Urine 5-10/HPF (0-5/HPF)
== END ==
PROVIDERS: Family Provider Internal Medicine; PCP Internal Medicine; Visit Provider Internal Medicine
DX: N39.0 Urinary tract infection, site not specified (principal)
CPT/HCPCS: 81001; 87077; 87086; 87186

== ENCOUNTER → 2024-09-14 16:10 | Outpatient (ROUT) | payer MEDICARE, OTHER, SELFPAY ==
[2024-03-27 14:07] VITALS: PULSE 93; RESP 18; O2SAT 99; BMI 30.3
== END ==
PROVIDERS: Family Provider Internal Medicine; PCP Internal Medicine; Visit Provider Urology
DX: Z13.89 Encounter for screening for other disorder (principal); N39.0 Urinary tract infection, site not specified
CPT/HCPCS: 87077; 87086; 87186

== ENCOUNTER → 2024-10-06 14:03 | Outpatient (ROUT) | payer MEDICARE, OTHER, SELFPAY ==
[2024-03-27 14:07] VITALS: PULSE 93; RESP 18; O2SAT 99; BMI 30.3
[2024-10-06 14:28] LABS: Appearance Urine UA CLEAR; Bilirubin Urine UA NEGATIVE (NEGATIVE); Color Urine UA YELLOW; Glucose Urine UA NEGATIVE (Negative); Ketones Urine UA NEGATIVE (NEGATIVE); Leukocyte Esterase Urine UA 3+ (NEGATIVE); Nitrite Urine UA NEGATIVE (Negative); Occult Blood Urine UA 2+ (Negative); Protein Urine UA NEGATIVE (Negative); Specific Gravity Urine UA <=1.005 (1.000-1.035); Urobilinogen Urine UA 0.2 E.U./dL (0.2)
[2024-10-06 14:36] LABS: Bacteria Urine Few (2-10); RBC Urine 0-1/HPF (0-5/HPF); Squamous Epithelial Cell Urine 0-1 /HPF (0-5/HPF); Urine Volume Low Vol <10mL (spun); WBC Urine 1-5/HPF (0-5/HPF)
== END ==
PROVIDERS: Family Provider Internal Medicine; PCP Internal Medicine; Visit Provider Urology
DX: Z13.89 Encounter for screening for other disorder (principal)
CPT/HCPCS: 81001; 87077; 87086; 87147; 87186

== ENCOUNTER → 2024-10-20 15:26 | Outpatient (ROUT) | payer MEDICARE, OTHER, SELFPAY ==
[2024-03-27 14:07] VITALS: PULSE 93; RESP 18; O2SAT 99; BMI 30.3
[2024-10-20 15:40] LABS: Appearance Urine UA CLEAR; Bilirubin Urine UA NEGATIVE (NEGATIVE); Color Urine UA YELLOW; Glucose Urine UA NEGATIVE (Negative); Ketones Urine UA NEGATIVE (NEGATIVE); Leukocyte Esterase Urine UA 2+ (NEGATIVE); Nitrite Urine UA POSITIVE (Negative); Occult Blood Urine UA TRACE-INTACT (Negative); Protein Urine UA NEGATIVE (Negative); Urobilinogen Urine UA 0.2 E.U./dL (0.2)
[2024-10-20 15:53] LABS: Bacteria Urine Few (2-10); Culture Indicated Urine Cult Not Indicated; RBC Urine 1-5/HPF (0-5/HPF); Squamous Epithelial Cell Urine 1-5 /HPF (0-5/HPF); Urine Volume 10mL (spun); WBC Urine 5-10/HPF (0-5/HPF)
== END ==
PROVIDERS: Family Provider Internal Medicine; PCP Internal Medicine; Visit Provider Urology
DX: N39.0 Urinary tract infection, site not specified (principal); Z97.8 Presence of other specified devices
CPT/HCPCS: 81001; 87077; 87086; 87186

== ENCOUNTER → 2024-10-27 12:06 | Outpatient (ROUT) | payer SELFPAY ==
[2024-10-27 12:11] LABS: Appearance Urine UA CLEAR; Bilirubin Urine UA NEGATIVE (NEGATIVE); Color Urine UA YELLOW; Glucose Urine UA NEGATIVE (Negative); Ketones Urine UA NEGATIVE (NEGATIVE); Leukocyte Esterase Urine UA TRACE (NEGATIVE); Nitrite Urine UA NEGATIVE (Negative); Occult Blood Urine UA NEGATIVE (Negative); Protein Urine UA NEGATIVE (Negative); Specific Gravity Urine UA <=1.005 (1.000-1.035); Urobilinogen Urine UA 0.2 E.U./dL (0.2); pH Urine UA 5.5 (4.5-8.0)
[2024-10-27 12:22] LABS: Bacteria Urine None Seen; RBC Urine None Seen (0-5/HPF); Squamous Epithelial Cell Urine None Seen (0-5/HPF); Urine Volume 10mL (spun); WBC Urine 1-5/HPF (0-5/HPF)
== END ==
PROVIDERS: Visit Provider Urology
DX: N39.0 Urinary tract infection, site not specified (principal); Z97.8 Presence of other specified devices
CPT/HCPCS: 81001; 87086

== ENCOUNTER → 2024-11-17 16:01 | Outpatient (ROUT) | payer MEDICARE, OTHER, SELFPAY ==
[2024-03-27 14:07] VITALS: PULSE 93; RESP 18; O2SAT 99; BMI 30.3
[2024-11-17 16:12] LABS: Appearance Urine UA CLEAR; Bilirubin Urine UA NEGATIVE (NEGATIVE); Glucose Urine UA NEGATIVE (Negative); Ketones Urine UA NEGATIVE (NEGATIVE); Leukocyte Esterase Urine UA 2+ (NEGATIVE); Nitrite Urine UA POSITIVE (Negative); Occult Blood Urine UA NEGATIVE (Negative); Protein Urine UA NEGATIVE (Negative); Urobilinogen Urine UA 0.2 E.U./dL (0.2); pH Urine UA 6.5 (4.5-8.0)
[2024-11-17 16:21] LABS: Color Urine UA Straw
[2024-11-17 16:22] LABS: RBC Urine None Seen (0-5/HPF); Urine Volume Low Vol <10mL unspun; WBC Urine 1-5/HPF (0-5/HPF)
[2024-11-17 16:23] LABS: Bacteria Urine Moderate (10-30); Culture Indicated Urine Specimen Cultured; Squamous Epithelial Cell Urine 0-1 /HPF (0-5/HPF)
== END ==
LOC: LAB 16:02
PROVIDERS: Family Provider Internal Medicine; PCP Internal Medicine; Visit Provider Urology
DX: N39.0 Urinary tract infection, site not specified (principal)
CPT/HCPCS: 81001; 87077; 87086; 87186

== ENCOUNTER → 2024-11-23 14:34 | Outpatient (CLI) | payer MEDICARE, OTHER, SELFPAY ==
[2024-03-27 14:07] VITALS: PULSE 93; RESP 18; O2SAT 99; BMI 30.3
[2024-11-23 15:26] LABS: Add Manual Diff / Slide Review NO; Basophils Absolute Auto 0 /uL (0-100); Basophils Percent Auto 0.3 % (0-2); Eosinophils Absolute Auto 100 /uL (0-450); Hematocrit 41.4 % (41-53); Hemoglobin 13.5 g/dL (13.5-17.5); Lymphocytes Absolute Auto 300 /uL (1100-4500); Lymphocytes Percent Auto 9.5 % (25-40); Mean Corpuscular HGB Conc 32.5 % (30-36); Mean Corpuscular Hemoglobin 31.6 PG (26-34); Mean Corpuscular Volume 97.3 fL (80-100); Monocytes Absolute Auto 500 /uL (0-900); Monocytes Percent Auto 15.6 % (3-14); Neutrophils Absolute Auto 2100 /uL (1500-7000); Neutrophils Percent Auto 71.6 % (50-75); Platelet Count 264 X10^3/uL (150-400); Red Blood Cell Count 4.25 X10^6/uL (4.5-5.9); Red Cell Distribution Width 15.7 % (11.6-14.8); White Blood Cell Count 2.9 X10^3/uL (4.5-11.0)
[2024-11-23 15:41] LABS: Alanine Aminotransferase 75 IU/L (<50); Albumin 4.1 g/dL (3.5-5.0); Albumin Globulin Ratio 1.6 (1.0-2.8); Alkaline Phosphatase 96 U/L (38-126); Aspartate Aminotransferase 58 IU/L (17-59); Bilirubin Total 0.6 mg/dL (0.2-1.3); Blood Urea Nitrogen 12 mg/dL (9-20); Calcium 9.3 mg/dL (8.4-10.2); Carbon Dioxide 27 mmol/L (22-32); Chloride 106 mmol/L (98-107); Cholesterol 196 mg/dL (140-199); Estimated Glomerular Filt Rate > 60 mL/min (>60); Globulin 2.5 g/dL (1.7-4.1); Glucose 90 mg/dL (70-99); HDL Cholesterol 59 mg/dL (40-60); LDL Cholesterol Calculated 119 mg/dL (<100); Sodium 139 mmol/L (137-145); Total Protein 6.6 g/dL (6.3-8.2); Triglycerides 90 mg/dL (35-150)
[2024-11-23 15:42] LABS: HEMOLYSIS 63 (0-50); Potassium 4.3 mmol/L (3.4-5.1)
[2024-11-23 16:02] LABS: Free T4, Direct Thyroxine 1.58 ng/dL (0.78-2.19)
[2024-11-23 16:17] LABS: Thyroid Stimulating Hormone < 0.015 uIU/mL (0.47-4.68)
== END ==
PROVIDERS: Family Provider Internal Medicine; PCP Internal Medicine; Referring Provider Internal Medicine; Visit Provider Internal Medicine
DX: I10 Essential (primary) hypertension (principal); E78.2 Mixed hyperlipidemia; E03.9 Hypothyroidism, unspecified
CPT/HCPCS: 36415; 80053; 80061; 84439; 84443; 85025

== ENCOUNTER → 2024-12-08 11:53 | Outpatient (ROUT) | payer MEDICARE, OTHER, SELFPAY ==
[2024-03-27 14:07] VITALS: PULSE 93; RESP 18; O2SAT 99; BMI 30.3
[2024-12-08 12:02] LABS: Appearance Urine UA CLEAR; Bilirubin Urine UA NEGATIVE (NEGATIVE); Color Urine UA YELLOW; Glucose Urine UA NEGATIVE (Negative); Ketones Urine UA NEGATIVE (NEGATIVE); Leukocyte Esterase Urine UA 1+ (NEGATIVE); Nitrite Urine UA POSITIVE (Negative); Occult Blood Urine UA NEGATIVE (Negative); Protein Urine UA NEGATIVE (Negative); Specific Gravity Urine UA <=1.005 (1.000-1.035); Urobilinogen Urine UA 0.2 E.U./dL (0.2)
[2024-12-08 12:29] LABS: Bacteria Urine Moderate (10-30); Culture Indicated Urine Specimen Cultured; RBC Urine None Seen (0-5/HPF); Squamous Epithelial Cell Urine 5-10 /HPF (0-5/HPF); Urine Volume 10mL (spun); WBC Urine 5-10/HPF (0-5/HPF)
== END ==
LOC: LAB 11:53
PROVIDERS: Family Provider Internal Medicine; PCP Internal Medicine; Visit Provider Internal Medicine
DX: N39.0 Urinary tract infection, site not specified (principal)
CPT/HCPCS: 81001; 87077; 87086; 87186

== ENCOUNTER → 2024-12-29 14:23 | Outpatient (ROUT) | payer MEDICARE, OTHER, SELFPAY ==
[2024-03-27 14:07] VITALS: PULSE 93; RESP 18; O2SAT 99; BMI 30.3
[2024-12-29 14:33] LABS: Appearance Urine UA CLEAR; Bilirubin Urine UA NEGATIVE (NEGATIVE); Color Urine UA YELLOW; Glucose Urine UA NEGATIVE (Negative); Ketones Urine UA NEGATIVE (NEGATIVE); Leukocyte Esterase Urine UA 2+ (NEGATIVE); Nitrite Urine UA POSITIVE (Negative); Occult Blood Urine UA NEGATIVE (Negative); Protein Urine UA NEGATIVE (Negative); Specific Gravity Urine UA <=1.005 (1.000-1.035); Urobilinogen Urine UA 0.2 E.U./dL (0.2); pH Urine UA 5.5 (4.5-8.0)
[2024-12-29 14:34] LABS: Urine Volume 10mL (spun)
[2024-12-29 14:36] LABS: Bacteria Urine Moderate (10-30); RBC Urine None Seen (0-5/HPF); Squamous Epithelial Cell Urine 1-5 /HPF (0-5/HPF); WBC Urine 10-30/HPF (0-5/HPF)
== END ==
PROVIDERS: Family Provider Internal Medicine; PCP Internal Medicine; Visit Provider Urology
DX: N39.0 Urinary tract infection, site not specified (principal)
CPT/HCPCS: 81001; 87086

== ENCOUNTER → 2025-01-19 13:28 | Outpatient (ROUT) | payer MEDICARE, OTHER, SELFPAY ==
[2024-03-27 14:07] VITALS: PULSE 93; RESP 18; O2SAT 99; BMI 30.3
[2025-01-19 13:40] LABS: Appearance Urine UA CLEAR; Bilirubin Urine UA NEGATIVE (NEGATIVE); Color Urine UA YELLOW; Glucose Urine UA NEGATIVE (Negative); Ketones Urine UA NEGATIVE (NEGATIVE); Leukocyte Esterase Urine UA 1+ (NEGATIVE); Nitrite Urine UA POSITIVE (Negative); Occult Blood Urine UA NEGATIVE (Negative); Protein Urine UA NEGATIVE (Negative); Specific Gravity Urine UA 1.010 (1.000-1.035); Urobilinogen Urine UA 0.2 E.U./dL (0.2); pH Urine UA 7.0 (4.5-8.0)
== END ==
PROVIDERS: Family Provider Internal Medicine; PCP Internal Medicine; Visit Provider Urology
DX: N39.0 Urinary tract infection, site not specified (principal)
CPT/HCPCS: 81001; 87077; 87086; 87186

== ENCOUNTER → 2025-02-12 16:22 | Outpatient (ROUT) | payer MEDICARE, OTHER, SELFPAY ==
[2024-03-27 14:07] VITALS: PULSE 93; RESP 18; O2SAT 99; BMI 30.3
[2025-02-12 16:45] LABS: Appearance Urine UA CLEAR; Bilirubin Urine UA NEGATIVE (NEGATIVE); Color Urine UA YELLOW; Glucose Urine UA NEGATIVE (Negative); Ketones Urine UA NEGATIVE (NEGATIVE); Leukocyte Esterase Urine UA 1+ (NEGATIVE); Nitrite Urine UA POSITIVE (Negative); Occult Blood Urine UA NEGATIVE (Negative); Protein Urine UA NEGATIVE (Negative); Specific Gravity Urine UA 1.015 (1.000-1.035); Urobilinogen Urine UA 0.2 E.U./dL (0.2); pH Urine UA 6.5 (4.5-8.0)
[2025-02-12 16:55] LABS: Culture Indicated Urine Specimen Cultured
== END ==
PROVIDERS: Family Provider Internal Medicine; PCP Internal Medicine; Visit Provider Urology
DX: N39.0 Urinary tract infection, site not specified (principal)
CPT/HCPCS: 81001; 87077; 87086; 87186

== ENCOUNTER → 2025-03-22 12:45 | Outpatient (ROUT) | payer MEDICARE, OTHER, SELFPAY ==
[2024-03-27 14:07] VITALS: PULSE 93; RESP 18; O2SAT 99; BMI 30.3
[2025-03-22 13:02] LABS: Appearance Urine UA SL CLOUDY; Bilirubin Urine UA NEGATIVE (NEGATIVE); Color Urine UA YELLOW; Glucose Urine UA NEGATIVE (Negative); Ketones Urine UA NEGATIVE (NEGATIVE); Leukocyte Esterase Urine UA 3+ (NEGATIVE); Nitrite Urine UA POSITIVE (Negative); Occult Blood Urine UA NEGATIVE (Negative); Protein Urine UA NEGATIVE (Negative); Specific Gravity Urine UA 1.010 (1.000-1.035); Urobilinogen Urine UA 0.2 E.U./dL (0.2); pH Urine UA 5.5 (4.5-8.0)
== END ==
PROVIDERS: Family Provider Internal Medicine; PCP Internal Medicine; Visit Provider Urology
DX: N39.0 Urinary tract infection, site not specified (principal)
CPT/HCPCS: 81001; 87077; 87086; 87186

== ENCOUNTER → 2025-04-13 13:41 | Outpatient (ROUT) | payer MEDICARE, OTHER, SELFPAY ==
[2024-03-27 14:07] VITALS: PULSE 93; RESP 18; O2SAT 99; BMI 30.3
[2025-04-13 14:04] LABS: Appearance Urine UA CLOUDY; Bilirubin Urine UA NEGATIVE (NEGATIVE); Color Urine UA YELLOW; Glucose Urine UA NEGATIVE (Negative); Ketones Urine UA NEGATIVE (NEGATIVE); Leukocyte Esterase Urine UA 3+ (NEGATIVE); Nitrite Urine UA POSITIVE (Negative); Occult Blood Urine UA TRACE-INTACT (Negative); Protein Urine UA NEGATIVE (Negative); Specific Gravity Urine UA 1.020 (1.000-1.035); Urobilinogen Urine UA 0.2 E.U./dL (0.2); pH Urine UA 6.0 (4.5-8.0)
[2025-04-13 14:17] LABS: Culture Indicated Urine Specimen Cultured
== END ==
PROVIDERS: Family Provider Internal Medicine; PCP Internal Medicine; Visit Provider Internal Medicine
DX: N39.0 Urinary tract infection, site not specified (principal)
CPT/HCPCS: 81001; 87077; 87086; 87186

== ENCOUNTER → 2025-05-04 13:45 | Outpatient (ROUT) | payer MEDICARE, OTHER, SELFPAY ==
[2024-03-27 14:07] VITALS: PULSE 93; RESP 18; O2SAT 99; BMI 30.3
[2025-05-04 13:53] LABS: Bilirubin Urine UA NEGATIVE (NEGATIVE); Color Urine UA YELLOW; Glucose Urine UA NEGATIVE (Negative); Ketones Urine UA NEGATIVE (NEGATIVE); Leukocyte Esterase Urine UA TRACE (NEGATIVE); Nitrite Urine UA POSITIVE (Negative); Occult Blood Urine UA TRACE-INTACT (Negative); Protein Urine UA NEGATIVE (Negative); Specific Gravity Urine UA 1.010 (1.000-1.035); Urobilinogen Urine UA 0.2 E.U./dL (0.2); pH Urine UA 6.0 (4.5-8.0)
[2025-05-04 14:04] LABS: Appearance Urine UA CLOUDY
[2025-05-04 14:05] LABS: Culture Indicated Urine Specimen Cultured
== END ==
PROVIDERS: Family Provider Internal Medicine; PCP Internal Medicine; Visit Provider Internal Medicine
DX: N39.0 Urinary tract infection, site not specified (principal)
CPT/HCPCS: 81001; 87086

== ENCOUNTER → 2025-05-25 14:33 | Outpatient (ROUT) | payer MEDICARE, OTHER, SELFPAY ==
[2024-03-27 14:07] VITALS: PULSE 93; RESP 18; O2SAT 99; BMI 30.3
[2025-05-25 15:03] LABS: Appearance Urine UA CLEAR; Bilirubin Urine UA NEGATIVE (NEGATIVE); Color Urine UA YELLOW; Glucose Urine UA NEGATIVE (Negative); Ketones Urine UA NEGATIVE (NEGATIVE); Leukocyte Esterase Urine UA 1+ (NEGATIVE); Nitrite Urine UA POSITIVE (Negative); Occult Blood Urine UA TRACE-INTACT (Negative); Protein Urine UA NEGATIVE (Negative); Specific Gravity Urine UA <=1.005 (1.000-1.035); Urobilinogen Urine UA 0.2 E.U./dL (0.2); pH Urine UA 6.0 (4.5-8.0)
== END ==
PROVIDERS: Family Provider Internal Medicine; PCP Internal Medicine; Visit Provider Internal Medicine
DX: N39.0 Urinary tract infection, site not specified (principal)
CPT/HCPCS: 81001; 87086

== ENCOUNTER → 2025-06-15 13:48 | Outpatient (ROUT) | payer MEDICARE, OTHER, SELFPAY ==
[2024-03-27 14:07] VITALS: PULSE 93; RESP 18; O2SAT 99; BMI 30.3
[2025-06-15 13:56] LABS: Appearance Urine UA CLEAR; Bilirubin Urine UA NEGATIVE (NEGATIVE); Color Urine UA YELLOW; Glucose Urine UA NEGATIVE (Negative); Ketones Urine UA NEGATIVE (NEGATIVE); Leukocyte Esterase Urine UA 2+ (NEGATIVE); Nitrite Urine UA POSITIVE (Negative); Occult Blood Urine UA 1+ (Negative); Protein Urine UA NEGATIVE (Negative); Specific Gravity Urine UA 1.010 (1.000-1.035); Urobilinogen Urine UA 0.2 E.U./dL (0.2); pH Urine UA 6.0 (4.5-8.0)
== END ==
PROVIDERS: Family Provider Internal Medicine; PCP Internal Medicine; Visit Provider Internal Medicine
DX: N39.0 Urinary tract infection, site not specified (principal)
CPT/HCPCS: 81001; 87086

== ENCOUNTER → 2025-07-06 12:53 | Outpatient (ROUT) | payer MEDICARE, OTHER, SELFPAY ==
[2024-03-27 14:07] VITALS: PULSE 93; RESP 18; O2SAT 99; BMI 30.3
[2025-07-06 13:07] LABS: Appearance Urine UA SL CLOUDY; Bilirubin Urine UA NEGATIVE (NEGATIVE); Color Urine UA YELLOW; Glucose Urine UA NEGATIVE (Negative); Ketones Urine UA NEGATIVE (NEGATIVE); Leukocyte Esterase Urine UA 2+ (NEGATIVE); Nitrite Urine UA POSITIVE (Negative); Occult Blood Urine UA NEGATIVE (Negative); Protein Urine UA NEGATIVE (Negative); Specific Gravity Urine UA 1.010 (1.000-1.035); Urobilinogen Urine UA 0.2 E.U./dL (0.2); pH Urine UA 6.0 (4.5-8.0)
[2025-07-06 13:11] LABS: Culture Indicated Urine Specimen Cultured
== END ==
PROVIDERS: Family Provider Internal Medicine; PCP Internal Medicine; Visit Provider Internal Medicine
DX: N39.0 Urinary tract infection, site not specified (principal)
CPT/HCPCS: 81001; 87077; 87086; 87186